=== PATIENT | male | born 1950 | race African-American/Black ===

== ENCOUNTER → 2020-03-06 13:56 | Outpatient (BNVA) | payer MEDICARE, SELFPAY | PROVIDERS: PCP Internal Medicine; Visit Provider Internal Medicine | DX: I82.890 Acute embolism and thrombosis of other specified veins (principal); Z51.81 Encounter for therapeutic drug level monitoring; Z79.01 Long term (current) use of anticoagulants | CPT/HCPCS: 85610 ==

== ENCOUNTER → 2020-04-03 13:58 | Outpatient (BNVA) | payer MEDICARE, SELFPAY | PROVIDERS: PCP Internal Medicine; Visit Provider Internal Medicine | DX: I82.890 Acute embolism and thrombosis of other specified veins (principal); Z51.81 Encounter for therapeutic drug level monitoring; Z79.01 Long term (current) use of anticoagulants | CPT/HCPCS: 85610; 99211 ==

== ENCOUNTER → 2020-05-01 14:05 | Outpatient (BNVA) | payer MEDICARE, SELFPAY | PROVIDERS: PCP Internal Medicine; Visit Provider Internal Medicine | DX: I82.890 Acute embolism and thrombosis of other specified veins (principal); Z51.81 Encounter for therapeutic drug level monitoring; Z79.01 Long term (current) use of anticoagulants | CPT/HCPCS: 85610; 99211 ==

== ENCOUNTER → 2020-05-29 14:28 | Outpatient (BNVA) | payer MEDICARE, SELFPAY | PROVIDERS: PCP Internal Medicine; Visit Provider Internal Medicine | DX: I82.890 Acute embolism and thrombosis of other specified veins (principal); Z51.81 Encounter for therapeutic drug level monitoring; Z79.01 Long term (current) use of anticoagulants | CPT/HCPCS: 85610; 99211 ==

== ENCOUNTER → 2020-06-26 13:43 | Outpatient (BNVA) | payer MEDICARE, SELFPAY | PROVIDERS: PCP Internal Medicine; Visit Provider Internal Medicine | DX: I82.890 Acute embolism and thrombosis of other specified veins (principal); Z51.81 Encounter for therapeutic drug level monitoring; Z79.01 Long term (current) use of anticoagulants | CPT/HCPCS: 85610; 99211 ==

== ENCOUNTER → 2020-07-24 14:21 | Outpatient (BNVA) | payer MEDICARE, SELFPAY | PROVIDERS: PCP Internal Medicine; Visit Provider Internal Medicine | DX: I82.890 Acute embolism and thrombosis of other specified veins (principal); Z51.81 Encounter for therapeutic drug level monitoring; Z79.01 Long term (current) use of anticoagulants | CPT/HCPCS: 85610; 99211 ==

== ENCOUNTER → 2020-08-21 14:26 | Outpatient (BNVA) | payer MEDICARE, SELFPAY | PROVIDERS: PCP Internal Medicine; Visit Provider Internal Medicine | DX: I82.890 Acute embolism and thrombosis of other specified veins (principal); Z51.81 Encounter for therapeutic drug level monitoring; Z79.01 Long term (current) use of anticoagulants | CPT/HCPCS: 85610; 99211 ==

== ENCOUNTER → 2020-09-18 14:24 | Outpatient (BNVA) | payer MEDICARE, SELFPAY | PROVIDERS: PCP Internal Medicine; Visit Provider Internal Medicine | DX: D73.5 Infarction of spleen (principal); Z51.81 Encounter for therapeutic drug level monitoring; Z79.01 Long term (current) use of anticoagulants | CPT/HCPCS: 85610; 99211 ==

== ENCOUNTER → 2020-10-19 15:15 | Outpatient (BNVA) | payer MEDICARE, SELFPAY | PROVIDERS: PCP Internal Medicine; Visit Provider Internal Medicine | DX: D73.5 Infarction of spleen (principal); Z51.81 Encounter for therapeutic drug level monitoring; Z79.01 Long term (current) use of anticoagulants | CPT/HCPCS: 85610; 99211 ==

== ENCOUNTER → 2020-11-14 15:20 | Outpatient (BNVA) | payer MEDICARE, SELFPAY | PROVIDERS: PCP Internal Medicine; Visit Provider Internal Medicine | DX: D73.5 Infarction of spleen (principal); Z51.81 Encounter for therapeutic drug level monitoring; Z79.01 Long term (current) use of anticoagulants | CPT/HCPCS: 85610; 99211 ==

== ENCOUNTER → 2020-12-12 14:34 | Outpatient (BNVA) | payer MEDICARE, SELFPAY | PROVIDERS: PCP Internal Medicine; Visit Provider Internal Medicine | DX: I82.409 Acute embolism and thrombosis of unspecified deep veins of unspecified lower extremity (principal); D73.5 Infarction of spleen; Z51.81 Encounter for therapeutic drug level monitoring; Z79.01 Long term (current) use of anticoagulants | CPT/HCPCS: 85610; 99211 ==

== ENCOUNTER → 2021-01-02 14:20 | Outpatient (BNVA) | payer MEDICARE, SELFPAY | PROVIDERS: PCP Internal Medicine; Visit Provider Internal Medicine | DX: I82.890 Acute embolism and thrombosis of other specified veins (principal); Z79.01 Long term (current) use of anticoagulants; Z51.81 Encounter for therapeutic drug level monitoring | CPT/HCPCS: 85610; 99211 ==

== ENCOUNTER → 2021-01-30 14:00 | Outpatient (BNVA) | payer MEDICARE, SELFPAY | PROVIDERS: PCP Internal Medicine; Visit Provider Internal Medicine | DX: D73.5 Infarction of spleen (principal); I82.409 Acute embolism and thrombosis of unspecified deep veins of unspecified lower extremity; Z51.81 Encounter for therapeutic drug level monitoring; Z79.01 Long term (current) use of anticoagulants | CPT/HCPCS: 85610; 99211 ==

== ENCOUNTER → 2021-02-27 14:38 | Outpatient (BNVA) | payer MEDICARE, SELFPAY | PROVIDERS: PCP Internal Medicine; Visit Provider Internal Medicine | DX: D73.5 Infarction of spleen (principal); Z51.81 Encounter for therapeutic drug level monitoring; Z79.01 Long term (current) use of anticoagulants | CPT/HCPCS: 85610; 99211 ==

== ENCOUNTER → 2021-03-27 14:10 | Outpatient (BNVA) | payer MEDICARE, SELFPAY | PROVIDERS: PCP Internal Medicine; Visit Provider Internal Medicine | DX: D73.5 Infarction of spleen (principal); Z51.81 Encounter for therapeutic drug level monitoring; Z79.01 Long term (current) use of anticoagulants | CPT/HCPCS: 85610; 99211 ==

== ENCOUNTER → 2021-04-24 13:56 | Outpatient (BNVA) | payer MEDICARE, SELFPAY | PROVIDERS: PCP Internal Medicine; Visit Provider Internal Medicine | DX: I82.409 Acute embolism and thrombosis of unspecified deep veins of unspecified lower extremity (principal); D73.5 Infarction of spleen; Z51.81 Encounter for therapeutic drug level monitoring; Z79.01 Long term (current) use of anticoagulants | CPT/HCPCS: 85610; 99211 ==

== ENCOUNTER → 2021-05-22 14:26 | Outpatient (BNVA) | payer MEDICARE, SELFPAY | PROVIDERS: PCP Internal Medicine; Visit Provider Internal Medicine | DX: D73.5 Infarction of spleen (principal); I82.409 Acute embolism and thrombosis of unspecified deep veins of unspecified lower extremity; Z51.81 Encounter for therapeutic drug level monitoring; Z79.01 Long term (current) use of anticoagulants | CPT/HCPCS: 85610; 99211 ==

== ENCOUNTER → 2021-06-19 14:17 | Outpatient (BNVA) | payer MEDICARE, SELFPAY | PROVIDERS: PCP Internal Medicine; Visit Provider Internal Medicine | DX: D73.5 Infarction of spleen (principal); I82.409 Acute embolism and thrombosis of unspecified deep veins of unspecified lower extremity; Z51.81 Encounter for therapeutic drug level monitoring; Z79.01 Long term (current) use of anticoagulants | CPT/HCPCS: 85610; 99211 ==

== ENCOUNTER → 2021-07-17 14:53 | Outpatient (BNVA) | payer MEDICARE, SELFPAY | PROVIDERS: PCP Internal Medicine; Visit Provider Internal Medicine | DX: D73.5 Infarction of spleen (principal); I82.409 Acute embolism and thrombosis of unspecified deep veins of unspecified lower extremity; Z51.81 Encounter for therapeutic drug level monitoring; Z79.01 Long term (current) use of anticoagulants | CPT/HCPCS: 85610; 99211 ==

== ENCOUNTER → 2021-08-14 14:31 | Outpatient (BNVA) | payer MEDICARE, SELFPAY | PROVIDERS: PCP Internal Medicine; Visit Provider Internal Medicine | DX: D73.5 Infarction of spleen (principal); I82.409 Acute embolism and thrombosis of unspecified deep veins of unspecified lower extremity; Z51.81 Encounter for therapeutic drug level monitoring; Z79.01 Long term (current) use of anticoagulants | CPT/HCPCS: 85610; 99211 ==

== ENCOUNTER → 2021-09-11 14:13 | Outpatient (BNVA) | payer MEDICARE, SELFPAY | PROVIDERS: PCP Internal Medicine; Visit Provider Internal Medicine | DX: I82.890 Acute embolism and thrombosis of other specified veins (principal); Z79.01 Long term (current) use of anticoagulants; Z51.81 Encounter for therapeutic drug level monitoring | CPT/HCPCS: 85610; 99211 ==

== ENCOUNTER → 2021-10-09 14:17 | Outpatient (BNVA) | payer MEDICARE, SELFPAY | PROVIDERS: PCP Internal Medicine; Visit Provider Internal Medicine | DX: I82.409 Acute embolism and thrombosis of unspecified deep veins of unspecified lower extremity (principal); D73.5 Infarction of spleen; Z79.01 Long term (current) use of anticoagulants; Z51.81 Encounter for therapeutic drug level monitoring | CPT/HCPCS: 85610; 99211 ==

== ENCOUNTER → 2021-11-06 14:09 | Outpatient (BNVA) | payer MEDICARE, SELFPAY | PROVIDERS: PCP Internal Medicine; Visit Provider Internal Medicine | DX: D73.5 Infarction of spleen (principal); I82.409 Acute embolism and thrombosis of unspecified deep veins of unspecified lower extremity; Z79.01 Long term (current) use of anticoagulants; Z51.81 Encounter for therapeutic drug level monitoring | CPT/HCPCS: 85610; 99211 ==

== ENCOUNTER → 2021-11-20 14:08 | Outpatient (BNVA) | payer MEDICARE, SELFPAY | PROVIDERS: PCP Internal Medicine; Visit Provider Internal Medicine | DX: D73.5 Infarction of spleen (principal); I82.409 Acute embolism and thrombosis of unspecified deep veins of unspecified lower extremity; Z51.81 Encounter for therapeutic drug level monitoring; Z79.01 Long term (current) use of anticoagulants | CPT/HCPCS: 85610; 99211 ==

== ENCOUNTER → 2021-12-04 14:12 | Outpatient (BNVA) | payer MEDICARE, SELFPAY | PROVIDERS: PCP Internal Medicine; Visit Provider Internal Medicine | DX: I82.890 Acute embolism and thrombosis of other specified veins (principal); Z51.81 Encounter for therapeutic drug level monitoring; Z79.01 Long term (current) use of anticoagulants | CPT/HCPCS: 85610; 99211 ==

== ENCOUNTER → 2022-01-08 14:16 | Outpatient (BNVA) | payer MEDICARE, SELFPAY | PROVIDERS: PCP Internal Medicine; Visit Provider Internal Medicine | DX: D73.5 Infarction of spleen (principal); Z79.01 Long term (current) use of anticoagulants; Z51.81 Encounter for therapeutic drug level monitoring | CPT/HCPCS: 85610; 99211 ==

== ENCOUNTER → 2022-02-05 14:26 | Outpatient (BNVA) | payer MEDICARE, SELFPAY | PROVIDERS: PCP Internal Medicine; Visit Provider Internal Medicine | DX: D73.5 Infarction of spleen (principal); Z79.01 Long term (current) use of anticoagulants; Z51.81 Encounter for therapeutic drug level monitoring | CPT/HCPCS: 85610; 99211 ==

== ENCOUNTER → 2022-03-19 14:12 | Outpatient (BNVA) | payer MEDICARE, SELFPAY | PROVIDERS: PCP Internal Medicine; Visit Provider Internal Medicine | DX: D73.5 Infarction of spleen (principal); I82.409 Acute embolism and thrombosis of unspecified deep veins of unspecified lower extremity; Z79.01 Long term (current) use of anticoagulants; Z51.81 Encounter for therapeutic drug level monitoring | CPT/HCPCS: 85610; 99211 ==

== ENCOUNTER → 2022-04-09 14:08 | Outpatient (BNVA) | payer MEDICARE, SELFPAY | PROVIDERS: PCP Internal Medicine; Visit Provider Internal Medicine | DX: D73.5 Infarction of spleen (principal); I82.409 Acute embolism and thrombosis of unspecified deep veins of unspecified lower extremity; Z79.01 Long term (current) use of anticoagulants; Z51.81 Encounter for therapeutic drug level monitoring | CPT/HCPCS: 85610; 99211 ==

== ENCOUNTER → 2022-05-07 14:09 | Outpatient (BNVA) | payer MEDICARE, SELFPAY | PROVIDERS: PCP Internal Medicine; Visit Provider Internal Medicine | DX: D73.5 Infarction of spleen (principal); Z86.718 Personal history of other venous thrombosis and embolism; Z79.01 Long term (current) use of anticoagulants; Z51.81 Encounter for therapeutic drug level monitoring | CPT/HCPCS: 85610; 99211 ==

== ENCOUNTER → 2022-06-04 14:01 | Outpatient (BNVA) | payer MEDICARE, SELFPAY | PROVIDERS: PCP Internal Medicine; Visit Provider Internal Medicine | DX: D73.5 Infarction of spleen (principal); I82.409 Acute embolism and thrombosis of unspecified deep veins of unspecified lower extremity; Z79.01 Long term (current) use of anticoagulants; Z51.81 Encounter for therapeutic drug level monitoring | CPT/HCPCS: 85610; 99211 ==

== ENCOUNTER → 2022-07-02 14:04 | Outpatient (BNVA) | payer MEDICARE, SELFPAY | PROVIDERS: PCP Internal Medicine; Visit Provider Internal Medicine | DX: D73.5 Infarction of spleen (principal); I82.409 Acute embolism and thrombosis of unspecified deep veins of unspecified lower extremity; Z79.01 Long term (current) use of anticoagulants; Z51.81 Encounter for therapeutic drug level monitoring | CPT/HCPCS: 85610; 99211 ==

== ENCOUNTER → 2022-07-30 13:56 | Outpatient (BNVA) | payer MEDICARE, SELFPAY | PROVIDERS: PCP Internal Medicine; Visit Provider Internal Medicine | DX: D73.5 Infarction of spleen (principal); I82.409 Acute embolism and thrombosis of unspecified deep veins of unspecified lower extremity; Z79.01 Long term (current) use of anticoagulants; Z51.81 Encounter for therapeutic drug level monitoring | CPT/HCPCS: 85610; 99211 ==

== ENCOUNTER → 2022-08-27 14:09 | Outpatient (BNVA) | payer MEDICARE, SELFPAY | PROVIDERS: PCP Internal Medicine; Visit Provider Internal Medicine | DX: D73.5 Infarction of spleen (principal); I82.409 Acute embolism and thrombosis of unspecified deep veins of unspecified lower extremity; Z79.01 Long term (current) use of anticoagulants; Z51.81 Encounter for therapeutic drug level monitoring | CPT/HCPCS: 85610; 99211 ==

== ENCOUNTER → 2022-09-17 14:38 | Outpatient (BNVA) | payer MEDICARE, SELFPAY | PROVIDERS: PCP Internal Medicine; Visit Provider Internal Medicine | DX: D73.5 Infarction of spleen (principal); I82.409 Acute embolism and thrombosis of unspecified deep veins of unspecified lower extremity; Z79.01 Long term (current) use of anticoagulants; Z51.81 Encounter for therapeutic drug level monitoring | CPT/HCPCS: 85610; 99211 ==

== ENCOUNTER → 2022-10-22 14:11 | Outpatient (BNVA) | payer MEDICARE, SELFPAY | PROVIDERS: PCP Internal Medicine; Visit Provider Internal Medicine | DX: D73.5 Infarction of spleen (principal); I82.409 Acute embolism and thrombosis of unspecified deep veins of unspecified lower extremity; Z79.01 Long term (current) use of anticoagulants; Z51.81 Encounter for therapeutic drug level monitoring | CPT/HCPCS: 85610; 99211 ==

== ENCOUNTER → 2022-11-19 14:08 | Outpatient (BNVA) | payer MEDICARE, SELFPAY | PROVIDERS: PCP Internal Medicine; Visit Provider Internal Medicine | DX: D73.5 Infarction of spleen (principal); Z79.01 Long term (current) use of anticoagulants; Z51.81 Encounter for therapeutic drug level monitoring | CPT/HCPCS: 85610; 99211 ==

== ENCOUNTER 2022-12-17 14:03 | Outpatient (AMB) | payer MEDICARE, SELFPAY ==
--- NOTE | 2022-12-17 14:07 | MHC.OFFVISCO ---
Intake Intake Visit Reasons: Anticoagulation Allergies No Known Allergies Allergy (Verified 12/17/22 14:03) Medication List - Last Reconciled 12/17/22 by Mary Santa RN allopurinol 300 mg PO DAILY fenofibrate 54 mg PO DAILY gabapentin 100 mg PO DAILY PRN hydrochlorothiazide 12.5 mg (1/2 x 25 mg) PO DAILY hydroxyurea 1,000 mg (2 x 500 mg) PO DAILY losartan 50 mg PO DAILY warfarin 1 mg See Protocol PO DAILY Nursing Note INR: 3.0- in therapeutic range Medications and supplements reviewed- no changes No changes in health, diet, medications, or supplements, Denies any signs and symptoms of bleeding or bruising or clotting. 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
[2022-12-18 06:40] LABS: Prothrombin Time Whole Bld POC 36.6 sec (11.1-13.5)
== END 2022-12-17 14:14 | disposition home or self-care (01) ==
LOC: HO.ACS 14:03
PROVIDERS: PCP Internal Medicine; Visit Provider Internal Medicine
DX: Z79.01 Long term (current) use of anticoagulants (principal)

== ENCOUNTER → 2022-12-17 14:03 | Outpatient (BNVA) | payer MEDICARE, SELFPAY | PROVIDERS: PCP Internal Medicine; Visit Provider Internal Medicine | DX: D73.5 Infarction of spleen (principal); Z79.01 Long term (current) use of anticoagulants; Z51.81 Encounter for therapeutic drug level monitoring | CPT/HCPCS: 85610; 99211 ==

== ENCOUNTER 2023-01-21 14:16 | Outpatient (AMB) | payer MEDICARE, SELFPAY ==
[2023-01-21 14:25] LABS: Prothrombin Time Whole Bld POC 36.8 sec (11.1-13.5); ~PT, ~INR - Anti Coag Clinic 3.1 (0.9-1.1)
--- NOTE | 2023-01-21 14:26 | MHC.OFFVISCO ---
Intake Intake Visit Reasons: Anticoagulation Allergies No Known Allergies Allergy (Verified 01/21/23 14:18) Medication List - Last Reconciled 01/21/23 by Mariel Wood RN allopurinol 300 mg PO DAILY fenofibrate 54 mg PO DAILY gabapentin 100 mg PO DAILY PRN hydrochlorothiazide 12.5 mg (1/2 x 25 mg) PO DAILY hydroxyurea 1,000 mg (2 x 500 mg) PO DAILY losartan 50 mg PO DAILY warfarin 1 mg See Protocol PO DAILY Nursing Note NO CP,SOB,DIET/MED CHANGES,FALLS OR SX OF BLEEDING. CONTINUE PRESENT DOSE AND FOLLOW-UP IN 4 WEEKS. GOOD UNDERSTANDING OF DOSING INSTR. Coding Level of Care Code Est Patient Level 1 Diagnoses Current use of anticoagulant therapy Z79.01 Assessment & Plan Assessment & Plan (1) Current use of anticoagulant therapy: Code(s): Z79.01 - [facility] (current) use of anticoagulants Category: Medical
== END 2023-01-21 14:29 | disposition home or self-care (01) ==
LOC: HO.ACS 14:16
PROVIDERS: PCP Internal Medicine; Visit Provider Internal Medicine
DX: Z79.01 Long term (current) use of anticoagulants (principal)

== ENCOUNTER → 2023-01-21 14:16 | Outpatient (BNVA) | payer MEDICARE, SELFPAY | PROVIDERS: PCP Internal Medicine; Visit Provider Internal Medicine | DX: D73.5 Infarction of spleen (principal); Z79.01 Long term (current) use of anticoagulants; Z51.81 Encounter for therapeutic drug level monitoring | CPT/HCPCS: 85610; 99211 ==

== ENCOUNTER 2023-02-25 14:20 | Outpatient (AMB) | payer MEDICARE, SELFPAY ==
[2023-02-25 14:31] LABS: Prothrombin Time Whole Bld POC 31.5 sec (11.1-13.5); ~PT, ~INR - Anti Coag Clinic 2.6 (0.9-1.1)
--- NOTE | 2023-02-25 14:31 | MHC.OFFVISCO ---
Intake Intake Visit Reasons: Anticoagulation Allergies No Known Allergies Allergy (Verified 02/25/23 14:26) Medication List - Last Reconciled 02/25/23 by Mary Santa RN allopurinol 300 mg PO DAILY fenofibrate 54 mg PO DAILY gabapentin 100 mg PO DAILY PRN hydrochlorothiazide 12.5 mg (1/2 x 25 mg) PO DAILY hydroxyurea 1,000 mg (2 x 500 mg) PO DAILY losartan 50 mg PO DAILY warfarin 1 mg See Protocol PO DAILY Nursing Note INR: 2.6- in therapeutic range Medications and supplements reviewed No changes in health, diet, medications, or supplements, Denies any signs and symptoms of bleeding or bruising or clotting. 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
== END 2023-02-25 14:36 | disposition home or self-care (01) ==
LOC: HO.ACS 14:20
PROVIDERS: PCP Internal Medicine; Visit Provider Internal Medicine
DX: Z79.01 Long term (current) use of anticoagulants (principal)

== ENCOUNTER → 2023-02-25 14:20 | Outpatient (BNVA) | payer MEDICARE, SELFPAY | PROVIDERS: PCP Internal Medicine; Visit Provider Internal Medicine | DX: I82.890 Acute embolism and thrombosis of other specified veins (principal); Z51.81 Encounter for therapeutic drug level monitoring; Z79.01 Long term (current) use of anticoagulants | CPT/HCPCS: 85610; 99211 ==

== ENCOUNTER 2023-03-26 15:20 | Outpatient (AMB) | payer MEDICARE, SELFPAY ==
[2023-03-26 15:29] LABS: Prothrombin Time Whole Bld POC 40.3 sec (11.1-13.5); ~PT, ~INR - Anti Coag Clinic 3.4 (0.9-1.1)
--- NOTE | 2023-03-26 15:52 | MHC.OFFVISCO ---
Intake Intake Visit Reasons: Anticoagulation Allergies No Known Allergies Allergy (Verified 03/26/23 15:20) Medication List - Last Reconciled 03/26/23 by Tawny Pruitt RN allopurinol 300 mg PO DAILY fenofibrate 54 mg PO DAILY gabapentin 100 mg PO DAILY PRN hydrochlorothiazide 12.5 mg (1/2 x 25 mg) PO DAILY hydroxyurea 1,000 mg (2 x 500 mg) PO DAILY losartan 50 mg PO DAILY warfarin 1 mg See Protocol PO DAILY Nursing Note INR 3.4?? out of therapeutic range Medications and supplements reviewed Patient status: HAS N OT HAD ENOUGH GREENS, B/P HAS BEEN GOOD HCTZ WILL BE D/CD 03/30/23 TO PRESERVE RENAL FUNCTION Medications or supplements: 03/30/23 D/C HCTC Diet: GOOD NO GREENS X 2-3 WWEKS Denies any signs and symptoms of bleeding or clotting or unusual bruising Bleeding, bruising, clotting discussed Nutritional guidance given: GREENS WEEKLY Dose: .5MG X 2 DAYS THIS WEEK THEN RESUME .5MG X 1 DAY/ 1MG X 6 DAYS F/U INR Date : 04/08/23 WED?? Patient verbalizing understanding of instructions given. Coding Level of Care Code Est Patient Level 1 Diagnoses Current use of anticoagulant therapy Z79.01 Assessment & Plan Assessment & Plan (1) Current use of anticoagulant therapy: Code(s): Z79.01 - [facility] (current) use of anticoagulants Category: Medical
== END 2023-03-26 15:54 | disposition home or self-care (01) ==
LOC: HO.ACS 15:20
PROVIDERS: PCP Internal Medicine; Visit Provider Internal Medicine
DX: Z79.01 Long term (current) use of anticoagulants (principal)

== ENCOUNTER → 2023-03-26 15:20 | Outpatient (BNVA) | payer MEDICARE, SELFPAY | PROVIDERS: PCP Internal Medicine; Visit Provider Internal Medicine | DX: D73.5 Infarction of spleen (principal); Z79.01 Long term (current) use of anticoagulants; Z51.81 Encounter for therapeutic drug level monitoring | CPT/HCPCS: 85610; 99211 ==

== ENCOUNTER 2023-04-09 15:07 | Outpatient (AMB) | payer MEDICARE, SELFPAY ==
[2023-04-09 15:13] LABS: ~PT, ~INR - Anti Coag Clinic 2.8 (0.9-1.1)
--- NOTE | 2023-04-09 15:15 | MHC.OFFVISCO ---
Intake Intake Visit Reasons: Anticoagulation Allergies No Known Allergies Allergy (Verified 04/09/23 15:08) Medication List - Last Reconciled 04/09/23 by Mary Santa RN allopurinol 300 mg PO DAILY fenofibrate 54 mg PO DAILY gabapentin 100 mg PO DAILY PRN hydrochlorothiazide 12.5 mg (1/2 x 25 mg) PO DAILY hydroxyurea 1,000 mg (2 x 500 mg) PO DAILY losartan 50 mg PO DAILY warfarin 1 mg See Protocol PO DAILY Nursing Note INR: 2.8- in therapeutic range of 2-3 Medications and supplements reviewed- pt states hctz d/c- no interaction per [employer] No changes in health, diet, medications, or supplements, Denies any signs and symptoms of bleeding or bruising or clotting. 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
== END 2023-04-09 15:24 | disposition home or self-care (01) ==
LOC: HO.ACS 15:07
PROVIDERS: PCP Internal Medicine; Visit Provider Internal Medicine
DX: Z79.01 Long term (current) use of anticoagulants (principal)

== ENCOUNTER → 2023-04-09 15:07 | Outpatient (BNVA) | payer MEDICARE, SELFPAY | PROVIDERS: PCP Internal Medicine; Visit Provider Internal Medicine | DX: D73.5 Infarction of spleen (principal); Z79.01 Long term (current) use of anticoagulants; Z51.81 Encounter for therapeutic drug level monitoring | CPT/HCPCS: 85610; 99211 ==

== ENCOUNTER 2023-05-06 14:22 | Outpatient (AMB) | payer MEDICARE, SELFPAY ==
--- NOTE | 2023-05-06 14:37 | MHC.OFFVISCO ---
Intake Intake Visit Reasons: Anticoagulation Allergies No Known Allergies Allergy (Verified 05/06/23 14:30) Medication List - Last Reconciled 05/06/23 by Mary Santa RN allopurinol 300 mg PO DAILY fenofibrate 54 mg PO DAILY gabapentin 100 mg PO DAILY PRN hydroxyurea 1,000 mg (2 x 500 mg) PO DAILY losartan 50 mg PO DAILY warfarin 1 mg See Protocol PO DAILY Nursing Note INR: 2.9- in therapeutic range of 2-3 Medications and supplements reviewed- no changes No changes in health, diet, medications, or supplements, Denies any signs and symptoms of bleeding or bruising or clotting. Bleeding, bruising, clotting discussed Nutritional guidance given Dose: 1mg x 6, 0.5mg x 1 F/U INR: 4 weeks Patient verbalizes understanding of instructions given Coding Level of Care Code Est Patient Level 1 Diagnoses Current use of anticoagulant therapy Z79.01 Results AMB INR Fingerstick AMB INR Fingerstick 2.9 Last Edit by Mary Santa RN on 05/06/23 14:40 Assessment & Plan Assessment & Plan (1) Current use of anticoagulant therapy: Code(s): Z79.01 - intermediate (current) use of anticoagulants Category: Medical
[2023-05-07 09:17] LABS: Prothrombin Time Whole Bld POC 34.5 sec (11.1-13.5); ~PT, ~INR - Anti Coag Clinic 2.9 (0.9-1.1)
== END 2023-05-06 14:43 | disposition home or self-care (01) ==
LOC: HO.ACS 14:22
PROVIDERS: PCP Internal Medicine; Visit Provider Internal Medicine
DX: Z79.01 Long term (current) use of anticoagulants (principal)

== ENCOUNTER → 2023-05-06 14:22 | Outpatient (BNVA) | payer MEDICARE, SELFPAY | PROVIDERS: PCP Internal Medicine; Visit Provider Internal Medicine | DX: D73.5 Infarction of spleen (principal); Z79.01 Long term (current) use of anticoagulants; Z51.81 Encounter for therapeutic drug level monitoring | CPT/HCPCS: 85610; 99211 ==

== ENCOUNTER 2023-06-03 14:29 | Outpatient (AMB) | payer MEDICARE, SELFPAY ==
[2023-06-03 14:37] LABS: Prothrombin Time Whole Bld POC 35.6 sec (11.1-13.5)
--- NOTE | 2023-06-03 14:44 | MHC.OFFVISCO ---
Intake Intake Visit Reasons: Anticoagulation Allergies No Known Allergies Allergy (Verified 06/03/23 14:31) Medication List - Last Reconciled 06/03/23 by Mariel Wood RN allopurinol 300 mg PO DAILY fenofibrate 54 mg PO DAILY gabapentin 100 mg PO DAILY PRN hydroxyurea 1,000 mg (2 x 500 mg) PO DAILY losartan 50 mg PO DAILY warfarin 1 mg See Protocol PO DAILY Nursing Note NO CP,SOB,DIEWT/MED CHANGES,FALLS OR SX OF BLEEDING. CONTINUE PRESENT DOSE AND FOLLOW-UP IN 4 WEEKS. GOOD UNDERSTANDING OF DOSING INSTR. Coding Level of Care Code Est Patient Level 1 Diagnoses Current use of anticoagulant therapy Z79.01 Assessment & Plan Assessment & Plan (1) Current use of anticoagulant therapy: Code(s): Z79.01 - group home (current) use of anticoagulants Category: Medical
== END 2023-06-03 14:46 | disposition home or self-care (01) ==
LOC: HO.ACS 14:29
PROVIDERS: PCP Internal Medicine; Visit Provider Internal Medicine
DX: Z79.01 Long term (current) use of anticoagulants (principal)

== ENCOUNTER → 2023-06-03 14:29 | Outpatient (BNVA) | payer MEDICARE, SELFPAY | PROVIDERS: PCP Internal Medicine; Visit Provider Internal Medicine | DX: D73.5 Infarction of spleen (principal); Z79.01 Long term (current) use of anticoagulants; Z51.81 Encounter for therapeutic drug level monitoring | CPT/HCPCS: 85610; 99211 ==

== ENCOUNTER 2023-07-01 14:15 | Outpatient (AMB) | payer MEDICARE, SELFPAY ==
--- NOTE | 2023-07-01 14:26 | MHC.OFFVISCO ---
Intake Intake Visit Reasons: Anticoagulation Allergies No Known Allergies Allergy (Verified 07/01/23 14:17) Medication List - Last Reconciled 07/01/23 by Mary Santa RN allopurinol 300 mg PO DAILY fenofibrate 54 mg PO DAILY gabapentin 100 mg PO DAILY PRN hydroxyurea 1,000 mg (2 x 500 mg) PO DAILY losartan 50 mg PO DAILY warfarin 1 mg See Protocol PO DAILY Nursing Note INR 3.2-? out of therapeutic range of 2-3 Medications and supplements reviewed Patient status: no c.o, denies etoh, tylenol or med changes Medications or supplements: no changes Diet: hasnt had many greens Denies any signs and symptoms of bleeding or clotting or unusual bruising Bleeding, bruising, clotting discussed Nutritional guidance given: increase greens in weekly diet Dose: pt req 0.5mg today then cont 1mg x 6, 0.5mg x 1 F/U INR Date : pt req 4 weeks?? Patient verbalizing understanding of instructions given. 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
[2023-07-01 14:28] LABS: Prothrombin Time Whole Bld POC 38.5 sec (11.1-13.5); ~PT, ~INR - Anti Coag Clinic 3.2 (0.9-1.1)
== END 2023-07-01 14:33 | disposition home or self-care (01) ==
LOC: HO.ACS 14:15
PROVIDERS: PCP Internal Medicine; Visit Provider Internal Medicine
DX: Z79.01 Long term (current) use of anticoagulants (principal)

== ENCOUNTER → 2023-07-01 14:15 | Outpatient (BNVA) | payer MEDICARE, SELFPAY | PROVIDERS: PCP Internal Medicine; Visit Provider Internal Medicine | DX: D73.5 Infarction of spleen (principal); Z79.01 Long term (current) use of anticoagulants; Z51.81 Encounter for therapeutic drug level monitoring | CPT/HCPCS: 85610; 99211 ==

== ENCOUNTER 2023-07-29 14:20 | Outpatient (AMB) | payer MEDICARE, SELFPAY ==
--- NOTE | 2023-07-29 14:33 | MHC.OFFVISCO ---
Intake Intake Visit Reasons: Anticoagulation Allergies No Known Allergies Allergy (Verified 07/29/23 14:26) Medication List - Last Reconciled 07/29/23 by Mary Santa RN allopurinol 300 mg PO DAILY fenofibrate 54 mg PO DAILY gabapentin 100 mg PO DAILY PRN hydroxyurea 1,000 mg (2 x 500 mg) PO DAILY losartan 50 mg PO DAILY warfarin 1 mg See Protocol PO DAILY Nursing Note INR: 3.0- in therapeutic range of 2-3 Medications and supplements reviewed- no changes No changes in health, diet, medications, or supplements, Denies any signs and symptoms of bleeding or bruising or clotting. 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
== END 2023-07-29 14:47 | disposition home or self-care (01) ==
LOC: HO.ACS 14:20
PROVIDERS: PCP Internal Medicine; Visit Provider Internal Medicine
DX: Z79.01 Long term (current) use of anticoagulants (principal)

== ENCOUNTER → 2023-07-29 14:20 | Outpatient (BNVA) | payer MEDICARE, SELFPAY | PROVIDERS: PCP Internal Medicine; Visit Provider Internal Medicine | DX: D73.5 Infarction of spleen (principal); Z79.01 Long term (current) use of anticoagulants; Z51.81 Encounter for therapeutic drug level monitoring | CPT/HCPCS: 85610; 99211 ==

== ENCOUNTER 2023-08-26 14:06 | Outpatient (AMB) | payer MEDICARE, SELFPAY ==
--- NOTE | 2023-08-26 14:20 | MHC.OFFVISCO ---
Intake Intake Visit Reasons: Anticoagulation Allergies No Known Allergies Allergy (Verified 08/26/23 14:13) Medication List - Last Reconciled 08/26/23 by Mary Santa RN allopurinol 300 mg PO DAILY fenofibrate 54 mg PO DAILY gabapentin 100 mg PO DAILY PRN hydroxyurea 1,000 mg (2 x 500 mg) PO DAILY losartan 50 mg PO DAILY warfarin 1 mg See Protocol PO DAILY Nursing Note INR: 2.8- in therapeutic range of 2-3 Medications and supplements reviewed No changes in health, diet, medications, or supplements, Denies any signs and symptoms of bleeding or bruising or clotting. 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
[2023-08-26 14:21] LABS: Prothrombin Time Whole Bld POC 33.4 sec (11.1-13.5); ~PT, ~INR - Anti Coag Clinic 2.8 (0.9-1.1)
== END 2023-08-26 14:33 | disposition home or self-care (01) ==
LOC: HO.ACS 14:06
PROVIDERS: PCP Internal Medicine; Visit Provider Internal Medicine
DX: Z79.01 Long term (current) use of anticoagulants (principal)

== ENCOUNTER → 2023-08-26 14:06 | Outpatient (BNVA) | payer MEDICARE, SELFPAY | PROVIDERS: PCP Internal Medicine; Visit Provider Internal Medicine | DX: D73.5 Infarction of spleen (principal); Z51.81 Encounter for therapeutic drug level monitoring; Z79.01 Long term (current) use of anticoagulants | CPT/HCPCS: 85610; 99211 ==

== ENCOUNTER 2023-09-23 14:28 | Outpatient (AMB) | payer MEDICARE, SELFPAY ==
[2023-09-23 14:33] LABS: Prothrombin Time Whole Bld POC 36.4 sec (11.1-13.5)
--- NOTE | 2023-09-23 14:39 | MHC.OFFVISCO ---
Intake Intake Visit Reasons: Anticoagulation Allergies No Known Allergies Allergy (Verified 09/23/23 14:28) Medication List - Last Reconciled 09/23/23 by Mariel Wood RN allopurinol 300 mg PO DAILY fenofibrate 54 mg PO DAILY gabapentin 100 mg PO DAILY PRN hydroxyurea 1,000 mg (2 x 500 mg) PO DAILY losartan 50 mg PO DAILY warfarin 1 mg See Protocol PO DAILY Nursing Note NO CP,SOB,DIET/MED CHANGES,FALLS OR SX OF BLEEDING. CONTINUE PRESENT DOSE AND FOLLOW-UP IN 4 WEEKS. GOOD UNBDERSTANDING OF DOSING INSTR. Coding Level of Care Code Est Patient Level 1 Diagnoses Current use of anticoagulant therapy Z79.01 Assessment & Plan Assessment & Plan (1) Current use of anticoagulant therapy: Code(s): Z79.01 - care home (current) use of anticoagulants Category: Medical
== END 2023-09-23 14:40 | disposition home or self-care (01) ==
LOC: HO.ACS 14:28
PROVIDERS: PCP Internal Medicine; Visit Provider Internal Medicine
DX: Z79.01 Long term (current) use of anticoagulants (principal)

== ENCOUNTER → 2023-09-23 14:28 | Outpatient (BNVA) | payer MEDICARE, SELFPAY | PROVIDERS: PCP Internal Medicine; Visit Provider Internal Medicine | DX: I82.890 Acute embolism and thrombosis of other specified veins (principal); Z51.81 Encounter for therapeutic drug level monitoring; Z79.01 Long term (current) use of anticoagulants | CPT/HCPCS: 85610; 99211 ==

== ENCOUNTER 2023-10-28 14:09 | Outpatient (AMB) | payer MEDICARE, SELFPAY ==
--- NOTE | 2023-10-28 14:26 | MHC.OFFVISCO ---
Intake Intake Visit Reasons: Anticoagulation Allergies No Known Allergies Allergy (Verified 10/28/23 14:16) Medication List - Last Reconciled 10/28/23 by Mary Santa RN allopurinol 300 mg PO DAILY fenofibrate 54 mg PO DAILY gabapentin 100 mg PO DAILY PRN hydroxyurea 1,000 mg (2 x 500 mg) PO DAILY losartan 50 mg PO DAILY warfarin 1 mg See Protocol PO DAILY Nursing Note INR 3.2-? out of therapeutic range of 2-3 Medications and supplements reviewed Patient status: no c.o Medications or supplements: no changes, taking aleve prn - aware of bleed risk, tylenol preferred Diet: same Denies any signs and symptoms of bleeding or clotting or unusual bruising Bleeding, bruising, clotting discussed Nutritional guidance given: eat greens if able Dose: pt req 0.5mg today and then will conr reg dosing 1mg x 6, 0.5mg x 1 F/U INR Date : req 4 weeks? Patient verbalizing understanding of instructions given. 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
[2023-10-28 14:32] LABS: Prothrombin Time Whole Bld POC 38.3 sec (11.1-13.5); ~PT, ~INR - Anti Coag Clinic 3.2 (0.9-1.1)
== END 2023-10-28 14:36 | disposition home or self-care (01) ==
LOC: HO.ACS 14:09
PROVIDERS: PCP Internal Medicine; Visit Provider Internal Medicine
DX: Z79.01 Long term (current) use of anticoagulants (principal)

== ENCOUNTER → 2023-10-28 14:09 | Outpatient (BNVA) | payer MEDICARE, SELFPAY | PROVIDERS: PCP Internal Medicine; Visit Provider Internal Medicine | DX: D73.5 Infarction of spleen (principal); Z79.01 Long term (current) use of anticoagulants; Z51.81 Encounter for therapeutic drug level monitoring | CPT/HCPCS: 85610; 99211 ==

== ENCOUNTER 2023-11-25 14:17 | Outpatient (AMB) | payer MEDICARE, SELFPAY ==
[2023-11-25 14:27] LABS: ~PT, ~INR - Anti Coag Clinic 2.2 (0.9-1.1)
--- NOTE | 2023-11-25 14:37 | MHC.OFFVISCO ---
Intake Intake Visit Reasons: Anticoagulation Allergies No Known Allergies Allergy (Verified 11/25/23 14:21) Medication List - Last Reconciled 11/25/23 by Tawny Pruitt RN allopurinol 300 mg PO DAILY fenofibrate 54 mg PO DAILY gabapentin 100 mg PO DAILY PRN hydroxyurea 1,000 mg (2 x 500 mg) PO DAILY losartan 50 mg PO DAILY warfarin 1 mg See Protocol PO DAILY Nursing Note INR: 2.2 in therapeutic range Medications and supplements reviewed No changes in health, diet, medications, or supplements, Denies any signs and symptoms of bleeding or bruising or clotting. Bleeding, bruising, clotting discussed Nutritional guidance given Dose: .5MG X 1 DAY/ 1MG X 6 DAYS F/U INR: 1 MONTH Patient verbalizes understanding of instructions given Coding Level of Care Code Est Patient Level 1 Diagnoses Current use of anticoagulant therapy Z79.01 Results AMB INR Fingerstick AMB INR Fingerstick 2.2 Last Edit by Tawny Pruitt RN on 11/25/23 14:28 MANUAL ENTRY Assessment & Plan Assessment & Plan (1) Current use of anticoagulant therapy: Code(s): Z79.01 - shelter (current) use of anticoagulants Category: Medical
== END 2023-11-25 14:39 | disposition home or self-care (01) ==
LOC: HO.ACS 14:17
PROVIDERS: PCP Internal Medicine; Visit Provider Internal Medicine
DX: Z79.01 Long term (current) use of anticoagulants (principal)

== ENCOUNTER → 2023-11-25 14:17 | Outpatient (BNVA) | payer MEDICARE, SELFPAY | PROVIDERS: PCP Internal Medicine; Visit Provider Internal Medicine | DX: I82.890 Acute embolism and thrombosis of other specified veins (principal); Z51.81 Encounter for therapeutic drug level monitoring; Z79.01 Long term (current) use of anticoagulants | CPT/HCPCS: 85610; 99211 ==

== ENCOUNTER 2023-12-30 14:18 | Outpatient (AMB) | payer MEDICARE, SELFPAY ==
--- NOTE | 2023-12-30 14:24 | MHC.OFFVISCO ---
Intake Intake Visit Reasons: Anticoagulation Allergies No Known Allergies Allergy (Verified 12/30/23 14:19) Medication List - Last Reconciled 12/30/23 by Mary Santa RN allopurinol 300 mg PO DAILY fenofibrate 54 mg PO DAILY gabapentin 100 mg PO DAILY PRN hydroxyurea 1,000 mg (2 x 500 mg) PO DAILY losartan 50 mg PO DAILY warfarin 1 mg See Protocol PO DAILY Nursing Note INR: 2.8- in therapeutic range of 2-3 Medications and supplements reviewed No changes in health, diet, medications, or supplements, Denies any signs and symptoms of bleeding or bruising or clotting. Bleeding, bruising, clotting discussed Nutritional guidance given Dose: 1mg x 6, 0.5mg x 1 F/U INR: 4 weeks Patient verbalizes understanding of instructions given Coding Level of Care Code Est Patient Level 1 Diagnoses Current use of anticoagulant therapy Z79.01 Assessment & Plan Assessment & Plan (1) Current use of anticoagulant therapy: Code(s): Z79.01 - shelter (current) use of anticoagulants Category: Medical
[2023-12-30 14:25] LABS: Prothrombin Time Whole Bld POC 33.8 sec (11.1-13.5); ~PT, ~INR - Anti Coag Clinic 2.8 (0.9-1.1)
== END 2023-12-30 14:30 | disposition home or self-care (01) ==
LOC: HO.ACS 14:18
PROVIDERS: PCP Internal Medicine; Visit Provider Internal Medicine
DX: Z79.01 Long term (current) use of anticoagulants (principal)

== ENCOUNTER → 2023-12-30 14:18 | Outpatient (BNVA) | payer MEDICARE, SELFPAY | PROVIDERS: PCP Internal Medicine; Visit Provider Internal Medicine | DX: D73.5 Infarction of spleen (principal); Z79.01 Long term (current) use of anticoagulants; Z51.81 Encounter for therapeutic drug level monitoring | CPT/HCPCS: 85610; 99211 ==

== ENCOUNTER 2024-01-27 14:19 | Outpatient (AMB) | payer MEDICARE, SELFPAY ==
--- NOTE | 2024-01-27 14:36 | MHC.OFFVISCO ---
Intake Intake Visit Reasons: Anticoagulation Allergies No Known Allergies Allergy (Verified 01/27/24 14:28) Medication List - Last Reconciled 01/27/24 by Mary Santa RN allopurinol 300 mg PO DAILY fenofibrate 54 mg PO DAILY gabapentin 100 mg PO DAILY PRN hydroxyurea 1,000 mg (2 x 500 mg) PO DAILY losartan 50 mg PO DAILY warfarin 1 mg See Protocol PO DAILY Nursing Note INR: 2.6- in therapeutic range of 2-3 Medications and supplements reviewed No changes in health, diet, medications, or supplements, Denies any signs and symptoms of bleeding or bruising or clotting. Bleeding, bruising, clotting discussed Nutritional guidance given Dose: 1 mg x 6, 0.5mg x 1 F/U INR: 4 weeks Patient verbalizes understanding of instructions given Coding Level of Care Code Est Patient Level 1 Diagnoses Current use of anticoagulant therapy Z79.01 Assessment & Plan Assessment & Plan (1) Current use of anticoagulant therapy: Code(s): Z79.01 - nursing home (current) use of anticoagulants Category: Medical
[2024-01-27 14:38] LABS: Prothrombin Time Whole Bld POC 31.1 sec (11.1-13.5); ~PT, ~INR - Anti Coag Clinic 2.6 (0.9-1.1)
== END 2024-01-27 14:42 | disposition home or self-care (01) ==
LOC: HO.ACS 14:19
PROVIDERS: PCP Internal Medicine; Visit Provider Internal Medicine
DX: Z79.01 Long term (current) use of anticoagulants (principal)

== ENCOUNTER → 2024-01-27 14:19 | Outpatient (BNVA) | payer MEDICARE, SELFPAY | PROVIDERS: PCP Internal Medicine; Visit Provider Internal Medicine | DX: D73.5 Infarction of spleen (principal); Z79.01 Long term (current) use of anticoagulants; Z51.81 Encounter for therapeutic drug level monitoring | CPT/HCPCS: 85610; 99211 ==

== ENCOUNTER 2024-03-02 14:23 | Outpatient (AMB) | payer MEDICARE, SELFPAY ==
[2024-03-02 14:41] LABS: Prothrombin Time Whole Bld POC 29.8 sec (11.1-13.5); ~PT, ~INR - Anti Coag Clinic 2.5 (0.9-1.1)
--- NOTE | 2024-03-02 14:51 | MHC.OFFVISCO ---
Intake Intake Visit Reasons: Anticoagulation Allergies No Known Allergies Allergy (Verified 03/02/24 14:30) Medication List - Last Reconciled 03/02/24 by Mariel Wood RN allopurinol 300 mg PO DAILY fenofibrate 54 mg PO DAILY gabapentin 100 mg PO DAILY PRN hydroxyurea 1,000 mg (2 x 500 mg) PO DAILY losartan 50 mg PO DAILY warfarin 1 mg See Protocol PO DAILY Nursing Note NO CP,SOB,DIET CHANGES,FALLS OR SX OF BLEEDING. PT.INFORMS THAT LOSARTAN INCREASED TO 100MGM DAILY CONTINUE PRESENT WARFARIN DOSE AND FOLLOW-UP IN 4 WEEKS. GOOD UNDERSTANDING OF DOSING INSTR. Coding Level of Care Code Est Patient Level 1 Diagnoses Current use of anticoagulant therapy Z79.01 Assessment & Plan Assessment & Plan (1) Current use of anticoagulant therapy: Code(s): Z79.01 - [facility] (current) use of anticoagulants Category: Medical Medications: New losartan 100 mg PO DAILY
== END 2024-03-02 14:54 | disposition home or self-care (01) ==
LOC: HO.ACS 14:23
PROVIDERS: PCP Internal Medicine; Visit Provider Internal Medicine
DX: Z79.01 Long term (current) use of anticoagulants (principal)

== ENCOUNTER → 2024-03-02 14:23 | Outpatient (BNVA) | payer MEDICARE, SELFPAY | PROVIDERS: PCP Internal Medicine; Visit Provider Internal Medicine | DX: D73.5 Infarction of spleen (principal); Z79.01 Long term (current) use of anticoagulants; Z51.81 Encounter for therapeutic drug level monitoring | CPT/HCPCS: 85610; 99211 ==

== ENCOUNTER 2024-03-30 14:02 | Outpatient (AMB) | payer MEDICARE, SELFPAY ==
--- NOTE | 2024-03-30 14:07 | MHC.OFFVISCO ---
Intake Intake Visit Reasons: Anticoagulation Allergies No Known Allergies Allergy (Verified 03/30/24 14:03) Medication List - Last Reconciled 03/30/24 by Mary Santa RN allopurinol 300 mg PO DAILY fenofibrate 54 mg PO DAILY gabapentin 100 mg PO DAILY PRN hydroxyurea 1,000 mg (2 x 500 mg) PO DAILY losartan 100 mg PO DAILY warfarin 1 mg See Protocol PO DAILY Nursing Note INR 3.2-?? out of therapeutic range of 2-3 Medications and supplements reviewed Patient status: pt c.o aches from [facility] - took aleve, aware increased risk of bleeding Medications or supplements: no changes Diet: appetite is good, has been drinking cranberry juice Denies any signs and symptoms of bleeding or clotting or unusual bruising Bleeding, bruising, clotting discussed Nutritional guidance given: eat greens to lower Dose: 1mg x 6, 0.5mg x 1 F/U INR Date : pt req 4 weeks Patient verbalizing understanding of instructions given. 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
[2024-03-30 14:08] LABS: Prothrombin Time Whole Bld POC 38.4 sec (11.1-13.5); ~PT, ~INR - Anti Coag Clinic 3.2 (0.9-1.1)
== END 2024-03-30 14:35 | disposition home or self-care (01) ==
LOC: HO.ACS 14:02
PROVIDERS: PCP Internal Medicine; Visit Provider Internal Medicine
DX: Z79.01 Long term (current) use of anticoagulants (principal)

== ENCOUNTER → 2024-03-30 14:02 | Outpatient (BNVA) | payer MEDICARE, SELFPAY | PROVIDERS: PCP Internal Medicine; Visit Provider Internal Medicine | DX: D73.5 Infarction of spleen (principal); Z79.01 Long term (current) use of anticoagulants; Z51.81 Encounter for therapeutic drug level monitoring | CPT/HCPCS: 85610; 99211 ==

== ENCOUNTER 2024-04-27 14:23 | Outpatient (AMB) | payer MEDICARE, SELFPAY ==
--- NOTE | 2024-04-27 14:33 | MHC.OFFVISCO ---
Intake Intake Visit Reasons: Anticoagulation Allergies No Known Allergies Allergy (Verified 04/27/24 14:25) Medication List - Last Reconciled 04/27/24 by Mary Santa RN allopurinol 150 mg PO DAILY fenofibrate 54 mg PO DAILY gabapentin 100 mg PO DAILY PRN hydroxyurea 1,000 mg (2 x 500 mg) PO DAILY losartan 100 mg PO DAILY warfarin 1 mg See Protocol PO DAILY Nursing Note INR: 2.7- in therapeutic range of 2-3 Medications and supplements reviewed No changes in health, diet, medications, or supplements, Denies any signs and symptoms of bleeding or bruising or clotting. Bleeding, bruising, clotting discussed Nutritional guidance given Dose: 1mg x 6, 0.5mg x 1 F/U INR- pt req 5 weeks Patient verbalizes understanding of instructions given Coding Level of Care Code Est Patient Level 1 Diagnoses Current use of anticoagulant therapy Z79.01 Assessment & Plan Assessment & Plan (1) Current use of anticoagulant therapy: Code(s): Z79.01 - jail (current) use of anticoagulants Category: Medical
[2024-04-27 14:34] LABS: Prothrombin Time Whole Bld POC 32.3 sec (11.1-13.5); ~PT, ~INR - Anti Coag Clinic 2.7 (0.9-1.1)
== END 2024-04-27 14:39 | disposition home or self-care (01) ==
LOC: HO.ACS 14:23
PROVIDERS: PCP Internal Medicine; Visit Provider Internal Medicine
DX: Z79.01 Long term (current) use of anticoagulants (principal)

== ENCOUNTER → 2024-04-27 14:23 | Outpatient (BNVA) | payer MEDICARE, SELFPAY | PROVIDERS: PCP Internal Medicine; Visit Provider Internal Medicine | DX: D73.5 Infarction of spleen (principal); Z79.01 Long term (current) use of anticoagulants; Z51.81 Encounter for therapeutic drug level monitoring | CPT/HCPCS: 85610; 99211 ==

== ENCOUNTER 2024-06-01 14:15 | Outpatient (AMB) | payer MEDICARE, SELFPAY ==
[2024-06-01 14:22] LABS: Prothrombin Time Whole Bld POC 36.3 sec (11.1-13.5)
--- NOTE | 2024-06-01 14:26 | MHC.OFFVISCO ---
Intake Intake Visit Reasons: Anticoagulation Allergies No Known Allergies Allergy (Verified 06/01/24 14:17) Medication List - Last Reconciled 06/01/24 by Mariel Wood RN allopurinol 150 mg PO DAILY fenofibrate 54 mg PO DAILY gabapentin 100 mg PO DAILY PRN hydroxyurea 1,000 mg (2 x 500 mg) PO DAILY losartan 100 mg PO DAILY warfarin 1 mg See Protocol PO DAILY Nursing Note NO CP,SOB,DIET/MED CHANGES,FALLS OR SX OF BLEEDING. CONTINUR PRESENT DOSE AND FOLLOW-UP IN 4 WEEKS. GOOD UNDERSTANDING OF DOSING INSTR. 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
== END 2024-06-01 14:27 | disposition home or self-care (01) ==
LOC: HO.ACS 14:15
PROVIDERS: PCP Internal Medicine; Visit Provider Internal Medicine
DX: Z79.01 Long term (current) use of anticoagulants (principal)

== ENCOUNTER → 2024-06-01 14:15 | Outpatient (BNVA) | payer MEDICARE, SELFPAY | PROVIDERS: PCP Internal Medicine; Visit Provider Internal Medicine | DX: D73.5 Infarction of spleen (principal); Z79.01 Long term (current) use of anticoagulants; Z51.81 Encounter for therapeutic drug level monitoring | CPT/HCPCS: 85610; 99211 ==

== ENCOUNTER → 2024-06-30 13:37 | Outpatient (BNVA) | payer MEDICARE, SELFPAY | PROVIDERS: PCP Internal Medicine; Visit Provider Internal Medicine | DX: D73.5 Infarction of spleen (principal); Z79.01 Long term (current) use of anticoagulants; Z51.81 Encounter for therapeutic drug level monitoring | CPT/HCPCS: 85610; 99211 ==

== ENCOUNTER 2024-07-27 14:00 | Outpatient (AMB) | payer MEDICARE, SELFPAY ==
--- NOTE | 2024-07-27 14:07 | MHC.OFFVISCO ---
Intake Intake Visit Reasons: Anticoagulation Allergies No Known Allergies Allergy (Verified 07/27/24 14:00) Medication List - Last Reconciled 07/27/24 by Mary Santa RN allopurinol 150 mg PO DAILY fenofibrate 54 mg PO DAILY gabapentin 100 mg PO DAILY PRN hydroxyurea 500 mg PO DAILY losartan 100 mg PO DAILY warfarin 1 mg See Protocol PO DAILY Nursing Note INR: 2.5- in therapeutic range of 2-3 Medications and supplements reviewed- new med for BP x one month but does not know name, will call acs No changes in health, diet, medications, or supplements, Denies any signs and symptoms of bleeding or bruising or clotting. 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
--- OUTSIDE RECORDS SUMMARY | 2024-07-27 16:49 | XMS_ITS | Encounter Summary ---
Author Organization [facility] Address [address] [place] [address] Care Team Providers Care Bundle Collector Name Role Phone Rober Vaughan MD Primary Care Provider [phone] Encounter Details Date Type Department Care Team (Latest Contact Info) Description 07/26/2024 Lab Requisition [facility] - Main Lab [address] [facility] [place] [address] Rober Vaughan MD [address] [place] [address] Postprocedural hypothyroidism; Essential (primary) hypertension; Encounter for general adult medical examination with abnormal findings; Unspecified osteoarthritis, unspecified site Social History Tobacco Use Types Packs/Day Years Used Date Smoking Tobacco: Never Smokeless Tobacco: Never Alcohol Use Standard Drinks/Week Comments No 0 (1 standard drink = 0.6 oz pur e alcohol) Sex and Gender Information Value Date Recorded Sex Assigned at Not on file Legal Sex Male 11:32 PM EST Gender Identity Not on file Sexual Orientation Not on file documented as of this encounter Plan of Treatment Upcoming Encounters Date Type Department Care Team (Late st Contact Info) Description 10/12/2024 2:45 PM EDT Office Visit [facility] Hematology Oncology [address] [place] [address] Nia Browning MD [address] [place] [address] Scheduled Orders Name Type Priority Associated Diagnoses Orde r Schedule Thyroid stimulating hormone Lab Routine Postprocedural hypothyroidism Ordered: 07/26/2024 Comprehensive metabolic panel Lab Routine Essential (primary) hypertension Ordered: 07/26/2024 Complete blood count Lab Routine Encounter for general adult medical examination with abnormal findings Ordered: 07/26/2024 Sedimentation rate Lab Routine Unspecified osteoarthritis, unspecified site Ordered: 07/26/2024 documented as of this encounter Visit Diagnoses Diagnosis Postprocedural hypothyroidism Postsurgical hypothyroidism Essential (primary) hypertension Unspecified essential hypertension Encounter for general adult medical examination with abnormal findings Unspecified osteoarthritis, unspecified site documented in this encounter Care Teams Bundle Collector Relationship Specialty Start Date End Date Rober Vaughan MD [address] [place] [address] PCP - General Internal Medicine 12/14/12 documented as of this encounter
--- OUTSIDE RECORDS SUMMARY | 2024-07-27 16:51 | XMS_ITS | Clinical Summary ---
Author Organization [facility] Address [address] [place] [address] Phone Care Team Providers Care Manager Workers Compensation Name Role Phone Rober Vaughan MD Primary Care Provider [phone] Allergies No known active allergies Medications allopurinoL (ZYLOPRIM) 300 mg tablet Take 1 tablet (300 mg total) by mouth. Taking 1/2 a tablet daily Active fenofibrate (LOFIBRA) 54 mg tablet Take 54 mg by mouth daily. 03/17/2021 Active hydroxyurea (HYDREA) 500 mg capsule TAKE 1 CAPSULE DAILY, TAKE 2 CAPSULES THURSDAY AND Thursday06/24/2022 Active warfarin (COUMADIN) 1 mg tablet Take 1 mg by mouth See Admin Instructions. May cause heavy bleeding. Take at same time every day. Do not change dietary habits. 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 Portal vein thrombosis 01/04/2020 Other fatigue 01/04/2020 Stage 3 chronic kidney disease 01/04/2020 Encounters Date Type Department Care Team Description 07/26/2024 Lab Requisition [facility] - Main Lab [address] [facility] [place] [address] Rober Vaughan MD Postprocedural hypothyroidism; Essential (primary) hypertension; Encounter for general adult medical examination with abnormal findings; Unspecified osteoarthritis, unspecified site from Last 3 Months Social History Tobacco Use Types Packs/Day Years Used Date Smoking Tobacco: Never Smokeless Tobacco: Never Alcohol Use Standard Drinks/Week Comments No 0 (1 standard drink = 0.6 oz pur e alcohol) Sex and Gender Information Value Date Recorded Sex Assigned at Not on file Legal Sex Male 11:32 PM EST Gender Identity Not on file Sexual Orientation Not on file Obstetrics History Last Filed Vital Signs Vital Sign Reading Time Taken Comments Blood Pressure 144/70 04/13/2024 2:27 PM EST Pulse 62 04/13/2024 2:27 PM EST Temperature 36.5 ??C (97.7 ??F) 04/13/2024 2:27 PM ES T Respiratory Rate - - Oxygen Saturation 98% 04/13/2024 2:27 PM EST Inhaled Oxygen Concentration - - Weight 112 kg (247 lb 12.8 oz) 04/13/2024 2:27 P M EST Height 185.4 cm (6' 1 ) 04/13/2024 2:27 PM EST Body Mass Index 32.69 04/13/2024 2:27 PM EST Plan of Treatment Upcoming Encounters Date Type Department Care Team (Late st Contact Info) Description 10/12/2024 2:45 PM EDT Office Visit [facility] Hematology Oncology [address] [place] [address] Nia Browning MD [address] [place] [address] Health Maintenance Due Date Last Done Comments DTaP,Tdap,and Td Vaccines (1 - Tdap) 12/20/1970 Pneumococcal Vaccine: 50+ Years (1 of 2 - PCV) 12/20/1970 Zoster Vaccines (1 of 2) 12/20/1970 RSV Immunization Patients 60+ Years Old (1 - Risk 60-74 years 1-dose series) 2011 Cholesterol Screening (Lipid Panel) 05/02/2022 Colorectal Cancer Screening: Colonoscopy 05/02/2022 Depression Screening 05/02/2022 Falls Risk Assessment 05/02/2022 Hepatitis C Screening 05/02/2022 Medicare Annual Wellness Visit 05/02/2022 Social Influencers of Health Screening 05/02/2022 Hypertension/CHF/CAD Annual BMP Blood Test 07/05/2025 07/05/2024, 05/23/2024, 03/10/2024, Additional history exists COVID-19 Vaccine Completed 02/13/2024, , 03/08/2022, Additional history exists Influenza Vaccine Completed 02/13/2024, , 04/05/2022, Additional history exists HIB Vaccines Aged Out No longer eligi ble based on patient's age to complete this topic HPV Vaccines Aged Out No longer eligi ble based on patient's age to complete this topic Hepatitis A Vaccines Aged Out No long er eligible based on patient's age to complete this topic Hepatitis B Vaccines Aged Out No long er eligible based on patient's age to complete this topic IPV Vaccines Aged Out No longer eligi ble based on patient's age to complete this topic MMR Vaccines Aged Out No longer eligi ble based on patient's age to complete this topic Meningococcal ACWY Vaccine Aged Out N o longer eligible based on patient's age to complete this topic Meningococcal B Vacine Aged Out No lo nger eligible based on patient's age to complete this topic RSV Immunization Patients Under 20 months Aged Out No longer eligible based on patient's age to complete this topic Varicella Vaccines Aged Out No longer eligible based on patient's age to complete this topic Procedures Procedure Name Priority Date/Time Associated Diagnosis Comments PROSTATE SPECIFIC ANTIGEN DIAGNOSTIC Routine 07/05/2024 1:59 PM EST Benign localized prostatic hyperplasia with lower urinary tract symptoms (LUTS) BASIC METABOLIC PANEL Routine 07/05/2024 1:59 PM EST Benign localized prostatic hyperplasia with lower urinary tract symptoms (LUTS) CBC WITH AUTO DIFFERENTIAL Routine 05/23/2024 11:31 AM EST Thrombocythemia, essential (CMS/HCC) CBC AND DIFFERENTIAL Routine 05/23/2024 11:31 AM EST Thrombocythemia, essential (CMS/HCC) COMPREHENSIVE METABOLIC PANEL Routine 05/23/2024 11:31 AM EST Essential thrombocythemia (CMS/HCC) LACTATE DEHYDROGENASE Routine 05/23/2024 11:31 AM EST Essential thrombocythemia (CMS/HCC) from Last 3 Months Results * (ABNORMAL) Prostate specific antigen diagnostic (07/05/2024 1:59 PM EST) PSA 5.25(H) 0.00 - 4.00 ng/mL LAB CHEMISTRY METHOD 07/05/2024 4:04 PM EST [facility] Blood Venous blood specimen / Unknown Venipuncture / Unknown 07/05/2024 1:59 PM EST 07/05/2024 3:24 PM EST [facility] LAB - 07/05/2024 4:04 PM EST The Siemens Advia Centaur Chemiluminescent Immunoassay is used. Results obtained with different assay methods or kits cannot be used interchangeably. Results cannot be interpreted as absolute evidence of the presence or absence of malignant disease. Wyatt TOURE LAB BLOOD ORDERABLES Final Result [facility] [address] [place] [address], * (ABNORMAL) Basic metabolic panel (07/05/2024 1:59 PM EST) Sodium 137 133 - 145 mmol/L LAB CHEMISTRY METHOD 07/05/2024 3:52 PM [facility] Potassium 4.6 3.5 - 5.5 mmol/L LAB CHEMISTRY METHOD 07/05/2024 3:52 PM [facility] Chloride 108 96 - 110 mmol/L LAB CHEMISTRY METHOD 07/05/2024 3:52 PM [facility] CO2 25 21 - 32 mmol/L LAB CHEMISTRY METHOD 07/05/2024 3:52 PM [facility] Anion Gap 4 3 - 11 LAB CHEMISTRY METHOD 07/05/2024 3:52 PM [facility] Glucose 77 70 - 100 mg/dL LAB CHEMISTRY METHOD 07/05/2024 3:52 PM [facility] BUN 25 5 - 25 mg/dL LAB CHEMISTRY METHOD 07/05/2024 3:52 PM [facility] Creatinine 1.99(H) 0.70 - 1.30 mg/dL LAB CHEMISTRY METHOD 07/05/2024 3:52 PM [facility] eGFR 35(L) >=60 mL/min/1. 73m2 LAB CHEMISTRY METHOD 07/05/2024 3:52 PM [facility] Comment:Calculation based on the??Chronic Kidney Disease Epidemiology Collaboration (CKD-EPI) equation refit??without adjustment for race. BUN/Creatinine Ratio 12.6 LAB CHEMISTRY METHOD 07/05/2024 3:52 PM [facility] Calcium 9.3 8.5 - 10.5 mg/dL LAB CHEMISTRY METHOD 07/05/2024 3:52 PM [facility] Blood Venous blood specimen / Unknown Venipuncture / Unknown 07/05/2024 1:59 PM EST 07/05/2024 3:24 PM EST Wyatt TOURE LAB BLOOD ORDERABLES Final Result [facility] [address] [place] [address], * (ABNORMAL) CBC auto differential (05/23/2024 11:31 AM EST) WBC 6.7 4.8 - 10.8 K/mcL LAB HEMETOLOGY METHOD 05/23/2024 1:14 PM [facility] RBC 5.20 4.50 - 5.50 M/mcL LAB HEMETOLOGY METHOD 05/23/2024 1:14 PM [facility] Hemoglobin 14.7 13.5 - 17.5 g/dL LAB HEMETOLOGY METHOD 05/23/2024 1:14 PM [facility] Hematocrit 48.1 42.0 - 54.0 % LAB HEMETOLOGY METHOD 05/23/2024 1:14 PM [facility] MCV 92.0 79.0 - 98.0 FL LAB HEMETOLOGY METHOD 05/23/2024 1:14 PM [facility] MCH 28.1 27.0 - 32.0 pcg LAB HEMETOLOGY METHOD 05/23/2024 1:14 PM [facility] MCHC 30.6(L) 32.0 - 37.0 g/dL LAB HEMETOLOGY METHOD 05/23/2024 1:14 PM [facility] RDW 14.6 11.0 - 15.0 % LAB HEMETOLOGY METHOD 05/23/2024 1:14 PM [facility] Platelets 460(H) 130 - 400 K/mcL LAB HEMETOLOGY METHOD 05/23/2024 1:14 PM [facility] MPV 9.3 7.0 - 11.0 FL LAB HEMETOLOGY METHOD 05/23/2024 1:14 PM [facility] NRBC 0.0 <1.0 % LAB HEMETOLOGY METHOD 05/23/2024 1:14 PM [facility] NRBC Absolute 0.00 <0.10 K/mcL LAB HEMETOLOGY METHOD 05/23/2024 1:14 PM [facility] Neutrophils Relative 77.0 % LAB HEMETOLOGY METHOD 05/23/2024 1:14 PM [facility] Lymphocytes Relative 14.6 % LAB HEMETOLOGY METHOD 05/23/2024 1:14 PM [facility] Monocytes Relative 4.3 % LAB HEMETOLOGY METHOD 05/23/2024 1:14 PM [facility] Eosinophils Relative 2.2 % LAB HEMETOLOGY METHOD 05/23/2024 1:14 PM EST [facility] Basophils Relative 1.5 % LAB HEMETOLOGY METHOD 05/23/2024 1:14 PM [facility] Immature Granulocytes Relative 0.4 % LAB HEMETOLOGY METHOD 05/23/2024 1:14 PM [facility] Neutrophils Absolute 5.17 1.50 - 7.00 K/mcL LAB HEMETOLOGY METHOD 05/23/2024 1:14 PM EST [facility] Lymphocytes Absolute 0.98(L) 1.00 - 5.00 K/mcL LAB HEMETOLOGY METHOD 05/23/2024 1:14 PM EST [facility] Monocytes Absolute 0.29 0.20 - 1.00 K/mcL LAB HEMETOLOGY METHOD 05/23/2024 1:14 PM [facility] Eosinophils Absolute 0.15 0.00 - 0.50 K/mcL LAB HEMETOLOGY METHOD 05/23/2024 1:14 PM EST [facility] Basophils Absolute 0.10 0.00 - 0.20 K/mcL LAB HEMETOLOGY METHOD 05/23/2024 1:14 PM [facility] Immature Granulocytes Absolute 0.03 0.00 - 0.03 K/mcL LAB HEMETOLOGY METHOD 05/23/2024 1:14 PM EST [facility] Blood Venous blood specimen / Unknown Venipuncture / Unknown 05/23/2024 11:31 AM EST 05/23/2024 12:53 PM EST us Nia Browning MD LAB BLOOD ORDERABLE S Final Result [facility] [address] [place] [address], * Lactate dehydrogenase (05/23/2024 11:31 AM EST) LDH 171 120 - 246 unit/L LAB CHEMISTRY METHOD 05/23/2024 3:01 PM [facility] Blood Venous blood specimen / Unknown Venipuncture / Unknown 05/23/2024 11:31 AM EST 05/23/2024 12:53 PM EST Nia Browning MD LAB BLOOD ORDERABLE S Final Result [facility] [address] [place] [address], [place] [phone] * (ABNORMAL) Comprehensive metabolic panel (05/23/2024 11:31 AM EST) [facility] Sodium 139 133 - 145 mmol/L LAB CHEMISTRY METHOD 05/23/2024 3:09 PM [facility] Potassium 4.4 3.5 - 5.5 mmol/L LAB CHEMISTRY METHOD 05/23/2024 3:09 PM [facility] Chloride 109 96 - 110 mmol/L LAB CHEMISTRY METHOD 05/23/2024 3:09 PM [facility] CO2 24 21 - 32 mmol/L LAB CHEMISTRY METHOD 05/23/2024 3:09 PM [facility] Anion Gap 6 3 - 11 LAB CHEMISTRY METHOD 05/23/2024 3:09 PM [facility] Glucose 113(H) 70 - 100 mg/dL LAB CHEMISTRY METHOD 05/23/2024 3:09 PM [facility] BUN 26(H) 5 - 25 mg/dL LAB CHEMISTRY METHOD 05/23/2024 3:09 PM [facility] Creatinine 1.96(H) 0.70 - 1.30 mg/dL LAB CHEMISTRY METHOD 05/23/2024 3:09 PM [facility] eGFR 36(L) >=60 mL/min/1. 73m2 LAB CHEMISTRY METHOD 05/23/2024 3:09 PM [facility] Comment:Calculation based on the??Chronic Kidney Disease Epidemiology Collaboration (CKD-EPI) equation refit??without adjustment for race. BUN/Creatinine Ratio 13.3 LAB CHEMISTRY METHOD 05/23/2024 3:09 PM [facility] Calcium 9.4 8.5 - 10.5 mg/dL LAB CHEMISTRY METHOD 05/23/2024 3:09 PM [facility] AST (SGOT) 18 10 - 42 unit/L LAB CHEMISTRY METHOD 05/23/2024 3:09 PM [facility] ALT (SGPT) 21 10 - 60 unit/L LAB CHEMISTRY METHOD 05/23/2024 3:09 PM [facility] Alkaline Phosphatase 53 42 - 121 unit/L LAB CHEMISTRY METHOD 05/23/2024 3:09 PM [facility] Total Protein 6.5 6.0 - 8.0 g/dL LAB CHEMISTRY METHOD 05/23/2024 3:09 PM [facility] Albumin 4.0 3.2 - 5.0 g/dL LAB CHEMISTRY METHOD 05/23/2024 3:09 PM [facility] Total Bilirubin 1.2 0.0 - 1.4 mg/dL LAB CHEMISTRY METHOD 05/23/2024 3:09 PM [facility] Blood Venous blood specimen / Unknown Venipuncture / Unknown 05/23/2024 11:31 AM EST 05/23/2024 12:53 PM EST us Fordramyessenia Browning MD LAB BLOOD ORDERABLE S Final Result [facility] [address] [place] [address], from Last 3 Months Insurance [employer] - [place] MEDICARE ADVANTAGE Care Teams Manager Workers Compensation Relationship Specialty Start Date End Date Rober Vaughan MD [address] [place] [address] PCP - General Internal Medicine 12/14/12
--- OUTSIDE RECORDS SUMMARY | 2024-07-27 16:51 | XMS_ITS | Clinical Summary ---
Author Organization [facility] Address [address] [place] [phone] Phone Care Team Providers Care Teletype Telegrapher Name Role Phone Rober Vaughan MD Primary Care Provider Unavail able Allergies No known active allergies Medications fenofibrate (TRICOR) 54 MG tablet Take 54 mg by mouth 1 (one) time each day 03/17/2021 Active losartan (COZAAR) 50 MG tablet Take 50 mg by mouth 1 (one) time each day Active hydroxyurea (HYDREA) 500 MG capsule Take 500 mg by mouth 1 (one) time each day 01/02/2020 Active warfarin (COUMADIN) 1 MG tablet Take 1 mg by mouth 1 (one) time each day Active sildenafil (VIAGRA) 100 MG tablet Take 100 mg by mouth 30 (thirty) minutes prior to sexual activity 02/14/2020 Active allopurinol (ZYLOPRIM) 300 MG tablet Take 300 mg by mouth 1 (one) time each day Active Cholecalciferol (Vitamin D) 25 MCG (1000 UT) tablet Take by mouth Active Active Problems Problem Noted Date Diagnosed Date Cyst of kidney 10/19/2023 Hypercalcemia 10/19/2023 Stage 3a chronic kidney disease 01/20/2022 Thrombosis of mesenteric vein 01/04/2020 Essential thrombocytosis 11/15/2019 Other obesity 08/22/2015 Benign prostatic hyperplasia 05/03/2015 Hypertension 05/03/2015 Resolved Problems Problem Noted Date Diagnosed Date Resolved Date Genetic mutation 01/24/2020 01/20/2022 Hypertensive chronic kidney disease with stage 1 through stage 4 chronic kidney disease, or unspecified chronic kidney disease 08/16/2019 10/21/2022 Frequency of micturition 05/03/2015 Family History Medical History Relation Comments Coronary artery disease Brother Hypertension Brother Cancer Mother Coronary artery disease Mother Hypertension Mother Relation Status Comments Brother Mother breast cancer Social History Tobacco Use Types Packs/Day Years Used Date Smoking Tobacco: Never Smokeless Tobacco: Never Tobacco Cessation:Counseling Given: Not Answered Alcohol Use Standard Drinks/Week Comments Yes 0 (1 standard drink = 0.6 oz pur e alcohol) Rarely Sex and Gender Information Value Date Recorded Sex Assigned at Not on file Legal Sex Male 8:27 AM EDT Gender Identity Not on file Sexual Orientation Not on file Last Filed Vital Signs Vital Sign Reading Time Taken Comments Blood Pressure 172/86 04/07/2024 7:46 AM EST Pulse 60 04/07/2024 7:46 AM EST Temperature - - Respiratory Rate - - Oxygen Saturation 97% 04/07/2024 7:46 AM EST Inhaled Oxygen Concentration - - Weight 112 kg (247 lb) 04/07/2024 7:46 AM EST Height 185.4 cm (6' 1 ) 10/21/2023 7:40 AM EDT Body Mass Index 32.59 10/21/2023 7:40 AM EDT Plan of Treatment Upcoming Encounters Date Type Department Care Team (Late st Contact Info) Description 10/06/2024 8:00 AM EDT Office Visit [facility] [address] [phone] Napoleon Mooney MD [address] [place] [phone] Health Maintenance Due Date Last Done Comments Pneumococcal Vaccine: 65+ Ye ars (1 of 2 - PCV) 12/20/1957 Colorectal Cancer Screening: Annual FOBT 12/20/2000 Colorectal Cancer Screening: Colonoscopy 12/20/2000 Colorectal Cancer Screening: Sigmoidoscopy 12/20/2000 Influenza Vaccine (#1) 2024 Hepatitis B Vaccine Aged Out No longe r eligible based on patient's age to complete this topic Insurance [facility] Care Teams Teletype Telegrapher Relationship Specialty Start Date End Date Rober Vaughan MD [address] [place] [phone] PCP - General Internal Medicine 10/21/23
--- OUTSIDE RECORDS SUMMARY | 2024-07-27 16:52 | XMS_ITS | Clinical Summary ---
Author Organization [facility] Address [address] [place] [address] Care Team Providers Care Med Admin Name Role Phone Rober Vaughan MD Primary Care Provider [phone] Allergies No known active allergies Medications Medication Sig Dispensed Refills Start Date End Date Status losartan (COZAAR) tablet 50 mg Take 50 mg by mouth daily. 0 Active warfarin (COUMADIN) 1 MG tablet Take 1 mg by mouth daily. 0 Active allopurinol (ZYLOPRIM) 300 MG tablet Take 300 mg by mouth daily. 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 Other fatigue 01/04/2020 Portal vein thrombosis 01/04/2020 Social History Tobacco Use Types Packs/Day Years Used Date Smoking Tobacco: Never Smokeless Tobacco: Never Alcohol Use Standard Drinks/Week Comments No 0 (1 standard drink = 0.6 oz pur e alcohol) Sex and Gender Information Value Date Recorded Sex Assigned at Not on file Gender Identity Not on file Sexual Orientation Not on file Job Start Date Occupation Industry Not on file Not on file Not on file Last Filed Vital Signs Vital Sign Reading Time Taken Comments Blood Pressure 144/71 10/14/2023 2:28 PM EDT Pulse 63 10/14/2023 2:28 PM EDT Temperature 36.5 ??C (97.7 ??F) 06/17/2023 2:42 PM ES T Respiratory Rate - - Oxygen Saturation 98% 10/14/2023 2:28 PM EDT Inhaled Oxygen Concentration - - Weight 111.8 kg (246 lb 6.4 oz) 10/14/2023 2:28 PM EDT Height 185.4 cm (6' 1 ) 06/17/2023 2:42 PM EST Body Mass Index 32.51 06/17/2023 2:42 PM EST Plan of Treatment Health Maintenance Due Date Last Done Comments Hepatitis C Screening 1950 COVID-19 Vaccine (#1) 12/20/1956 Pneumococcal Vaccine (1 of 2 - PCV) 12/20/1957 Depression Screening 1963 BMI Counseling 12/20/1969 Preventative Health Evaluation 12/20/1969 DTap / Tdap / Td (1 - Tdap) 12/20/1970 Shingrix-Zoster Vaccine (1 of 2) 12/20/1970 Colon Cancer Screening (Colonoscopy) 12/20/1996 Fall Risk Assessment 12/20/2016 Influenza Vaccine (#1) 2024 RSV Adult > 60+ Yrs or Pregn ant (1 - 1-dose 75+ series) 12/20/2026 Hepatitis B Vaccines Aged Out No long er eligible based on patient's age to complete this topic RSV Ped < 20 months Aged Out No longe r eligible based on patient's age to complete this topic Care Teams Med Admin Relationship Specialty Start Date End Date Rober Vaughan MD PCP - General Internal Medicine 06/11/16
[2024-07-28 08:26] LABS: Prothrombin Time Whole Bld POC 29.8 sec (11.1-13.5); ~PT, ~INR - Anti Coag Clinic 2.5 (0.9-1.1)
== END 2024-07-27 14:24 | disposition home or self-care (01) ==
LOC: HO.ACS 14:00
PROVIDERS: PCP Internal Medicine; Visit Provider Internal Medicine
DX: Z79.01 Long term (current) use of anticoagulants (principal)

== ENCOUNTER → 2024-07-27 14:00 | Outpatient (BNVA) | payer MEDICARE, SELFPAY | PROVIDERS: PCP Internal Medicine; Visit Provider Internal Medicine | DX: D73.5 Infarction of spleen (principal); Z79.01 Long term (current) use of anticoagulants; Z51.81 Encounter for therapeutic drug level monitoring | CPT/HCPCS: 85610; 99211 ==

== ENCOUNTER 2024-08-24 14:12 | Outpatient (AMB) | payer MEDICARE, SELFPAY ==
[2024-08-24 14:20] LABS: Prothrombin Time Whole Bld POC 28.2 sec (11.1-13.5); ~PT, ~INR - Anti Coag Clinic 2.4 (0.9-1.1)
--- NOTE | 2024-08-24 14:33 | MHC.OFFVISCO ---
Intake Intake Visit Reasons: Anticoagulation Allergies No Known Allergies Allergy (Verified 08/24/24 14:19) Medication List - Last Reconciled 08/24/24 by Mariel Wood RN allopurinol 150 mg PO DAILY fenofibrate 54 mg PO DAILY gabapentin 100 mg PO DAILY PRN hydroxyurea 500 mg PO DAILY losartan 100 mg PO DAILY warfarin 1 mg See Protocol PO DAILY Nursing Note NO CP,SOB,DIET/MED CHANGES,FALLS OR SX OF BLEEDING. CONTINUE PRESENT DOSE AND FOLLOW-UP IN 4 WEEKS. GOOD UNDERSTANDING OF DOSING INSTR. Coding Level of Care Code Est Patient Level 1 Diagnoses Current use of anticoagulant therapy Z79.01 Assessment & Plan Assessment & Plan (1) Current use of anticoagulant therapy: Code(s): Z79.01 - half-way (current) use of anticoagulants Category: Medical
--- OUTSIDE RECORDS SUMMARY | 2024-08-24 16:57 | XMS_ITS | Encounter Summary ---
Author Organization [facility] Address [address] [place] [phone] Care Team Providers Care Child Welfare Consultant Name Role Phone Rober Vaughan MD Primary Care Provider [phone] Encounter Details Date Type Department Care Team (Latest Contact Info) Description 07/26/2024 Lab Requisition [facility] - Main Lab 299 [facility] [place] [address] Rober Vaughan MD [address] [place] [address] Postprocedural hypothyroidism; Essential (primary) hypertension; Encounter for [...] Description 10/12/2024 2:45 PM EDT Office Visit [facility] Hematology Oncology [address] [place] [address] Nia Browning MD [address] [place] [address] documented as of this encounter Procedures Procedure Name Priority Date/Time Associated Diagnosis Comments SEDIMENTATION RATE Routine 07/28/2024 3: 11 PM EST Unspecified osteoarthritis, unspecified site COMPLETE BLOOD COUNT Routine 07/28/2024 3:11 PM EST Encounter for general adult medical examination with abnormal findings THYROID STIMULATING HORMONE Routine 07/28/2024 3:11 PM EST Postprocedural hypothyroidism COMPREHENSIVE METABOLIC PANEL Routine 07/28/2024 3:11 PM EST Essential (primary) hypertension documented in this encounter Results * Sedimentation rate (07/28/2024 3:11 PM EST) Sed Rate 9 0 - 20 mm/hr LAB HEMETOLOGY METHOD 07/28/2024 4:08 PM EST [facility] Blood Venous blood specimen / Unknown Venipuncture / Unknown 07/28/2024 3:11 PM EST 07/28/2024 3:27 PM EST us Rober Vaughan MD LAB BLOOD ORDERABLES Final Res ult [facility] [address] [place] [address], [place] [phone] * (ABNORMAL) Complete blood count (07/28/2024 3:11 PM EST) WBC 7.3 4.8 - 10.8 K/mcL LAB HEMETOLOGY METHOD 07/28/2024 3:57 PM EST [facility] RBC 5.00 4.50 - 5.50 M/mcL LAB HEMETOLOGY METHOD 07/28/2024 3:57 PM EST [facility] Hemoglobin 15.0 13.5 - 17.5 g/dL LAB HEMETOLOGY METHOD 07/28/2024 3:57 PM EST [facility] Hematocrit 47.3 42.0 - 54.0 % LAB HEMETOLOGY METHOD 07/28/2024 3:57 PM EST [facility] MCV 94.2 79.0 - 98.0 FL LAB HEMETOLOGY METHOD 07/28/2024 3:57 PM EST [facility] MCH 29.9 27.0 - 32.0 pcg LAB HEMETOLOGY METHOD 07/28/2024 3:57 PM EST [facility] MCHC 31.7(L) 32.0 - 37.0 g/dL LAB HEMETOLOGY METHOD 07/28/2024 3:57 PM EST [facility] RDW 15.3(H) 11.0 - 15.0 % LAB HEMETOLOGY METHOD 07/28/2024 3:57 PM [facility] Platelets 410(H) 130 - 400 K/mcL LAB HEMETOLOGY METHOD 07/28/2024 3:57 PM EST [facility] MPV 9.4 7.0 - 11.0 FL LAB HEMETOLOGY METHOD 07/28/2024 3:57 PM EST [facility] NRBC 0.0 <1.0 % LAB HEMETOLOGY METHOD 07/28/2024 3:57 PM EST [facility] NRBC Absolute 0.00 <0.10 K/mcL LAB HEMETOLOGY METHOD 07/28/2024 3:57 PM EST [facility] Blood Venous blood specimen / Unknown Venipuncture / Unknown 07/28/2024 3:11 PM EST 07/28/2024 3:27 PM EST us Rober Vaughan MD LAB BLOOD ORDERABLES Final Res ult [facility] [address] [place] [address], [place] [phone] * (ABNORMAL) Comprehensive metabolic panel (07/28/2024 3:11 PM EST) [facility] Sodium 137 133 - 145 mmol/L LAB CHEMISTRY METHOD 07/28/2024 4:24 PM [facility] Potassium 4.5 3.5 - 5.5 mmol/L LAB CHEMISTRY METHOD 07/28/2024 4:24 PM [facility] Chloride 107 96 - 110 mmol/L LAB CHEMISTRY METHOD 07/28/2024 4:24 PM [facility] CO2 25 21 - 32 mmol/L LAB CHEMISTRY METHOD 07/28/2024 4:24 PM [facility] Anion Gap 5 3 - 11 LAB CHEMISTRY METHOD 07/28/2024 4:24 PM [facility] Glucose 90 70 - 100 mg/dL LAB CHEMISTRY METHOD 07/28/2024 4:24 PM [facility] BUN 31(H) 5 - 25 mg/dL LAB CHEMISTRY METHOD 07/28/2024 4:24 PM [facility] Creatinine 2.20(H) 0.70 - 1.30 mg/dL LAB CHEMISTRY METHOD 07/28/2024 4:24 PM [facility] eGFR 31(L) >=60 mL/min/1. 73m2 LAB CHEMISTRY METHOD 07/28/2024 4:24 PM [facility] Comment:Calculation based on the??Chronic Kidney Disease Epidemiology Collaboration (CKD-EPI) equation refit??without adjustment for race. BUN/Creatinine Ratio 14.1 LAB CHEMISTRY METHOD 07/28/2024 4:24 PM [facility] Calcium 9.4 8.5 - 10.5 mg/dL LAB CHEMISTRY METHOD 07/28/2024 4:24 PM [facility] AST (SGOT) 18 10 - 42 unit/L LAB CHEMISTRY METHOD 07/28/2024 4:24 PM [facility] ALT (SGPT) 19 10 - 60 unit/L LAB CHEMISTRY METHOD 07/28/2024 4:24 PM [facility] Alkaline Phosphatase 52 42 - 121 unit/L LAB CHEMISTRY METHOD 07/28/2024 4:24 PM EST [facility] Total Protein 6.7 6.0 - 8.0 g/dL LAB CHEMISTRY METHOD 07/28/2024 4:24 PM [facility] Albumin 4.1 3.2 - 5.0 g/dL LAB CHEMISTRY METHOD 07/28/2024 4:24 PM [facility] Total Bilirubin 1.0 0.0 - 1.4 mg/dL LAB CHEMISTRY METHOD 07/28/2024 4:24 PM [facility] Blood Venous blood specimen / Unknown Venipuncture / Unknown 07/28/2024 3:11 PM EST 07/28/2024 3:27 PM EST Rober Vaughan MD LAB BLOOD ORDERABLES Final Res ult Performing Organization Address City/[facility]/ZIP Co de Phone Number [facility] [address] [place] [address], [place] [phone] * Thyroid stimulating hormone (07/28/2024 3:11 PM EST) TSH 2.25 0.40 - 4.00 mcIU/mL LAB CHEMISTRY METHOD 07/28/2024 4:28 PM [facility] Blood Venous blood specimen / Unknown Venipuncture / Unknown 07/28/2024 3:11 PM EST 07/28/2024 3:27 PM EST Rober Vaughan MD LAB BLOOD ORDERABLES Final Res ult [facility] [address] [place] [address], [place] [phone] documented in this encounter Visit Diagnoses Diagnosis Postprocedural hypothyroidism Postsurgical hypothyroidism Essential (primary) hypertension Unspecified essential hypertension Encounter for general adult medical examination with abnormal findings Unspecified osteoarthritis, unspecified site documented in this encounter Care Teams Child Welfare Consultant Relationship Specialty Start Date End Date Rober Vaughan MD [address] [place] [address] PCP - General Internal Medicine 12/14/12 documented as of this encounter
--- OUTSIDE RECORDS SUMMARY | 2024-08-24 16:59 | XMS_ITS | Clinical Summary ---
Author Organization [facility] Address [address] [place] [address] Phone Care Team Providers Care Rn Plastic Surgery Name Role Phone Rober Vaughan MD Primary Care Provider [phone] Allergies No known active allergies Medications allopurinoL [...] Department Care Team Description 07/26/2024 Lab Requisition [facility] - Main Lab 299 [facility] [place] [address] Rober Vaughan MD Postprocedural hypothyroidism; [...] Description 10/12/2024 2:45 PM EDT Office Visit [facility] Hematology Oncology [address] [place] [address] Nia Browning MD [address] [place] [phone] Health Maintenance Due Date Last Done Comments DTaP,Tdap,and Td Vaccines (1 - Tdap) 12/20/1970 Pneumococcal Vaccine: 50+ Years (1 of 2 - PCV) 12/20/1970 Zoster Vaccines (1 of 2) 12/20/1970 RSV Immunization Adult Patients (1 - Risk 60-74 years 1-dose series) 2011 Cholesterol Screening (Lipid Panel) 05/02/2022 Colorectal Cancer Screening: Colonoscopy 05/02/2022 Depression Screening 05/02/2022 Falls Risk Assessment 05/02/2022 Hepatitis C Screening 05/02/2022 Medicare Annual Wellness Visit 05/02/2022 Social Influencers of Health Screening 05/02/2022 Hypertension/CHF/CAD Annual BMP Blood Test 07/28/2025 07/28/2024, 07/05/2024, 05/23/2024, Additional history exists COVID-19 Vaccine Completed 02/13/2024, [...] general adult medical examination with abnormal findings COMPREHENSIVE METABOLIC PANEL Routine 07/28/2024 3:11 PM EST Essential (primary) hypertension THYROID STIMULATING HORMONE Routine 07/28/2024 3:11 PM EST Postprocedural hypothyroidism PROSTATE SPECIFIC ANTIGEN DIAGNOSTIC Routine 07/05/2024 1:59 PM EST Benign localized prostatic hyperplasia with lower urinary tract symptoms (LUTS) BASIC METABOLIC PANEL Routine 07/05/2024 1:59 PM EST Benign localized prostatic hyperplasia with lower urinary tract symptoms (LUTS) from Last 3 Months Results * Sedimentation rate (07/28/2024 3:11 PM EST) Pathologist [facility] Sed Rate 9 0 - 20 mm/hr LAB HEMETOLOGY METHOD 07/28/2024 4:08 PM EST [facility] Blood Venous blood specimen / Unknown Venipuncture / Unknown 07/28/2024 3:11 PM EST 07/28/2024 3:27 PM EST us Rober Vaughan MD LAB BLOOD ORDERABLES Final Res ult [facility] [address] [place] [address], [place] [phone] * (ABNORMAL) Complete blood count (07/28/2024 3:11 PM EST) [facility] WBC 7.3 4.8 - 10.8 K/mcL LAB HEMETOLOGY METHOD 07/28/2024 3:57 PM [facility] RBC 5.00 4.50 - 5.50 M/mcL LAB HEMETOLOGY METHOD 07/28/2024 3:57 PM [facility] Hemoglobin 15.0 13.5 - 17.5 g/dL LAB HEMETOLOGY METHOD 07/28/2024 3:57 PM [facility] Hematocrit 47.3 42.0 - 54.0 % LAB HEMETOLOGY METHOD 07/28/2024 3:57 PM [facility] MCV 94.2 79.0 - 98.0 FL LAB HEMETOLOGY METHOD 07/28/2024 3:57 PM [facility] MCH 29.9 27.0 - 32.0 pcg LAB HEMETOLOGY METHOD 07/28/2024 3:57 PM [facility] MCHC 31.7(L) 32.0 - 37.0 g/dL LAB HEMETOLOGY METHOD 07/28/2024 3:57 PM EST [facility] RDW 15.3(H) 11.0 - 15.0 % LAB HEMETOLOGY METHOD 07/28/2024 3:57 PM [facility] Platelets 410(H) 130 - 400 K/mcL LAB HEMETOLOGY METHOD 07/28/2024 3:57 PM EST [facility] MPV 9.4 7.0 - 11.0 FL LAB HEMETOLOGY METHOD 07/28/2024 3:57 PM EST [facility] NRBC 0.0 <1.0 % LAB HEMETOLOGY METHOD 07/28/2024 3:57 PM EST [facility] NRBC Absolute 0.00 <0.10 K/mcL LAB HEMETOLOGY METHOD 07/28/2024 3:57 PM EST [facility] Blood Venous blood specimen / Unknown Venipuncture / Unknown 07/28/2024 3:11 PM EST 07/28/2024 3:27 PM EST Rober Vaughan MD LAB BLOOD ORDERABLES Final Res ult [facility] [address] [place] [address], * Thyroid stimulating hormone (07/28/2024 3:11 PM EST) TSH 2.25 0.40 - 4.00 mcIU/mL LAB CHEMISTRY METHOD 07/28/2024 4:28 PM EST [facility] Blood Venous blood specimen / Unknown Venipuncture / Unknown 07/28/2024 3:11 PM EST 07/28/2024 3:27 PM EST Rober Vaughan MD LAB BLOOD ORDERABLES Final Res ult [facility] [address] [place] [address], * (ABNORMAL) Comprehensive metabolic panel (07/28/2024 3:11 PM EST) Sodium 137 133 - 145 mmol/L LAB CHEMISTRY METHOD 07/28/2024 4:24 PM EST [facility] Potassium 4.5 3.5 - 5.5 mmol/L LAB CHEMISTRY METHOD 07/28/2024 4:24 PM [facility] Chloride 107 96 - 110 mmol/L LAB CHEMISTRY METHOD 07/28/2024 4:24 PM [facility] CO2 25 21 - 32 mmol/L LAB CHEMISTRY METHOD 07/28/2024 4:24 PM [facility] Anion Gap 5 3 - 11 LAB CHEMISTRY METHOD 07/28/2024 4:24 PM [facility] Glucose 90 70 - 100 mg/dL LAB CHEMISTRY METHOD 07/28/2024 4:24 PM [facility] BUN 31(H) 5 - 25 mg/dL LAB CHEMISTRY METHOD 07/28/2024 4:24 PM [facility] Creatinine 2.20(H) 0.70 - 1.30 mg/dL LAB CHEMISTRY METHOD 07/28/2024 4:24 PM [facility] eGFR 31(L) >=60 mL/min/1. 73m2 LAB CHEMISTRY METHOD 07/28/2024 4:24 PM [facility] Comment:Calculation based on the??Chronic Kidney Disease Epidemiology Collaboration (CKD-EPI) equation refit??without adjustment for race. BUN/Creatinine Ratio 14.1 LAB CHEMISTRY METHOD 07/28/2024 4:24 PM [facility] Calcium 9.4 8.5 - 10.5 mg/dL LAB CHEMISTRY METHOD 07/28/2024 4:24 PM [facility] AST (SGOT) 18 10 - 42 unit/L LAB CHEMISTRY METHOD 07/28/2024 4:24 PM EST [facility] ALT (SGPT) 19 10 - 60 unit/L LAB CHEMISTRY METHOD 07/28/2024 4:24 PM EST [facility] Alkaline Phosphatase 52 42 - 121 unit/L LAB CHEMISTRY METHOD 07/28/2024 4:24 PM EST [facility] Total Protein 6.7 6.0 - 8.0 g/dL LAB CHEMISTRY METHOD 07/28/2024 4:24 PM EST [facility] Albumin 4.1 3.2 - 5.0 g/dL LAB CHEMISTRY METHOD 07/28/2024 4:24 PM EST [facility] Total Bilirubin 1.0 0.0 - 1.4 mg/dL LAB CHEMISTRY METHOD 07/28/2024 4:24 PM EST [facility] Blood Venous blood specimen / Unknown Venipuncture / Unknown 07/28/2024 3:11 PM EST 07/28/2024 3:27 PM EST us Rober Vaughan MD LAB BLOOD ORDERABLES Final Res ult [facility] [address] [place] [address], * (ABNORMAL) Prostate specific antigen diagnostic (07/05/2024 1:59 PM EST) PSA 5.25(H) 0.00 - 4.00 ng/mL LAB CHEMISTRY METHOD 07/05/2024 4:04 PM EST [facility] Blood Venous blood specimen / Unknown Venipuncture / Unknown 07/05/2024 1:59 PM EST 07/05/2024 3:24 PM EST [facility] - 07/05/2024 4:04 PM EST The Siemens Advia Centaur Chemiluminescent Immunoassay is used. Results obtained with different assay methods or kits cannot be used interchangeably. Results cannot be interpreted as absolute evidence of the presence or absence of malignant disease. us Wyatt TOURE LAB BLOOD ORDERABLES Final Result [facility] [address] [place] [address], [place] [phone] * (ABNORMAL) Basic metabolic panel (07/05/2024 1:59 PM EST) Pathologist [facility] Sodium 137 133 - 145 mmol/L LAB CHEMISTRY METHOD 07/05/2024 3:52 PM EST [facility] Potassium 4.6 3.5 - 5.5 mmol/L LAB CHEMISTRY METHOD 07/05/2024 3:52 PM [facility] Chloride 108 96 - 110 mmol/L LAB CHEMISTRY METHOD 07/05/2024 3:52 PM [facility] CO2 25 21 - 32 mmol/L LAB CHEMISTRY METHOD 07/05/2024 3:52 PM [facility] Anion Gap 4 3 - 11 LAB CHEMISTRY METHOD 07/05/2024 3:52 PM [facility] Glucose 77 70 - 100 mg/dL LAB CHEMISTRY METHOD 07/05/2024 3:52 PM [facility] BUN 25 5 - 25 mg/dL LAB CHEMISTRY METHOD 07/05/2024 3:52 PM [facility] Creatinine 1.99(H) 0.70 - 1.30 mg/dL LAB CHEMISTRY METHOD 07/05/2024 3:52 PM [facility] eGFR 35(L) >=60 mL/min/1. 73m2 LAB CHEMISTRY METHOD 07/05/2024 3:52 PM [facility] Comment:Calculation based on the??Chronic Kidney Disease Epidemiology Collaboration (CKD-EPI) equation refit??without adjustment for race. BUN/Creatinine Ratio 12.6 LAB CHEMISTRY METHOD 07/05/2024 3:52 PM [facility] Calcium 9.3 8.5 - 10.5 mg/dL LAB CHEMISTRY METHOD 07/05/2024 3:52 PM EST [facility] Blood Venous blood specimen / Unknown Venipuncture / Unknown 07/05/2024 1:59 PM EST 07/05/2024 3:24 PM EST Wyatt TOURE LAB BLOOD ORDERABLES Final Result [facility] [address] [place] [address], from Last 3 Months Insurance [employer] - [place] MEDICARE ADVANTAGE Care Teams Rn Plastic Surgery Relationship Specialty Start Date End Date Rober Vaughan MD [address] [place] [address] PCP - General Internal Medicine 12/14/12
--- OUTSIDE RECORDS SUMMARY | 2024-08-24 16:59 | XMS_ITS | Clinical Summary ---
Author Organization [facility] Address [address] [place] [phone] Phone Care Team Providers Care Museum Exhibit Designer Name Role Phone Rober Vaughan MD Primary [...] Office Visit [facility] [address] [phone] Napoleon Mooney MD [address] [place] [phone] Health Maintenance Due Date Last Done Comments Pneumococcal Vaccine: 65+ Ye ars (1 of 2 - PCV) 12/20/1956 Colorectal Cancer Screening: Annual FOBT 12/20/2000 Colorectal Cancer Screening: Colonoscopy 12/20/2000 Colorectal Cancer Screening: Sigmoidoscopy 12/20/2000 Influenza Vaccine (Season Ended) 2025 Hepatitis B Vaccine Aged Out No longe r eligible based on patient's age to complete this topic Insurance [facility] Care Teams Museum Exhibit Designer Relationship Specialty Start Date End Date Rober Vaughan MD [address] [place] [phone] PCP - General Internal Medicine 10/21/23
--- OUTSIDE RECORDS SUMMARY | 2024-08-24 17:00 | XMS_ITS | Clinical Summary ---
Author Organization [facility] Address [address] [place] [address] Care Team Providers Care Principal Web Developer Name Role Phone Rober Vaughan MD Primary Care Provider [phone] Allergies No known active allergies Medications Medication [...] age to complete this topic Care Teams Principal Web Developer Relationship Specialty Start Date End Date Rober Vaughan MD PCP - General Internal Medicine 06/11/16
== END 2024-08-24 14:36 | disposition home or self-care (01) ==
LOC: HO.ACS 14:12
PROVIDERS: PCP Internal Medicine; Visit Provider Internal Medicine Medical Oncology
DX: Z79.01 Long term (current) use of anticoagulants (principal)

== ENCOUNTER → 2024-08-24 14:12 | Outpatient (BNVA) | payer MEDICARE, SELFPAY | PROVIDERS: PCP Internal Medicine; Visit Provider Internal Medicine Medical Oncology | DX: D73.5 Infarction of spleen (principal); Z79.01 Long term (current) use of anticoagulants; Z51.81 Encounter for therapeutic drug level monitoring | CPT/HCPCS: 85610; 99211 ==

== ENCOUNTER 2024-09-21 14:14 | Outpatient (AMB) | payer MEDICARE, SELFPAY ==
[2024-09-21 14:22] LABS: Prothrombin Time Whole Bld POC 27.3 sec (11.1-13.5); ~PT, ~INR - Anti Coag Clinic 2.3 (0.9-1.1)
--- NOTE | 2024-09-21 14:27 | MHC.OFFVISCO ---
Intake Intake Visit Reasons: Anticoagulation Allergies No Known Allergies Allergy (Verified 09/21/24 14:16) Medication List - Last Reconciled 09/21/24 by Mariel Wood RN allopurinol 150 mg PO DAILY fenofibrate 54 mg PO DAILY gabapentin 100 mg PO DAILY PRN hydroxyurea 500 mg PO DAILY losartan 100 mg PO DAILY warfarin 1 mg See Protocol PO DAILY Nursing Note NO CP,SOB,DIET/MED CHANGES,FALLS OR SX OF BLEEDING. CONTINUE PRESENT DOSE AND FOLLOW-UP IN 4 WEEKS. GOOD UNDERSTANDING OF DOSING INSTR. Coding Level of Care Code Est Patient Level 1 Diagnoses Current use of anticoagulant therapy Z79.01 Assessment & Plan Assessment & Plan (1) Current use of anticoagulant therapy: Code(s): Z79.01 - [facility] (current) use of anticoagulants Category: Medical
--- OUTSIDE RECORDS SUMMARY | 2024-09-21 15:27 | XMS_ITS | Encounter Summary ---
Author Organization [facility] Address [address] [place] [address] Care Team Providers Care Neon Glass Bender Name Role Phone Rober Vaughan MD Primary Care Provider [phone] Encounter Details Date Type Department Care Team (Latest Contact Info) Description 07/26/2024 Lab Requisition [facility] - Main Lab 299 [facility] [place] [address] Rboer Vaughan MD [address] [place] [address] Postprocedural hypothyroidism; Essential (primary) hypertension; Encounter for [...] Description 10/12/2024 2:45 PM EDT Office Visit [facility] Hematology Oncology [address] [place] [address] Nia Browning MD [address] [place] [address] documented as of this encounter [...] LAB HEMETOLOGY METHOD 07/28/2024 4:08 PM EST [facility] Blood Venous blood specimen / Unknown Venipuncture / Unknown 07/28/2024 3:11 PM EST 07/28/2024 3:27 PM EST us Rober Vaughan MD LAB BLOOD ORDERABLES Final Res ult [facility] [address] [place] [address], [place] [phone] * (ABNORMAL) Complete blood count (07/28/2024 3:11 PM EST) WBC 7.3 4.8 - 10.8 K/mcL LAB HEMETOLOGY METHOD 07/28/2024 3:57 PM EST [facility] RBC 5.00 4.50 - 5.50 M/mcL LAB HEMETOLOGY METHOD 07/28/2024 3:57 PM EST [facility] Hemoglobin 15.0 13.5 - 17.5 g/dL LAB HEMETOLOGY METHOD 07/28/2024 3:57 PM EST [facility] Hematocrit 47.3 42.0 - 54.0 % LAB HEMETOLOGY METHOD 07/28/2024 3:57 PM EST [facility] MCV 94.2 79.0 - 98.0 FL LAB HEMETOLOGY METHOD 07/28/2024 3:57 PM EST [facility] MCH 29.9 27.0 - 32.0 pcg LAB HEMETOLOGY METHOD 07/28/2024 3:57 PM EST [facility] MCHC 31.7(L) 32.0 - 37.0 g/dL LAB HEMETOLOGY METHOD 07/28/2024 3:57 PM EST [facility] RDW 15.3(H) 11.0 - 15.0 % LAB HEMETOLOGY METHOD 07/28/2024 3:57 PM [facility] Platelets 410(H) 130 - 400 K/mcL LAB HEMETOLOGY METHOD 07/28/2024 3:57 PM EST [facility] MPV 9.4 7.0 - 11.0 FL LAB HEMETOLOGY METHOD 07/28/2024 3:57 PM EST [facility] NRBC 0.0 <1.0 % LAB HEMETOLOGY METHOD 07/28/2024 3:57 PM EST [facility] NRBC Absolute 0.00 <0.10 K/mcL LAB HEMETOLOGY METHOD 07/28/2024 3:57 PM EST [facility] Blood Venous blood specimen / Unknown Venipuncture / Unknown 07/28/2024 3:11 PM EST 07/28/2024 3:27 PM EST us Rober Vaughan MD LAB BLOOD ORDERABLES Final Res ult [facility] [address] [place] [address], [place] [phone] * (ABNORMAL) Comprehensive metabolic panel (07/28/2024 3:11 PM EST) [facility] Sodium 137 133 - 145 mmol/L LAB CHEMISTRY METHOD 07/28/2024 4:24 PM [facility] Potassium 4.5 3.5 - 5.5 mmol/L LAB CHEMISTRY METHOD 07/28/2024 4:24 PM [facility] Chloride 107 96 - 110 mmol/L LAB CHEMISTRY METHOD 07/28/2024 4:24 PM [facility] CO2 25 21 - 32 mmol/L LAB CHEMISTRY METHOD 07/28/2024 4:24 PM [facility] Anion Gap 5 3 - 11 LAB CHEMISTRY METHOD 07/28/2024 4:24 PM [facility] Glucose 90 70 - 100 mg/dL LAB CHEMISTRY METHOD 07/28/2024 4:24 PM [facility] BUN 31(H) 5 - 25 mg/dL LAB CHEMISTRY METHOD 07/28/2024 4:24 PM [facility] Creatinine 2.20(H) 0.70 - 1.30 mg/dL LAB CHEMISTRY METHOD 07/28/2024 4:24 PM [facility] eGFR 31(L) >=60 mL/min/1. 73m2 LAB CHEMISTRY METHOD 07/28/2024 4:24 PM [facility] Comment:Calculation based on the??Chronic Kidney Disease Epidemiology Collaboration (CKD-EPI) equation refit??without adjustment for race. BUN/Creatinine Ratio 14.1 LAB CHEMISTRY METHOD 07/28/2024 4:24 PM [facility] Calcium 9.4 8.5 - 10.5 mg/dL LAB CHEMISTRY METHOD 07/28/2024 4:24 PM [facility] AST (SGOT) 18 10 - 42 unit/L LAB CHEMISTRY METHOD 07/28/2024 4:24 PM [facility] ALT (SGPT) 19 10 - 60 unit/L LAB CHEMISTRY METHOD 07/28/2024 4:24 PM [facility] Alkaline Phosphatase 52 42 - 121 unit/L LAB CHEMISTRY METHOD 07/28/2024 4:24 PM EST [facility] Total Protein 6.7 6.0 - 8.0 g/dL LAB CHEMISTRY METHOD 07/28/2024 4:24 PM [facility] Albumin 4.1 3.2 - 5.0 g/dL LAB CHEMISTRY METHOD 07/28/2024 4:24 PM [facility] Total Bilirubin 1.0 0.0 - 1.4 mg/dL LAB CHEMISTRY METHOD 07/28/2024 4:24 PM [facility] Blood Venous blood specimen / Unknown Venipuncture / Unknown 07/28/2024 3:11 PM EST 07/28/2024 3:27 PM EST Rober Vaughan MD LAB BLOOD ORDERABLES Final Res ult Performing Organization Address City/[facility]/ZIP Co de Phone Number [facility] [address] [place] [address], [place] [phone] * Thyroid stimulating hormone (07/28/2024 3:11 PM EST) TSH 2.25 0.40 - 4.00 mcIU/mL LAB CHEMISTRY METHOD 07/28/2024 4:28 PM [facility] Blood Venous blood specimen / Unknown Venipuncture / Unknown 07/28/2024 3:11 PM EST 07/28/2024 3:27 PM EST Rober Vaughan MD LAB BLOOD ORDERABLES Final Res ult [facility] [address] [place] [address], [place] [phone] documented in this encounter Visit Diagnoses Diagnosis Postprocedural hypothyroidism Postsurgical hypothyroidism Essential (primary) hypertension Unspecified essential hypertension Encounter for general adult medical examination with abnormal findings Unspecified osteoarthritis, unspecified site documented in this encounter Care Teams Neon Glass Bender Relationship Specialty Start Date End Date Rober Vaughan MD PCP - General Internal Medicine 12/14/12 documented as of this encounter
--- OUTSIDE RECORDS SUMMARY | 2024-09-21 15:30 | XMS_ITS | Clinical Summary ---
Author Organization [facility] Address [address] [place] [phone] Phone Care Team Providers Care Machine Grainer Name Role Phone Rober Vaughan MD Primary [...] Upcoming Encounters Date Type Department Care Team (Latest Contact Info) Description 10/05/2024 Orders Only [facility] [address] [phone] Napoleon Mooney MD [address] [place] [phone] Stage 3a chronic kidney disease (HCC); Hypertension; Hypercalcemia; Essential thrombocytosis (HCC); Benign prostatic hyperplasia 10/06/2024 8:00 AM EDT Office Visit [facility] [address] [phone] Napoleon Mooney MD [address] [place] [phone] Health Maintenance Due Date Last Done Comments Pneumococcal Vaccine: 50+ Ye ars (1 of 2 - PCV) 12/20/1970 Colorectal Cancer Screening: Annual FOBT 12/20/2000 Colorectal Cancer Screening: Colonoscopy 12/20/2000 Colorectal Cancer Screening: Sigmoidoscopy 12/20/2000 Influenza Vaccine (Season Ended) 2025 Hepatitis B Vaccine Aged Out No longe r eligible based on patient's age to complete this topic Insurance Care Teams Machine Grainer Relationship Specialty Start Date End Date Rober Vaughan MD [address] [place] [phone] PCP - General Internal Medicine 10/21/23
--- OUTSIDE RECORDS SUMMARY | 2024-09-21 15:30 | XMS_ITS | Clinical Summary ---
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 Portal vein thrombosis 01/04/2020 Other fatigue 01/04/2020 Stage 3 chronic kidney disease (CMS/HCC V24, CMS /HCC V28) 01/04/2020 Encounters Date Type Department Care Team Description 07/26/2024 Lab Requisition [facility] - Main Lab [address] [facility] [place] [address] Rober Vaughan MD Postprocedural hypothyroidism; [...] Description 10/12/2024 2:45 PM EDT Office Visit [facility] Hematology Oncology [address] [place] [address] Nia Browning MD [address] [place] [phone] Health Maintenance Due Date Last Done Comments [...] 05/02/2022 Social Influencers of Health Screening 05/02/2022 COVID-19 Vaccine (7 - Pfizer risk season) 2024 02/13/2024, 04/13/2023, 03/08/2022, Additional history exists Hypertension/CHF/CAD Annual BMP Blood Test 09/06/2025 09/06/2024, 07/28/2024, 07/05/2024, Additional history exists Influenza Vaccine Completed 02/13/2024, [...] age to complete this topic Meningococcal B Vaccine Aged Out No l onger eligible based on patient's age to complete this topic RSV Immunization Patients Under 20 months Aged Out No longer eligible based on patient's age to complete this topic Varicella Vaccines Aged Out No longer eligible based on patient's age to complete this topic Procedures Procedure Name Priority Date/Time Associated Diagnosis Comments CBC WITH AUTO DIFFERENTIAL Routine 09/06/2024 1:42 PM EDT Essential thrombocythemia (CMS/HCC V24, CMS/HCC V28) CBC AND DIFFERENTIAL Routine 09/06/2024 1:42 PM EDT Essential thrombocythemia (CMS/HCC V24, CMS/HCC V28) COMPREHENSIVE METABOLIC PANEL Routine 09/06/2024 1:42 PM EDT Essential thrombocythemia (CMS/HCC V24, CMS/HCC V28) LACTATE DEHYDROGENASE Routine 09/06/2024 1:42 PM EDT Essential thrombocythemia (CMS/HCC V24, CMS/HCC V28) SEDIMENTATION RATE Routine 07/28/2024 3: 11 PM [...] (LUTS) from Last 3 Months Results * (ABNORMAL) CBC auto differential (09/06/2024 1:42 PM EDT) WBC 8.0 4.8 - 10.8 K/mcL LAB HEMETOLOGY METHOD 09/06/2024 4:46 PM EDT [facility] RBC 5.00 4.50 - 5.50 M/mcL LAB HEMETOLOGY METHOD 09/06/2024 4:46 PM EDT [facility] Hemoglobin 15.4 13.5 - 17.5 g/dL LAB HEMETOLOGY METHOD 09/06/2024 4:46 PM EDT [facility] Hematocrit 49.6 42.0 - 54.0 % LAB HEMETOLOGY METHOD 09/06/2024 4:46 PM EDT [facility] MCV 98.8(H) 79.0 - 98.0 FL LAB HEMETOLOGY METHOD 09/06/2024 4:46 PM EDT [facility] MCH 30.7 27.0 - 32.0 pcg LAB HEMETOLOGY METHOD 09/06/2024 4:46 PM EDT [facility] LAB MCHC 31.0(L) 32.0 - 37.0 g/dL LAB HEMETOLOGY METHOD 09/06/2024 4:46 PM [facility] RDW 14.8 11.0 - 15.0 % LAB HEMETOLOGY METHOD 09/06/2024 4:46 PM EDT [facility] Platelets 438(H) 130 - 400 K/mcL LAB HEMETOLOGY METHOD 09/06/2024 4:46 PM [facility] MPV 9.2 7.0 - 11.0 FL LAB HEMETOLOGY METHOD 09/06/2024 4:46 PM [facility] NRBC 0.0 <1.0 % LAB HEMETOLOGY METHOD 09/06/2024 4:46 PM [facility] NRBC Absolute 0.00 <0.10 K/mcL LAB HEMETOLOGY METHOD 09/06/2024 4:46 PM [facility] Neutrophils Relative 77.2 % LAB HEMETOLOGY METHOD 09/06/2024 4:46 PM [facility] Lymphocytes Relative 11.7 % LAB HEMETOLOGY METHOD 09/06/2024 4:46 PM [facility] Monocytes Relative 7.5 % LAB HEMETOLOGY METHOD 09/06/2024 4:46 PM [facility] Eosinophils Relative 1.9 % LAB HEMETOLOGY METHOD 09/06/2024 4:46 PM [facility] Basophils Relative 1.3 % LAB HEMETOLOGY METHOD 09/06/2024 4:46 PM [facility] Immature Granulocytes Relative 0.4 % LAB HEMETOLOGY METHOD 09/06/2024 4:46 PM EDT [facility] Neutrophils Absolute 6.17 1.50 - 7.00 K/mcL LAB HEMETOLOGY METHOD 09/06/2024 4:46 PM EDT [facility] Lymphocytes Absolute 0.93(L) 1.00 - 5.00 K/mcL LAB HEMETOLOGY METHOD 09/06/2024 4:46 PM EDT [facility] Monocytes Absolute 0.60 0.20 - 1.00 K/mcL LAB HEMETOLOGY METHOD 09/06/2024 4:46 PM EDT [facility] Eosinophils Absolute 0.15 0.00 - 0.50 K/[facility] LAB HEMETOLOGY METHOD 09/06/2024 4:46 PM EDT [facility] Basophils Absolute 0.10 0.00 - 0.20 K/mcL LAB HEMETOLOGY METHOD 09/06/2024 4:46 PM EDT [facility] Immature Granulocytes Absolute 0.03 0.00 - 0.03 K/mcL LAB HEMETOLOGY METHOD 09/06/2024 4:46 PM EDT [facility] Blood Venous blood specimen / Unknown Venipuncture / Unknown 09/06/2024 1:42 PM EDT 09/06/2024 4:30 PM EDT Nia Browning MD LAB BLOOD ORDERABLE S Final Result [facility] [address] [place] [address], * Lactate dehydrogenase (09/06/2024 1:42 PM EDT) LDH 186 120 - 246 unit/L LAB CHEMISTRY METHOD 09/06/2024 5:08 PM EDT [facility] Blood Venous blood specimen / Unknown Venipuncture / Unknown 09/06/2024 1:42 PM EDT 09/06/2024 4:30 PM EDT us Nia Browning MD LAB BLOOD ORDERABLE S Final Result [facility] [address] [place] [address], [place] [phone] * (ABNORMAL) Comprehensive metabolic panel (09/06/2024 1:42 PM EDT) Only the most recent of2 resultswithin the time period is included. Pathologist [facility] Sodium 138 133 - 145 mmol/L LAB CHEMISTRY METHOD 09/06[facility]2024 5[facility] Potassium 4.4 3.5 - 5.5 mmol/L LAB CHEMISTRY METHOD 09/06/2024 5:08 PM [facility] Chloride 109 96 - 110 mmol/L LAB CHEMISTRY METHOD 09/06/2024 5:08 PM [facility] CO2 24 21 - 32 mmol/L LAB CHEMISTRY METHOD 09/06/2024 5:08 PM [facility] Anion Gap 5 3 - 11 LAB CHEMISTRY METHOD 09/06/2024 5:08 PM [facility] Glucose 85 70 - 100 mg/dL LAB CHEMISTRY METHOD 09/06/2024 5:08 PM [facility] BUN 25 5 - 25 mg/dL LAB CHEMISTRY METHOD 09/06/2024 5:08 PM [facility] Creatinine 2.12(H) 0.70 - 1.30 mg/dL LAB CHEMISTRY METHOD 09/06/2024 5:08 PM [facility] eGFR 32(L) >=60 mL/min/1. 73m2 LAB CHEMISTRY METHOD 09/06/2024 5:08 PM [facility] Comment:Calculation based on the??Chronic Kidney Disease Epidemiology Collaboration (CKD-EPI) equation refit??without adjustment for race. BUN/Creatinine Ratio 11.8 LAB CHEMISTRY METHOD 09/06/2024 5:08 PM EDT [facility] Calcium 9.2 8.5 - 10.5 mg/dL LAB CHEMISTRY METHOD 09/06/2024 5:08 PM [facility] AST (SGOT) 23 10 - 42 unit/L LAB CHEMISTRY METHOD 09/06/2024 5:08 PM [facility] ALT (SGPT) 22 10 - 60 unit/L LAB CHEMISTRY METHOD 09/06/2024 5:08 PM EDT [facility] Alkaline Phosphatase 52 42 - 121 unit/L LAB CHEMISTRY METHOD 09/06/2024 5:08 PM T [facility] Total Protein 6.8 6.0 - 8.0 g/dL LAB CHEMISTRY METHOD 09/06/2024 5:08 PM [facility] Albumin 4.1 3.2 - 5.0 g/dL LAB CHEMISTRY METHOD 09/06/2024 5:08 PM [facility] Total Bilirubin 1.2 0.0 - 1.4 mg/dL LAB CHEMISTRY METHOD 09/06/2024 5:08 PM T [facility] Blood Venous blood specimen / Unknown Venipuncture / Unknown 09/06/2024 1:42 PM EDT 09/06/2024 4:30 PM EDT us Subramony Nam SOTO LAB BLOOD ORDERABLE S Final Result [facility] [address] [place] [address], * Sedimentation rate (07/28/2024 3:11 PM EST) Sed Rate 9 0 - 20 mm/hr LAB HEMETOLOGY METHOD 07/28/2024 4:08 PM EST [facility] Blood Venous blood specimen / Unknown Venipuncture / Unknown 07/28/2024 3:11 PM EST 07/28/2024 3:27 PM EST us Rober Vaughan MD LAB BLOOD ORDERABLES Final Res ult [facility] [address] [place] [address], [place] [phone] * (ABNORMAL) Complete blood count (07/28/2024 3:11 PM EST) [facility] WBC 7.3 4.8 - 10.8 K/mcL LAB HEMETOLOGY METHOD 07/28/2024 3:57 PM EST [facility] RBC 5.00 4.50 - [...] 07/28/2024 3:57 PM [facility] RDW 15.3(H) 11.0 - 15.0 % LAB HEMETOLOGY METHOD 07/28/2024 3:57 PM [facility] Platelets 410(H) 130 - 400 K/mcL LAB HEMETOLOGY METHOD 07/28/2024 3:57 PM [facility] MPV 9.4 7.0 - 11.0 FL LAB HEMETOLOGY METHOD 07/28/2024 3:57 PM EST [facility] NRBC 0.0 <1.0 % LAB HEMETOLOGY METHOD 07/28/2024 3:57 PM EST [facility] NRBC Absolute 0.00 <0.10 K/mcL LAB HEMETOLOGY METHOD 07/28/2024 3:57 PM EST [facility] Blood Venous blood specimen / Unknown Venipuncture / Unknown 07/28/2024 3:11 PM EST 07/28/2024 3:27 PM EST Rober Vaughan MD LAB BLOOD ORDERABLES Final Res ult Performing Organization Address [facility]/ZIP Co de Phone Number [facility] [address] [place] [address], [place] [phone] * Thyroid stimulating hormone (07/28/2024 3:11 PM EST) TSH 2.25 0.40 - 4.00 mcIU/mL LAB CHEMISTRY METHOD 07/28/2024 4:28 PM EST [facility] Blood Venous blood specimen / Unknown Venipuncture / Unknown 07/28/2024 3:11 PM EST 07/28/2024 3:27 PM EST Rober Vaughan MD LAB BLOOD ORDERABLES Final Res ult [facility] [address] [place] [address], [place] [phone] * (ABNORMAL) Prostate specific antigen diagnostic (07/05/2024 1:59 PM EST) PSA 5.25(H) 0.00 - 4.00 ng/mL LAB CHEMISTRY METHOD 07/05/2024 4:04 PM EST [facility] Blood Venous blood specimen / Unknown Venipuncture / Unknown 07/05/2024 1:59 PM EST 07/05/2024 3:24 PM EST [facility] - 07/05/2024 4:04 PM EST The Siemens Advia Centaur Chemiluminescent Immunoassay is used. Results obtained with different assay methods or kits cannot be used interchangeably. Results cannot be interpreted as absolute evidence of the presence or absence of malignant disease. Wyatt TOURE LAB BLOOD ORDERABLES Final Result [facility] [address] [place] [address], * (ABNORMAL) Basic metabolic panel (07/05/2024 1:59 PM EST) Sodium 137 133 - 145 mmol/L LAB CHEMISTRY METHOD 07/05/2024 3:52 PM [facility] Potassium 4.6 3.5 - [...] 73m2 LAB CHEMISTRY METHOD 07/05/2024 3:52 PM EST [facility] Comment:Calculation based on the??Chronic Kidney Disease Epidemiology Collaboration (CKD-EPI) equation refit??without adjustment for race. BUN/Creatinine Ratio 12.6 LAB CHEMISTRY METHOD 07/05/2024 3:52 PM EST [facility] Calcium 9.3 8.5 - 10.5 mg/dL LAB CHEMISTRY METHOD 07/05/2024 3:52 PM EST [facility] Blood Venous blood specimen / Unknown Venipuncture / Unknown 07/05/2024 1:59 PM EST 07/05/2024 3:24 PM EST Wyatt TOURE LAB BLOOD ORDERABLES Final Result [facility] [address] [place] [address], from Last 3 Months Insurance [employer] - [place] MEDICARE ADVANTAGE Care Teams Front Clerk Relationship Specialty Start Date End Date Rober Vaughan MD PCP - General Internal Medicine 12/14/12
--- OUTSIDE RECORDS SUMMARY | 2024-09-21 15:33 | XMS_ITS | Clinical Summary ---
Author Organization [facility] Address [address] [place] [address] Care Team Providers Care Provider Network Analyst Name Role Phone Rober Vaughan MD Primary Care Provider [phone] Allergies No known active allergies Medications Medication [...] age to complete this topic Care Teams Provider Network Analyst Relationship Specialty Start Date End Date Rober Vaughan MD PCP - General Internal Medicine 06/11/16
== END 2024-09-21 14:29 | disposition home or self-care (01) ==
LOC: HO.ACS 14:14
PROVIDERS: PCP Internal Medicine; Visit Provider Internal Medicine Medical Oncology
DX: Z79.01 Long term (current) use of anticoagulants (principal)

== ENCOUNTER → 2024-09-21 14:14 | Outpatient (BNVA) | payer MEDICARE, SELFPAY | PROVIDERS: PCP Internal Medicine; Visit Provider Internal Medicine Medical Oncology | DX: D73.5 Infarction of spleen (principal); Z79.01 Long term (current) use of anticoagulants; Z51.81 Encounter for therapeutic drug level monitoring | CPT/HCPCS: 85610; 99211 ==

== ENCOUNTER 2024-10-19 14:16 | Outpatient (AMB) | payer MEDICARE, SELFPAY ==
[2024-10-19 14:29] LABS: Prothrombin Time Whole Bld POC 31.4 sec (11.1-13.5); ~PT, ~INR - Anti Coag Clinic 2.6 (0.9-1.1)
--- NOTE | 2024-10-19 14:32 | MHC.OFFVISCO ---
Intake Intake Visit Reasons: Anticoagulation Allergies No Known Allergies Allergy (Verified 10/19/24 14:25) Medication List - Last Reconciled 10/19/24 by Mariel Wood RN allopurinol 150 mg PO DAILY fenofibrate 54 mg PO DAILY gabapentin 100 mg PO DAILY PRN hydroxyurea 500 mg PO DAILY losartan 100 mg PO DAILY warfarin 1 mg See Protocol PO DAILY Nursing Note NO CP,SOB,DIET/MED CHANGES,FALLS OR SX OF BLEEDING. CONTINUE PRESENT DOSE AND FOLLOW-UP IN 4 WEEKS GOOD UNDERSTANDING OF DOSING INSTR. Coding Level of Care Code Est Patient Level 1 Diagnoses Current use of anticoagulant therapy Z79.01 Assessment & Plan Assessment & Plan (1) Current use of anticoagulant therapy: Code(s): Z79.01 - penitentiary (current) use of anticoagulants Category: Medical
--- OUTSIDE RECORDS SUMMARY | 2024-10-19 15:11 | XMS_ITS | Encounter Summary ---
Author Organization [facility] Address [address] [place] [address] Care Team Providers Care Polo Coach Name Role Phone Rober Vaughan MD Primary Care Provider [phone] Encounter Details Date Type Department Care Team (Latest Contact Info) Description 07/26/2024 Lab Requisition [facility] - Main Lab [address] [facility] [place] [address] Rober Vaughan MD [address] [place] [address] Postprocedural hypothyroidism; Essential (primary) hypertension; Encounter for [...] Care Team (Late st Contact Info) Description 05/03/2025 2:30 PM EST Office Visit [facility] Hematology Oncology [address] [place] [address] Nia Browning MD [address] [place] [address] documented as of this encounter [...] LAB HEMETOLOGY METHOD 07/28/2024 4:08 PM EST [facility] Blood Venous blood specimen / Unknown Venipuncture / Unknown 07/28/2024 3:11 PM EST 07/28/2024 3:27 PM EST us Rober Vaughan MD LAB BLOOD ORDERABLES Final Res ult [facility] [address] [place] [address], [place] [phone] * (ABNORMAL) Complete blood count (07/28/2024 3:11 PM EST) WBC 7.3 4.8 - 10.8 K/mcL LAB HEMETOLOGY METHOD 07/28/2024 3:57 PM EST [facility] RBC 5.00 4.50 - 5.50 M/mcL LAB HEMETOLOGY METHOD 07/28/2024 3:57 PM EST [facility] Hemoglobin 15.0 13.5 - 17.5 g/dL LAB HEMETOLOGY METHOD 07/28/2024 3:57 PM EST [facility] Hematocrit 47.3 42.0 - 54.0 % LAB HEMETOLOGY METHOD 07/28/2024 3:57 PM EST [facility] MCV 94.2 79.0 - 98.0 FL LAB HEMETOLOGY METHOD 07/28/2024 3:57 PM EST [facility] MCH 29.9 27.0 - 32.0 pcg LAB HEMETOLOGY METHOD 07/28/2024 3:57 PM EST [facility] MCHC 31.7(L) 32.0 - 37.0 g/dL LAB HEMETOLOGY METHOD 07/28/2024 3:57 PM EST [facility] RDW 15.3(H) 11.0 - 15.0 % LAB HEMETOLOGY METHOD 07/28/2024 3:57 PM [facility] Platelets 410(H) 130 - 400 K/mcL LAB HEMETOLOGY METHOD 07/28/2024 3:57 PM EST [facility] MPV 9.4 7.0 - 11.0 FL LAB HEMETOLOGY METHOD 07/28/2024 3:57 PM EST [facility] NRBC 0.0 <1.0 % LAB HEMETOLOGY METHOD 07/28/2024 3:57 PM EST [facility] NRBC Absolute 0.00 <0.10 K/mcL LAB HEMETOLOGY METHOD 07/28/2024 3:57 PM EST [facility] Blood Venous blood specimen / Unknown Venipuncture / Unknown 07/28/2024 3:11 PM EST 07/28/2024 3:27 PM EST us Rober Vaughan MD LAB BLOOD ORDERABLES Final Res ult [facility] [address] [place] [address], [place] [phone] * (ABNORMAL) Comprehensive metabolic panel (07/28/2024 3:11 [...] LAB CHEMISTRY METHOD 07/28/2024 4:24 PM EST [facility] Total Protein 6.7 6.0 - [...] ORDERABLES Final Res ult Performing Organization Address City/[facility]/ZIP Co de Phone Number [facility] [address] [place] [address], [place] [phone] * Thyroid stimulating hormone (07/28/2024 3:11 PM EST) TSH 2.25 0.40 - 4.00 mcIU/mL LAB CHEMISTRY METHOD 07/28/2024 4:28 PM [facility] Blood Venous blood specimen / Unknown Venipuncture / Unknown 07/28/2024 3:11 PM EST 07/28/2024 3:27 PM EST Rober Vaughan MD LAB BLOOD ORDERABLES Final Res ult [facility] [address] [place] [address], [place] [phone] documented in this encounter Visit Diagnoses Diagnosis Postprocedural hypothyroidism Postsurgical hypothyroidism Essential (primary) hypertension Unspecified essential hypertension Encounter for general adult medical examination with abnormal findings Unspecified osteoarthritis, unspecified site documented in this encounter Care Teams Polo Coach Relationship Specialty Start Date End Date Rober Vaughan MD [address] [place] [address] PCP - General Internal Medicine 09/26/24 documented as of this encounter
== END 2024-10-19 14:45 | disposition home or self-care (01) ==
LOC: HO.ACS 14:16
PROVIDERS: PCP Internal Medicine; Visit Provider Internal Medicine Medical Oncology
DX: Z79.01 Long term (current) use of anticoagulants (principal)

== ENCOUNTER → 2024-10-19 14:16 | Outpatient (BNVA) | payer MEDICARE, SELFPAY | PROVIDERS: PCP Internal Medicine; Visit Provider Internal Medicine Medical Oncology | DX: D73.5 Infarction of spleen (principal); Z79.01 Long term (current) use of anticoagulants; Z51.81 Encounter for therapeutic drug level monitoring | CPT/HCPCS: 85610; 99211 ==

== ENCOUNTER 2024-11-16 14:22 | Outpatient (AMB) | payer MEDICARE, SELFPAY ==
[2024-11-16 14:30] LABS: Prothrombin Time Whole Bld POC 32.2 sec (11.1-13.5); ~PT, ~INR - Anti Coag Clinic 2.7 (0.9-1.1)
--- NOTE | 2024-11-16 14:36 | MHC.OFFVISCO ---
Intake Intake Visit Reasons: Anticoagulation Allergies No Known Allergies Allergy (Verified 11/16/24 14:23) Medication List - Last Reconciled 11/16/24 by Mariel Wood RN allopurinol 150 mg PO DAILY fenofibrate 54 mg PO DAILY gabapentin 100 mg PO DAILY PRN hydroxyurea 500 mg PO DAILY losartan 100 mg PO DAILY warfarin 1 mg See Protocol PO DAILY Nursing Note NO CP,SOB,DIET/MED CHANGES,FALLS OR SX OF BLEEDING. CONTINUE PRESENT DOSING AND FOLLOW-UP IN 4 WEEKS. GOOD UNDERSTANDING OF DOSING INSTR. 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
--- OUTSIDE RECORDS SUMMARY | 2024-11-16 17:06 | XMS_ITS | Encounter Summary ---
Author Organization [facility] Address [address] [place] [address] Care Team Providers Care Collection Administrator Name Role Phone Rober Vaughan MD Primary Care Provider [phone] Encounter Details Date Type Department Care Team (Latest Contact Info) Description 07/26/2024 Lab Requisition [facility] - Main Lab [address] [facility] [address] Rober Vaughan MD [address] [place] [address] Postprocedural hypothyroidism; Essential (primary) hypertension; Encounter for [...] Description 05/03/2025 2:30 PM EST Office Visit [facility] Hematology Oncology [address] [place] [address] Nai Browning MD [address] [place] [address] documented as of this encounter [...] Final Res ult [facility] [address] [place] [address], [place] [phone] * (ABNORMAL) Complete blood count (07/28/2024 3:11 [...] % LAB HEMETOLOGY METHOD 07/28/2024 3:57 PM [facility] Platelets 410(H) 130 - 400 K/mcL [...] Final Res ult [facility] [address] [place] [address], [place] [phone] * (ABNORMAL) Comprehensive metabolic panel (07/28/2024 3:11 PM EST) Sodium 137 133 - 145 mmol/L LAB CHEMISTRY METHOD 07/28/2024 4:24 PM [facility] Potassium 4.5 3.5 - 5.5 mmol/L LAB CHEMISTRY METHOD 07/28/2024 4:24 PM [facility] Chloride 107 96 - 110 mmol/L LAB CHEMISTRY METHOD 07/28/2024 4:24 PM [facility] CO2 25 21 - 32 mmol/L LAB CHEMISTRY METHOD 07/28/2024 4:24 PM [facility] Anion Gap 5 3 - 11 LAB CHEMISTRY METHOD 07/28/2024 4:24 PM [facility] Glucose 90 70 - 100 mg/dL LAB CHEMISTRY METHOD 07/28/2024 4:24 PM [facility] BUN 31(H) 5 - 25 mg/dL LAB CHEMISTRY METHOD 07/28/2024 4:24 PM [facility] Creatinine 2.20(H) 0.70 - 1.30 mg/dL LAB CHEMISTRY METHOD 07/28/2024 4:24 PM [facility] eGFR 31(L) >=60 mL/min/1. 73m2 LAB CHEMISTRY METHOD 07/28/2024 4:24 PM [facility] Comment:Calculation based on the Chronic Kidney Disease Epidemiology Collaboration (CKD-EPI) equation refit without adjustment for race. BUN/Creatinine Ratio 14.1 LAB CHEMISTRY METHOD 07/28/2024 4:24 PM [facility] Calcium 9.4 8.5 - 10.5 mg/dL LAB CHEMISTRY METHOD 07/28/2024 4:24 PM [facility] AST (SGOT) 18 10 - 42 unit/L LAB CHEMISTRY METHOD 07/28/2024 4:24 PM [facility] ALT (SGPT) 19 10 - 60 unit/L LAB CHEMISTRY METHOD 07/28/2024 4:24 PM [facility] Alkaline Phosphatase 52 42 - 121 unit/L LAB CHEMISTRY METHOD 07/28/2024 4:24 PM EST [facility] Total Protein 6.7 6.0 - 8.0 g/dL LAB CHEMISTRY METHOD 07/28/2024 4:24 PM [facility] Albumin 4.1 3.2 - 5.0 g/dL LAB CHEMISTRY METHOD 07/28/2024 4:24 PM [facility] Total Bilirubin 1.0 0.0 - 1.4 mg/dL LAB CHEMISTRY METHOD 07/28/2024 4:24 PM [facility] Blood Venous blood specimen / Unknown Venipuncture / Unknown 07/28/2024 3:11 PM EST 07/28/2024 3:27 PM EST us Rober Vaughan MD LAB BLOOD ORDERABLES Final Res ult [facility] [address] [place] [address], [place] [phone] * Thyroid stimulating hormone (07/28/2024 3:11 PM EST) TSH 2.25 0.40 - 4.00 mcIU/mL LAB CHEMISTRY METHOD 07/28/2024 4:28 PM [facility] Blood Venous blood specimen / Unknown Venipuncture / Unknown 07/28/2024 3:11 PM EST 07/28/2024 3:27 PM EST us Rboer Vaughan MD LAB BLOOD ORDERABLES Final Res ult [facility] [address] [place] [address], [place] [phone] documented in this encounter Visit Diagnoses Diagnosis Postprocedural hypothyroidism Postsurgical hypothyroidism Essential (primary) hypertension Unspecified essential hypertension Encounter for general adult medical examination with abnormal findings Unspecified osteoarthritis, unspecified site documented in this encounter Care Teams Collection Administrator Relationship Specialty Start Date End Date Rober Vaughan MD [address] [place] [address] PCP - General Internal Medicine 09/26/24 documented as of this encounter
== END 2024-11-16 14:38 | disposition home or self-care (01) ==
LOC: HO.ACS 14:22
PROVIDERS: PCP Internal Medicine; Visit Provider Internal Medicine Medical Oncology
DX: Z79.01 Long term (current) use of anticoagulants (principal)

== ENCOUNTER → 2024-11-16 14:22 | Outpatient (BNVA) | payer MEDICARE, SELFPAY | PROVIDERS: PCP Internal Medicine; Visit Provider Internal Medicine Medical Oncology | DX: Z79.01 Long term (current) use of anticoagulants (principal) | CPT/HCPCS: 85610; 99211 ==

== ENCOUNTER 2024-12-21 14:17 | Outpatient (AMB) | payer MEDICARE, SELFPAY ==
--- NOTE | 2024-12-21 14:47 | MHC.OFFVISCO ---
Intake Intake Visit Reasons: Anticoagulation Allergies No Known Allergies Allergy (Verified 12/21/24 14:40) Medication List - Last Reconciled 12/21/24 by Mary Santa RN allopurinol 150 mg PO DAILY fenofibrate 54 mg PO DAILY gabapentin 100 mg PO DAILY PRN hydroxyurea 500 mg PO DAILY losartan 100 mg PO DAILY warfarin 1 mg See Protocol PO DAILY Nursing Note INR 3.2-?? out of therapeutic range 2-3 Medications and supplements reviewed Patient status: pt states taking aleve d/t racketball- aware of risk of bleed, pcp aware Medications or supplements: no changes Diet: same Denies any signs and symptoms of bleeding or clotting or unusual bruising Bleeding, bruising, clotting discussed Nutritional guidance given: eat greens to lower Dose: 1mg x 6, 0.5mg x1 F/U INR Date : 4 weeks? Patient verbalizing understanding of instructions given. 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
--- OUTSIDE RECORDS SUMMARY | 2024-12-21 14:56 | XMS_ITS | Encounter Summary ---
Author Organization [facility] Address [address] [place] [address] Care Team Providers Care Soap Drier Operator Name Role Phone Rober Vaughan MD Primary Care Provider [phone] Encounter Details Date Type Department Care Team (Latest Contact Info) Description 07/26/2024 Lab Requisition [facility] - Main Lab [address] [facility] [place] [address] Rober Vaughan MD [address] [place] [address] Postprocedural hypothyroidism; Essential (primary) hypertension; Encounter for [...] Description 05/03/2025 2:30 PM EST Office Visit [facility] Hematology Oncology [address] [place] [address] Nia Browning MD [address] [place] [address] documented as of this encounter [...] LAB HEMETOLOGY METHOD 07/28/2024 4:08 PM EST [facility] Blood Venous blood specimen / Unknown Venipuncture / Unknown 07/28/2024 3:11 PM EST 07/28/2024 3:27 PM EST us Rober Vaughan MD LAB BLOOD ORDERABLES Final Res ult [facility] [address] [place] [address], [place] [phone] * (ABNORMAL) Complete blood count (07/28/2024 3:11 PM EST) WBC 7.3 4.8 - 10.8 K/mcL LAB HEMETOLOGY METHOD 07/28/2024 3:57 PM EST [facility] RBC 5.00 4.50 - 5.50 M/mcL LAB HEMETOLOGY METHOD 07/28/2024 3:57 PM EST [facility] Hemoglobin 15.0 13.5 - 17.5 g/dL LAB HEMETOLOGY METHOD 07/28/2024 3:57 PM EST [facility] Hematocrit 47.3 42.0 - 54.0 % LAB HEMETOLOGY METHOD 07/28/2024 3:57 PM EST [facility] MCV 94.2 79.0 - 98.0 FL LAB HEMETOLOGY METHOD 07/28/2024 3:57 PM EST [facility] MCH 29.9 27.0 - 32.0 pcg LAB HEMETOLOGY METHOD 07/28/2024 3:57 PM EST [facility] MCHC 31.7(L) 32.0 - 37.0 g/dL LAB HEMETOLOGY METHOD 07/28/2024 3:57 PM EST [facility] RDW 15.3(H) 11.0 - 15.0 % LAB HEMETOLOGY METHOD 07/28/2024 3:57 PM [facility] Platelets 410(H) 130 - 400 K/mcL LAB HEMETOLOGY METHOD 07/28/2024 3:57 PM EST [facility] MPV 9.4 7.0 - 11.0 FL LAB HEMETOLOGY METHOD 07/28/2024 3:57 PM EST [facility] NRBC 0.0 <1.0 % LAB HEMETOLOGY METHOD 07/28/2024 3:57 PM EST [facility] NRBC Absolute 0.00 <0.10 K/mcL LAB HEMETOLOGY METHOD 07/28/2024 3:57 PM EST [facility] Blood Venous blood specimen / Unknown Venipuncture / Unknown 07/28/2024 3:11 PM EST 07/28/2024 3:27 PM EST us Rober Vaughan MD LAB BLOOD ORDERABLES Final Res ult [facility] [address] [place] [address], [place] [phone] * (ABNORMAL) Comprehensive metabolic panel (07/28/2024 3:11 PM EST) Sodium 137 133 - 145 mmol/L LAB CHEMISTRY METHOD 07/28/2024 4:24 PM [facility] Potassium 4.5 3.5 - 5.5 mmol/L LAB CHEMISTRY METHOD 07/28/2024 4:24 PM [facility] Chloride 107 96 - 110 mmol/L LAB CHEMISTRY METHOD 07/28/2024 4:24 PM [facility] CO2 25 21 - 32 mmol/L LAB CHEMISTRY METHOD 07/28/2024 4:24 PM [facility] Anion Gap 5 3 - 11 LAB CHEMISTRY METHOD 07/28/2024 4:24 PM [facility] Glucose 90 70 - 100 mg/dL LAB CHEMISTRY METHOD 07/28/2024 4:24 PM [facility] BUN 31(H) 5 - 25 mg/dL LAB CHEMISTRY METHOD 07/28/2024 4:24 PM [facility] Creatinine 2.20(H) 0.70 - 1.30 mg/dL LAB CHEMISTRY METHOD 07/28/2024 4:24 PM [facility] eGFR 31(L) >=60 mL/min/1. 73m2 LAB CHEMISTRY METHOD 07/28/2024 4:24 PM [facility] Comment:Calculation based on the Chronic Kidney Disease Epidemiology Collaboration (CKD-EPI) equation refit without adjustment for race. BUN/Creatinine Ratio 14.1 LAB CHEMISTRY METHOD 07/28/2024 4:24 PM [facility] Calcium 9.4 8.5 - 10.5 mg/dL LAB CHEMISTRY METHOD 07/28/2024 4:24 PM [facility] AST (SGOT) 18 10 - 42 unit/L LAB CHEMISTRY METHOD 07/28/2024 4:24 PM [facility] ALT (SGPT) 19 10 - 60 unit/L LAB CHEMISTRY METHOD 07/28/2024 4:24 PM [facility] Alkaline Phosphatase 52 42 - 121 unit/L LAB CHEMISTRY METHOD 07/28/2024 4:24 PM EST [facility] Total Protein 6.7 6.0 - 8.0 g/dL LAB CHEMISTRY METHOD 07/28/2024 4:24 PM [facility] Albumin 4.1 3.2 - 5.0 g/dL LAB CHEMISTRY METHOD 07/28/2024 4:24 PM [facility] Total Bilirubin 1.0 0.0 - 1.4 mg/dL LAB CHEMISTRY METHOD 07/28/2024 4:24 PM [facility] Blood Venous blood specimen / Unknown Venipuncture / Unknown 07/28/2024 3:11 PM EST 07/28/2024 3:27 PM EST us Rober Vaughan MD LAB BLOOD ORDERABLES Final Res ult [facility] [address] [place] [address], [place] [phone] * Thyroid stimulating hormone (07/28/2024 3:11 PM EST) TSH 2.25 0.40 - 4.00 mcIU/mL LAB CHEMISTRY METHOD 07/28/2024 4:28 PM [facility] Blood Venous blood specimen / Unknown Venipuncture / Unknown 07/28/2024 3:11 PM EST 07/28/2024 3:27 PM EST us Rober Vaughan MD LAB BLOOD ORDERABLES Final Res ult [facility] [address] [place] [address], [place] [phone] documented in this encounter Visit Diagnoses Diagnosis Postprocedural hypothyroidism Postsurgical hypothyroidism Essential (primary) hypertension Unspecified essential hypertension Encounter for general adult medical examination with abnormal findings Unspecified osteoarthritis, unspecified site documented in this encounter Care Teams Soap Drier Operator Relationship Specialty Start Date End Date Rober Vaughan MD [address] [place] [address] PCP - General Internal Medicine 09/26/24 documented as of this encounter
--- OUTSIDE RECORDS SUMMARY | 2024-12-21 14:56 | XMS_ITS | Clinical Summary ---
Author Organization [facility] Address [address] [place] [address] Care Team Providers Care Voip Engineer Name Role Phone Rober Vaughan MD Primary Care Provider [phone] Allergies No known active allergies Medications Medication [...] 63 10/14/2023 2:28 PM EDT Temperature 36.5 C (97.7 F) 06/17/2023 2:42 PM EST Respiratory Rate - - Oxygen Saturation 98% [...] Fall Risk Assessment 12/20/2016 Influenza Vaccine (#1) 2025 RSV Adult > 60+ Yrs or Pregn ant (1 - 1-dose 75+ series) 12/20/2026 Hepatitis B Vaccines Aged Out No long er eligible based on patient's age to complete this topic RSV Ped < 20 months Aged Out No longe r eligible based on patient's age to complete this topic Care Teams Voip Engineer Relationship Specialty Start Date End Date Rober Vaughan MD PCP - General Internal Medicine 06/11/16
--- OUTSIDE RECORDS SUMMARY | 2024-12-21 14:56 | XMS_ITS | Clinical Summary ---
Author Organization [facility] Address [address] [place] [phone] Phone Care Team Providers Care Executive Housekeeper Name Role Phone Rober Vaughan MD Primary Care Provider [phone] Allergies No known active allergies Medications fenofibrate [...] (1000 UT) tablet Take by mouth Active hydrALAZINE 25 MG tablet Take 25 mg by mouth in the morning and 25 mg in the evening and 25 mg before bedtime. 09/03/2024 Active Active Problems Problem Noted Date Diagnosed [...] disease 08/16/2019 10/21/2022 Frequency of micturition 05/03/2015 Encounters Date Type Department Care Team Description 10/06/2024 8:00 AM EDT Office Visit [facility] [address] [facility] [address] [place] [phone] Napoleon Mooney MD Stage 3a chronic kidney disease (HCC) (Primary Dx); Hypertension; Essential thrombocytosis (HCC); Other obesity; Benign prostatic hyperplasia; Thrombosis of mesenteric vein (HCC); Cyst of kidney; Hypercalcemia 10/05/2024 Orders Only [facility] [address] [place] [phone] Napoleon Mooney MD Stage 3a chronic kidney disease (HCC); Hypertension; Hypercalcemia; Essential thrombocytosis (HCC); Benign prostatic hyperplasia from Last 3 Months Family History Medical History Relation Comments Coronary [...] Sign Reading Time Taken Comments Blood Pressure 130/72 10/06/2024 7:47 AM EDT Pulse 72 10/06/2024 7:47 AM EDT Temperature - - Respiratory Rate - - Oxygen Saturation 98% 10/06/2024 7:47 AM EDT Inhaled Oxygen Concentration - - Weight 111 kg (244 lb) 10/06/2024 7:47 AM EDT Height 185.4 cm (6' 1 ) 10/21/2023 7:40 AM EDT Body Mass Index 32.19 10/21/2023 7:40 AM EDT Plan of Treatment Upcoming Encounters Date Type Department Care Team (Late st Contact Info) Description 04/06/2025 8:20 AM EST Office Visit [facility] [address] [phone] Napoleon Mooney MD [address] [address] Health Maintenance Due Date Last Done Comments Pneumococcal Vaccine: 50+ Ye ars (1 of 2 - PCV) 12/20/1970 Colorectal Cancer Screening: Annual FOBT 12/20/2000 Colorectal Cancer Screening: Colonoscopy 12/20/2000 Colorectal Cancer Screening: Sigmoidoscopy 12/20/2000 Influenza Vaccine (#1) 2025 Hepatitis B Vaccine Aged Out No longe r eligible based on patient's age to complete this topic Procedures Procedure Name Priority Date/Time Associated Diagnosis Comments PROTEIN / CREATININE RATIO, URINE Routine 09/26/2024 1:59 PM EDT Stage 3a chronic kidney disease (HCC) Hypertension Hypercalcemia Essential thrombocytosis (HCC) Benign prostatic hyperplasia CBC WITH AUTO DIFFERENTIAL Routine 09/26/2024 1:53 PM EDT VITAMIN D 25 HYDROXY Routine 09/26/2024 1:53 PM EDT Stage 3a chronic kidney disease (HCC) Hypertension Hypercalcemia Essential thrombocytosis (HCC) Benign prostatic hyperplasia PTH, INTACT Routine 09/26/2024 1:53 PM EDT Stage 3a chronic kidney disease (HCC) Hypertension Hypercalcemia Essential thrombocytosis (HCC) Benign prostatic hyperplasia PHOSPHATE ( PHOSPHORUS) Routine 09/26/2024 1:53 PM EDT Stage 3a chronic kidney disease (HCC) Hypertension Hypercalcemia Essential thrombocytosis (HCC) Benign prostatic hyperplasia MAGNESIUM Routine 09/26/2024 1:53 PM EDT Stage 3a chronic kidney disease (HCC) Hypertension Hypercalcemia Essential thrombocytosis (HCC) Benign prostatic hyperplasia URIC ACID Routine 09/26/2024 1:53 PM EDT Stage 3a chronic kidney disease (HCC) Hypertension Hypercalcemia Essential thrombocytosis (HCC) Benign prostatic hyperplasia COMPREHENSIVE METABOLIC PANEL Routine 09/26/2024 1:53 PM EDT Stage 3a chronic kidney disease (HCC) Hypertension Hypercalcemia Essential thrombocytosis (HCC) Benign prostatic hyperplasia from Last 3 Months Results * Protein, Total, Random Urine w/Creatinine (Protein/Creat Ratio) (09/26/2024 1:59 PM EDT) [facility] Protein, Ur 23 mg/dL [facility] Urine Protein/Creati nine Ratio 0.10 <=0.20 mg/mg creat [facility] Creatinine, Urine 234.0 mg/dL [facility] Urine specimen (specimen) Urine specimen obtained by clean catch procedure / Unknown 09/26/2024 1:59 PM EDT 09/26/2024 4:07 PM EDT us Napoleon Mooney MD LAB URINE ORDERABLES Final Re sult [facility] [address] [place] [address] * (ABNORMAL) CBC auto differential (09/26/2024 1:53 PM EDT) [facility] WBC 8.2 4.8 - 10.8 K/mcL [facility] RBC 5.00 4.50 - 5.50 M/[facility] Hgb 15.6 13.5 - 17.5 g/dL [facility] Hematocrit 49.7 42.0 - 54.0 % [facility] MCV 98.6(H) 79.0 - 98.0 FL [facility] MCH 31.0 27.0 - 32.0 pcg [facility] MCHC 31.4(L) 32.0 - 37.0 g/dL [facility] RDW 14.1 11.0 - 15.0 % [facility] Platelets 431(H) 130 - 400 K/[facility] MPV 8.9 7.0 - 11.0 FL [facility] nRBC Count 0.0 <1.0 % [facility] NRBC Absolute 0.00 <0.10 K/[facility] Bands Relative 74.8 % [facility] Lymphocyte Realative Percent 14.4 % [facility] Monocyte Relative Percent 7.6 % [facility] Eosinophil Relative Percent 1.6 % [facility] Basophils Relative Diff 1.1 % [facility] Immature Granulocytes 0.5 % [facility] Neutrophils Absolute 6.14 1.50 - 7.00 K/[facility] Lymphocytes Absolute 1.18 1.00 - 5.00 K/[facility] Monocytes Absolute 0.62 0.20 - 1.00 K/[facility] Eosinophil Absolute 0.13 0.00 - 0.50 [facility] Basophil ABS 0.09 0.00 - 0.20 K/[facility] Immature Grans (Absolute) 0.04(H) 0.00 - 0.03 K/[facility] 09/26/2024 1:53 PM EDT 09/26/2024 4:09 PM EDT us Napoleon Mooney MD LAB BLOOD ORDERABLES Final Re sult [facility] [address] [place] [address] * (ABNORMAL) Vitamin D 25 Hydroxy (09/26/2024 1:53 PM EDT) Vitamin D, 25-OH, Total 13.8(L) 30.0 - 80.0 ng/mL [facility] Blood specimen (specimen) Venous blood / Unknown 09/26/2024 1:53 PM EDT 09/26/2024 4:09 PM EDT us Napoleon Mooney MD LAB BLOOD ORDERABLES Final Re sult Performing Organization Address [facility]/ZIP Co de Phone Number [facility] [address] [place] [address] * Uric Acid (09/26/2024 1:53 PM EDT) Uric Acid 4.2 3.7 - 9.2 mg/dL [facility] Blood specimen (specimen) Venous blood / Unknown 09/26/2024 1:53 PM EDT 09/26/2024 4:09 PM EDT us Napoleon Mooney MD LAB BLOOD ORDERABLES Final Re sult Performing Organization Address [facility] Co de Phone Number [facility] [address] [place] [address] * Phosphorus (09/26/2024 1:53 PM EDT) Phosphorus 3.2 2.5 - 4.5 mg/dL [facility] Blood specimen (specimen) Venous blood / Unknown 09/26/2024 1:53 PM EDT 09/26/2024 4:09 PM EDT us Napoleon Mooney MD LAB BLOOD ORDERABLES Final Re sult Performing Organization Address [facility] Co de Phone Number [facility] [address] [place] [address] * PTH, Intact (09/26/2024 1:53 PM EDT) PTH 71.8 18.5 - 88.0 pcg/mL [facility] Blood specimen (specimen) Venous blood / Unknown 09/26/2024 1:53 PM EDT 09/26/2024 4:09 PM EDT Napoleon Mooney MD LAB BLOOD ORDERABLES Final Re sult Performing Organization Address [facility]/ZIP Co de Phone Number [facility] [address] [place] [address] * Magnesium (09/26/2024 1:53 PM EDT) [facility] Magnesium 2.3 1.9 - 2.6 mg/dL [facility] Blood specimen (specimen) Venous blood / Unknown 09/26/2024 1:53 PM EDT 09/26/2024 4:09 PM EDT Napoleon Mooney MD LAB BLOOD ORDERABLES Final Re sult Performing Organization Address [facility]/ZIP Co de Phone Number [facility] [address] [place] [address] * (ABNORMAL) Comprehensive Metabolic Panel (09/26/2024 1:53 PM EDT) [facility] Sodium 141 133 - 145 mmol/L [facility] Potassium 4.5 3.5 - 5.5 mmol/L [facility] Chloride 109 96 - 110 mmol/L [facility] Bicarbonate (CO2) 24 21 - 32 mmol/L [facility] Anion Gap 8 3 - 11 [facility] Glucose 69(L) 70 - 100 mg/dL [facility] BUN 25 5 - 25 mg/dL [facility] Creatinine Serum 2.12(H) 0.70 - 1.30 mg/dL [facility] eGFR 32(L) >=60 mL/min/1. 73m2 [facility] Comment:Calculation based on the Chronic Kidney Disease Epidemiology Collaboration (CKD-EPI) equation refit without adjustment for race. BUN/Creatinine Ratio 11.8 [facility] Calcium 9.2 8.5 - 10.5 mg/dL [facility] AST (SGOT) 23 10 - 42 unit/L [facility] ALT (SGPT) 19 10 - 60 unit/L [facility] Alkaline Phosphatase 50 42 - 121 unit/L [facility] Total Protein 6.8 6.0 - 8.0 g/dL [facility] Albumin 4.1 3.2 - 5.0 g/dL [facility] Total Bilirubin 1.3 0.0 - 1.4 mg/dL [facility] Blood specimen (specimen) Venous blood / Unknown 09/26/2024 1:53 PM EDT 09/26/2024 4:09 PM EDT us Napoleon Mooney MD LAB BLOOD ORDERABLES Final Re sult [facility] [address] [place] [address] from Last 3 Months Insurance [facility] Care Teams Executive Housekeeper Relationship Specialty Start Date End Date Rober Vaughan MD [address] [place] [phone] PCP - General Internal Medicine 10/21/23
[2024-12-21 16:06] LABS: Prothrombin Time Whole Bld POC 38.1 sec (11.1-13.5); ~PT, ~INR - Anti Coag Clinic 3.2 (0.9-1.1)
== END 2024-12-21 15:02 | disposition home or self-care (01) ==
LOC: HO.ACS 14:17
PROVIDERS: PCP Internal Medicine; Visit Provider Internal Medicine Medical Oncology
DX: Z79.01 Long term (current) use of anticoagulants (principal)

== ENCOUNTER → 2024-12-21 14:17 | Outpatient (BNVA) | payer MEDICARE, SELFPAY | PROVIDERS: PCP Internal Medicine; Visit Provider Internal Medicine Medical Oncology | DX: D73.5 Infarction of spleen (principal); Z79.01 Long term (current) use of anticoagulants; Z51.81 Encounter for therapeutic drug level monitoring | CPT/HCPCS: 85610; 99211 ==

== ENCOUNTER 2025-01-18 14:40 | Outpatient (AMB) | payer MEDICARE, SELFPAY ==
--- NOTE | 2025-01-18 14:48 | MHC.OFFVISCO ---
Intake Intake Visit Reasons: Anticoagulation Allergies No Known Allergies Allergy (Verified 01/18/25 14:41) Medication List - Last Reconciled 01/18/25 by Mary Santa RN allopurinol 150 mg PO DAILY fenofibrate 54 mg PO DAILY gabapentin 100 mg PO DAILY PRN hydroxyurea 500 mg PO DAILY losartan 100 mg PO DAILY warfarin 1 mg See Protocol PO DAILY Nursing Note INR: 2.6- in therapeutic range 2-3 Medications and supplements reviewed- no changes No changes in health, diet, medications, or supplements, Denies any signs and symptoms of bleeding or bruising or clotting. 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
--- OUTSIDE RECORDS SUMMARY | 2025-01-18 15:35 | XMS_ITS | Encounter Summary ---
Author Organization [facility] Address [address] [place] [address] Care Team Providers Care Primary Teacher Name Role Phone Rober Vaughan MD Primary Care Provider [phone] Encounter Details Date Type Department Care Team (Latest Contact Info) Description 07/26/2024 Lab Requisition [facility] - Main Lab [address] [facility] [employer] [place] [address] Rober Vaughan MD [address] [place] [address] Postprocedural hypothyroidism; Essential (primary) hypertension; Encounter for [...] 05/03/2025 2:30 PM EST Office Visit [facility] Hematology Oncology [address] [place] [address] Nia Browning MD [address] [place] [address] documented as of this encounter [...] LAB HEMETOLOGY METHOD 07/28/2024 4:[address] [facility] Blood Venous blood specimen / Unknown Venipuncture / Unknown 07/28/2024 3:11 PM EST 07/28/2024 3:27 PM EST us Rober Vaughan MD LAB BLOOD ORDERABLES Final Res ult [facility] [address] [place] [address], [place] [phone] * (ABNORMAL) Complete blood count (07/28/2024 3:11 PM EST) WBC 7.3 4.8 - 10.8 K/mcL LAB HEMETOLOGY METHOD 07/28/2024 3:[address] [facility] RBC 5.00 4.50 - 5.50 M/mcL LAB HEMETOLOGY METHOD 07/28/2024 3:[address] [facility] Hemoglobin 15.0 13.5 - 17.5 g/dL LAB HEMETOLOGY METHOD 07/28/2024 3:[address] [facility] Hematocrit 47.3 42.0 - 54.0 % LAB HEMETOLOGY METHOD 07/28/2024 3:[address] [facility] MCV 94.2 79.0 - 98.0 FL LAB HEMETOLOGY METHOD 07/28/2024 3:[address] [facility] MCH 29.9 27.0 - 32.0 pcg LAB HEMETOLOGY METHOD 07/28/2024 3:[address] [facility] MCHC 31.7(L) 32.0 - 37.0 g/dL LAB HEMETOLOGY METHOD 07/28/2024 3:[address] [facility] RDW 15.3(H) 11.0 - 15.0 % LAB HEMETOLOGY METHOD 07/28/2024 3:57 PM [facility] Platelets 410(H) 130 - 400 K/mcL LAB HEMETOLOGY METHOD 07/28/2024 3:[address] [facility] MPV 9.4 7.0 - 11.0 FL LAB HEMETOLOGY METHOD 07/28/2024 3:[address] [facility] NRBC 0.0 <1.0 % LAB HEMETOLOGY METHOD 07/28/2024 3:[address] [facility] NRBC Absolute 0.00 <0.10 K/mcL LAB HEMETOLOGY METHOD 07/28/2024 3:[address] [facility] Blood Venous blood specimen / Unknown Venipuncture / Unknown 07/28/2024 3:11 PM EST 07/28/2024 3:27 PM EST us Rober Vaughan MD LAB BLOOD ORDERABLES Final Res ult [facility] [address] [place] [address], [place] [phone] * (ABNORMAL) Comprehensive metabolic panel (07/28/2024 3:11 [...] [facility] Comment:Calculation based on the Chronic Kidney [...] LAB CHEMISTRY METHOD 07/28/2024 4:[address] [facility] Total Protein 6.7 6.0 - [...] MD LAB BLOOD ORDERABLES Final Res ult [facility] [address] [place] [address], [place] [phone] * Thyroid stimulating hormone (07/28/2024 3:11 PM EST) TSH 2.25 0.40 - 4.00 mcIU/mL LAB CHEMISTRY METHOD 07/28/2024 4:28 PM [facility] Blood Venous blood specimen / Unknown Venipuncture / Unknown 07/28/2024 3:11 PM EST 07/28/2024 3:27 PM EST us Rober Vaughan MD LAB BLOOD ORDERABLES Final Res ult [facility] [address] [place] [address], [place] [phone] documented in this encounter Visit Diagnoses Diagnosis Postprocedural hypothyroidism Postsurgical hypothyroidism Essential (primary) hypertension Unspecified essential hypertension Encounter for general adult medical examination with abnormal findings Unspecified osteoarthritis, unspecified site documented in this encounter Care Teams Primary Teacher Relationship Specialty Start Date End Date Rober Vaughan MD [address] [place] [address] PCP - General Internal Medicine 09/26/24 documented as of this encounter
--- OUTSIDE RECORDS SUMMARY | 2025-01-18 15:42 | XMS_ITS | Clinical Summary ---
Author Organization [facility] Address [address] [place] [phone] Phone Care Team Providers Care Asphalt Heater Tender Name Role Phone Rober Vaughan MD Primary Care Provider [phone] Allergies No known active allergies Medications fenofibrate [...] Office Visit [facility] [address] [phone] Napoleon Mooney MD [address] [phone] Health Maintenance Due Date Last Done Comments Pneumococcal Vaccine: 50+ Ye ars (1 of 2 - PCV) 12/20/1970 Colorectal Cancer Screening: Annual FOBT 12/20/2000 Colorectal Cancer Screening: Colonoscopy 12/20/2000 Colorectal Cancer Screening: Sigmoidoscopy 12/20/2000 Influenza Vaccine (#1) 2025 Hepatitis B Vaccine Aged Out No longe r eligible based on patient's age to complete this topic Insurance [place] [address] [facility] Care Teams Asphalt Heater Tender Relationship Specialty Start Date End Date Rober Vaughan MD [address] [place] [phone] PCP - General Internal Medicine 10/21/23
--- OUTSIDE RECORDS SUMMARY | 2025-01-18 15:44 | XMS_ITS | Clinical Summary ---
Author Organization [facility] Address [address] [place] [address] Care Team Providers Care Tierce Filler Name Role Phone Rober Vaughan MD Primary Care Provider [phone] Allergies No known active allergies Medications Medication [...] age to complete this topic Care Teams Tierce Filler Relationship Specialty Start Date End Date Rober Vaughan MD PCP - General Internal Medicine 06/11/16
--- OUTSIDE RECORDS SUMMARY | 2025-01-18 15:47 | XMS_ITS | Patient Health Record ---
Author Organization [facility] Address [address] [facility] [place] [address] Care Team Providers Care Rabbit Fancier Name Role Phone Clement SOTO, Rober Primary Care Provider Unavail able Guy Raines Unavailable [phone] Reason For Referral No Information Medications Medication SIG (Take, Route, Fr equency, Duration) Notes Start Date End Date Status aleve as directed Active traMADol HCl 50 MG 1 tablet as needed O rally every 6 hrs Active Coumadin 1 MG 1 tablet Orally Once a day; Duration: 30 day(s) Active Problems Problem Type SNOMED Code ICD Code Onset Dates Problem Status W/U Status Risk Notes Problem Bursitis (60403200) Bursitis (727.3) Active confirmed Problem Hammer toe (735.4) Active confirmed Plan Of Treatment Pending Test Test Name Order Date X ray : Foot, right 3V 02/03/2013 Insurance Providers Payer Name Payer Address Payer Phone Subscriber Number Group Number Insured Name Patient Relationship to Insured Coverage Start Date Coverage End Date [facility] [address] [place] [address] [id number] Jerry Self - patient is the insured Medical (General) History Medical History History ICD Code measles mumps chicken pox Surgical History Surgery Date(Month/Year) thyroidectomy
--- OUTSIDE RECORDS SUMMARY | 2025-01-18 15:48 | XMS_ITS | Encounter Summary ---
Author Organization [facility] Address [address] [place] [address] Care Team Providers Care Warehouse Shipping Associate Name Role Phone Rober Vaughan MD Primary Care Provider [phone] Encounter Details Date Type Department Care Team (Latest Contact Info) Description 12/11/2024 Lab Requisition [facility] - Main Lab [address] [place] [address] Rober Vaughan MD [address] [place] [address] Postprocedural hypothyroidism; Encounter for general adult medical examination without abnormal findings; Essential (primary) hypertension; Mild intermittent asthma, uncomplicated; Unspecified osteoarthritis, unspecified site; Vitamin D deficiency, unspecified; Type 2 diabetes mellitus with hyperglycemia ([facility] V24, [facility] V28) Social History Tobacco Use Types Packs/Day Years [...] Description 05/03/2025 2:30 PM EST Office Visit [facility] Hematology Oncology [address] [place] [address] Nia Browning MD [address] [place] [phone] documented as of this encounter Procedures Procedure Name Priority Date/Time Associated Diagnosis Comments LIPID PANEL WITH REFLEX TO DIRECT LDL Routine 12/12/2024 2:03 PM EDT Encounter for general adult medical examination without abnormal findings CBC WITH AUTO DIFFERENTIAL Routine 12/12/2024 2:03 PM EDT Mild intermittent asthma, uncomplicated MICROALBUMIN CREATININE URINE RATIO Routine 12/12/2024 2:03 PM EDT Essential (primary) hypertension VITAMIN D 25 HYDROXY Routine 12/12/2024 2:03 PM EDT Vitamin D deficiency, unspecified SEDIMENTATION RATE Routine 12/12/2024 2: 03 PM EDT Unspecified osteoarthritis, unspecified site CBC AND DIFFERENTIAL Routine 12/12/2024 2:03 PM EDT Mild intermittent asthma, uncomplicated URIC ACID Routine 12/12/2024 2:03 PM EDT Encounter for general adult medical examination without abnormal findings THYROID STIMULATING HORMONE Routine 12/12/2024 2:03 PM EDT Postprocedural hypothyroidism HEMOGLOBIN A1C Routine 12/12/2024 2:03 PM EDT Type 2 diabetes mellitus with hyperglycemia ([facility] V24, [facility] V28) COMPREHENSIVE METABOLIC PANEL Routine 12/12/2024 2:03 PM EDT Essential (primary) hypertension documented in this encounter Results * (ABNORMAL) CBC auto differential (12/12/2024 2:03 PM EDT) WBC 8.9 4.8 - 10.8 K/mcL LAB HEMETOLOGY METHOD 12/12/2024 3:54 PM EDT [facility] RBC 5.10 4.50 - 5.50 M/mcL LAB HEMETOLOGY METHOD 12/12/2024 3:54 PM EDT [facility] Hemoglobin 16.1 13.5 - 17.5 g/dL LAB HEMETOLOGY METHOD 12/12/2024 3:54 PM EDT [facility] Hematocrit 50.2 42.0 - 54.0 % LAB [facility] MCV 99.2(H) 79.0 - 98.0 FL LAB HEMETOLOGY METHOD 12/12/2024 3:54 PM EDT [facility] MCH 31.8 27.0 - 32.0 pcg LAB HEMETOLOGY METHOD [facility]/12[facility]24 [facility] MCHC 32.1 32.0 - 37.0 g/dL LAB HEMETOLOGY METHOD 12/12/2024 3:[facility] RDW 13.4 11.0 - 15.0 % LAB HEMETOLOGY METHOD 12/12/2024 3:54 PM EDT [facility] Platelets 509(H) 130 - 400 K/mcL LAB HEMETOLOGY METHOD 12/12[facility]2024 [facility] MPV 9.0 7.0 - 11.0 FL LAB HEMETOLOGY METHOD 12/12/2024 3[facility] NRBC 0.0 <1.0 % LAB HEMETOLOGY METHOD 12/12/2024 3:54 PM EDT [facility] NRBC Absolute 0.00 <0.10 K/mcL LAB HEMETOLOGY METHOD 12/12/2024 3[facility] Neutrophils Relative 76.5 % LAB HEMETOLOGY METHOD 12/12/2024 3[facility] Lymphocytes Relative 12.1 % LAB HEMETOLOGY METHOD 12/12/2024 3:54 PM EDT [facility] Monocytes Relative 7.8 % LAB HEMETOLOGY METHOD 12/12/2024 3:54 PM EDT [facility] Eosinophils Relative 2.0 % LAB HEMETOLOGY METHOD 12/12/2024 3:54 PM EDT [facility] Basophils Relative 1.2 % LAB HEMETOLOGY METHOD 12/12/2024 3:54 PM EDT [facility] Immature Granulocytes Relative 0.4 % LAB HEMETOLOGY METHOD 12/12/2024 3:54 PM EDT [facility] Neutrophils Absolute 6.79 1.50 - 7.00 K/mcL LAB HEMETOLOGY METHOD 12/12/2024 3:54 PM EDT [facility] Lymphocytes Absolute 1.08 1.00 - 5.00 K/mcL LAB HEMETOLOGY METHOD 12/12/2024 3:54 PM EDT [facility] Monocytes Absolute 0.69 0.20 - 1.00 K/mcL LAB HEMETOLOGY METHOD 12/12/2024 3:54 PM EDT [facility] Eosinophils Absolute 0.18 0.00 - 0.50 K/mcL LAB HEMETOLOGY METHOD 12/12/2024 3:54 PM EDT [facility] Basophils Absolute 0.11 0.00 - 0.20 K/mcL LAB HEMETOLOGY METHOD 12/12/2024 3:54 PM EDT [facility] Immature Granulocytes Absolute 0.04(H) 0.00 - 0.03 K/mcL LAB HEMETOLOGY METHOD 12/12/2024 3:54 PM EDT [facility] Blood Venous blood specimen / Unknown Venipuncture / Unknown 12/12/2024 2:03 PM EDT 12/12/2024 3:09 PM EDT us Rober Vaughan MD LAB BLOOD ORDERABLES Final Res ult [facility] [address] [place] [address], [place] [phone] * Hemoglobin A1c (12/12/2024 2:03 PM EDT) Hemoglobin A1C 5.3 <6.5 % LAB CHEMISTRY METHOD 12/13/2024 11:06 AM EDT [facility] Mean Bld Glu Estim. 105 mg/dL LAB CHEMISTRY METHOD 12/13/2024 11:06 AM EDT [facility] Blood Venous blood specimen / Unknown Venipuncture / Unknown 12/12/2024 2:03 PM EDT 12/12/2024 3:09 PM EDT us Rober Vaughan MD LAB BLOOD ORDERABLES Final Res ult [facility] [address] [place] [address], [place] [phone] * (ABNORMAL) Microalbumin creatinine urine ratio (12/12/2024 2:03 PM EDT) Pathologist [facility] Creatinine, Urine 291.0 mg/dL LAB CHEMISTRY METHOD 12/12/2024 6:57 PM EDT [facility] Comment:Results verified by repeat testing Microalb, Ur 87.0(H) 0.0 - 29.0 mg/L LAB CHEMISTRY METHOD 12/12/2024 6:57 PM EDT [facility] Microalb/Crea t Ratio 30(H) <30 mg/g creat LAB CHEMISTRY METHOD 12/12/2024 6:57 PM EDT [facility] Urine Urine specimen obtained by clean catch procedure / Unknown Non-blood Collection / Unknown 12/12/2024 2:03 PM EDT 12/12/2024 3:10 PM EDT Rober Vaughan MD LAB URINE ORDERABLES Final Res ult Performing Organization Address [facility]/ZIP Co de Phone Number [facility] [address] [place] [address], [place] [phone] * (ABNORMAL) Vitamin D 25 hydroxy (12/12/2024 2:03 PM EDT) [facility] Vit D, 25-Hydroxy 17.1(L) 30.0 - 80.0 ng/mL LAB CHEMISTRY METHOD 12/12/2024 6:33 PM EDT [facility] Blood Venous blood specimen / Unknown Venipuncture / Unknown 12/12/2024 2:03 PM EDT 12/12/2024 3:10 PM EDT Rober Vaughan MD LAB BLOOD ORDERABLES Final Res ult Performing Organization Address [facility]/ZIP Co de Phone Number [facility] [address] [place] [address], [place] [phone] * (ABNORMAL) Lipid panel with reflex to direct LDL (12/12/2024 2:03 PM EDT) [facility] Cholesterol 160 0 - 200 mg/dL LAB CHEMISTRY METHOD 12/12/2024 6:02 PM EDT [facility] Triglycerides 178(H) 0 - 150 mg/dL LAB CHEMISTRY METHOD 12/12/2024 6:02 PM EDT [facility] HDL 41 >=40 mg/dL LAB CHEMISTRY METHOD 12/12/2024 6:02 PM EDT [facility] LDL Calculated 83 0 - 100 mg/dL LAB CHEMISTRY METHOD 12/12/2024 6:02 PM EDT [facility] VLDL Cholesterol Juan A 35.6 mg/dL LAB CHEMISTRY METHOD 12/12/2024 6:02 PM EDT [facility] Non HDL Chol. (LDL+VLDL) 119 <145 mg/dL LAB CHEMISTRY METHOD 12/12/2024 6:02 PM EDT [facility] Chol/HDL Ratio 3.9 0.0 - 4.4 LAB CHEMISTRY METHOD 12/12/2024 6:02 PM EDT [facility] Blood Venous blood specimen / Unknown Venipuncture / Unknown 12/12/2024 2:03 PM EDT 12/12/2024 3:10 PM EDT Rober Vaughan MD LAB BLOOD ORDERABLES Final Res ult [facility] [address] [place] [address], [place] [phone] * Sedimentation rate (12/12/2024 2:03 PM EDT) Sed Rate 7 0 - 20 mm/hr LAB HEMETOLOGY METHOD 12/12/2024 3:28 PM EDT [facility] Blood Venous blood specimen / Unknown Venipuncture / Unknown 12/12/2024 2:03 PM EDT 12/12/2024 3:09 PM EDT Rober Vaughan MD LAB BLOOD ORDERABLES Final Res ult Performing Organization Address [facility]/ZIP Co de Phone Number [facility] [address] [place] [address], [place] [phone] * (ABNORMAL) Comprehensive metabolic panel (12/12/2024 2:03 PM EDT) Sodium 140 133 - 145 mmol/L LAB CHEMISTRY METHOD 12/12/2024 6:02 PM EDT [facility] Potassium 4.7 3.5 - 5.5 mmol/L LAB CHEMISTRY METHOD 12/12/2024 6:02 PM EDT [facility] Chloride 109 96 - 110 mmol/L LAB CHEMISTRY METHOD 12/12/2024 6:02 PM EDT [facility] CO2 25 21 - 32 mmol/L LAB CHEMISTRY METHOD 12/12/2024 6:02 PM [facility] Anion Gap 6 3 - 11 LAB CHEMISTRY METHOD 12/12/2024 6:02 PM [facility] Glucose 71 70 - 100 mg/dL LAB CHEMISTRY METHOD 12/12/2024 6:02 PM [facility] BUN 25 5 - 25 mg/dL LAB CHEMISTRY METHOD 12/12/2024 6:02 PM [facility] Creatinine 2.22(H) 0.70 - 1.30 mg/dL LAB CHEMISTRY METHOD 12/12/2024 6:02 PM [facility] eGFR 31(L) >=60 mL/min/1. 73m2 LAB CHEMISTRY METHOD 12/12/2024 6:02 PM [facility] Comment:Calculation based on the Chronic Kidney Disease Epidemiology Collaboration (CKD-EPI) equation refit without adjustment for race. BUN/Creatinine Ratio 11.3 LAB CHEMISTRY METHOD 12/12/2024 6:02 PM [facility] Calcium 9.2 8.5 - 10.5 mg/dL LAB CHEMISTRY METHOD 12/12/2024 6:02 PM [facility] AST (SGOT) 17 10 - 42 unit/L LAB CHEMISTRY METHOD 12/12/2024 6:02 PM [facility] ALT (SGPT) 21 10 - 60 unit/L LAB CHEMISTRY METHOD 12/12/2024 6:02 PM [facility] Alkaline Phosphatase 57 42 - 121 unit/L LAB CHEMISTRY METHOD 12/12/2024 6:02 PM [facility] Total Protein 6.7 6.0 - 8.0 g/dL LAB CHEMISTRY METHOD 12/12/2024 6:02 PM [facility] Albumin 4.1 3.2 - 5.0 g/dL LAB CHEMISTRY METHOD 12/12/2024 6:02 PM [facility] Total Bilirubin 1.0 0.0 - 1.4 mg/dL LAB CHEMISTRY METHOD 12/12/2024 6:02 PM EDT [facility] Blood Venous blood specimen / Unknown Venipuncture / Unknown 12/12/2024 2:03 PM EDT 12/12/2024 3:10 PM EDT Rober Vaughan MD LAB BLOOD ORDERABLES Final Res ult Performing Organization Address City/[facility]/ZIP Co de Phone Number [facility] [address] [place] [address], [place] [phone] * Uric acid (12/12/2024 2:03 PM EDT) [facility] Uric Acid 5.0 3.7 - 9.2 mg/dL LAB CHEMISTRY METHOD 12/12/2024 6:01 PM EDT [facility] Blood Venous blood specimen / Unknown Venipuncture / Unknown 12/12/2024 2:03 PM EDT 12/12/2024 3:10 PM EDT Rober Vaughan MD LAB BLOOD ORDERABLES Final Res ult Performing Organization Address [facility] Co de Phone Number [facility] [address] [place] [address], [place] [phone] * Thyroid stimulating hormone (12/12/2024 2:03 PM EDT) [facility] TSH 2.06 0.40 - 4.00 mcIU/mL LAB CHEMISTRY METHOD 12/12/2024 6:34 PM EDT [facility] Blood Venous blood specimen / Unknown Venipuncture / Unknown 12/12/2024 2:03 PM EDT 12/12/2024 3:10 PM EDT Rober Vaughan MD LAB BLOOD ORDERABLES Final Res ult Performing Organization Address City/[facility]/ZIP Co de Phone Number [facility]) HOSPITAL LAB [address] [place] [address], documented in this encounter Visit Diagnoses Diagnosis Postprocedural hypothyroidism Postsurgical hypothyroidism Encounter for general adult medical examination without abnormal findings Essential (primary) hypertension Unspecified essential hypertension Mild intermittent asthma, uncomplicated Unspecified osteoarthritis, unspecified site Vitamin D deficiency, unspecified Type 2 diabetes mellitus with hyperglycemia ([facility] V24, [facility] V28) documented in this encounter Care Teams Warehouse Shipping Associate Relationship Specialty Start Date End Date Rober Vaughan MD [address] [place] [address] PCP - General Internal Medicine 09/26/24 documented as of this encounter
--- OUTSIDE RECORDS SUMMARY | 2025-01-18 15:51 | XMS_ITS | Clinical Summary ---
Author Organization [facility] Address [address] [place] [address] Phone Care Team Providers Care Assembly Line Robot Operator Name Role Phone Rober Vaughan MD Primary Care Provider [phone] Allergies No known active allergies Medications allopurinoL [...] losartan (COZAAR) 100 mg tablet 02/12/2024 Active hydrALAZINE (APRESOLINE) 25 mg tablet Take 1 tablet (25 mg total) by mouth. 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 Portal vein thrombosis 01/04/2020 Other fatigue 01/04/2020 Stage 3 chronic kidney disease (CMS/HCC V24, CMS /HCC V28) 01/04/2020 Encounters Date Type Department Care Team Description 12/11/2024 Lab Requisition [facility] - Main Lab [address] [facility] [place] [address] Rober Vaughan MD Postprocedural hypothyroidism; Encounter for general adult medical examination without abnormal findings; Essential (primary) hypertension; Mild intermittent asthma, uncomplicated; Unspecified osteoarthritis, unspecified site; Vitamin D deficiency, unspecified; Type 2 diabetes mellitus with hyperglycemia ([facility] V24, [facility] V28) from Last 3 Months Social History Tobacco Use Types Packs/Day Years Used Date Smoking Tobacco: Never Smokeless Tobacco: Never Tobacco Cessation:Counseling Given: Not Answered Alcohol Use Standard Drinks/Week Comments No 0 (1 standard drink = 0.6 oz pur e alcohol) Sex and Gender Information Value Date Recorded Sex Assigned at Not on file Legal Sex Male 11:32 PM EST Gender Identity Not on file Sexual Orientation Not on file Obstetrics History Last Filed Vital Signs Vital Sign Reading Time Taken Comments Blood Pressure 142/70 10/12/2024 2:43 PM EDT Pulse 61 10/12/2024 2:43 PM EDT Temperature 36.1 C (97 F) 10/12/2024 2:43 PM EDT Respiratory Rate - - Oxygen Saturation 99% 10/12/2024 2:43 PM EDT Inhaled Oxygen Concentration - - Weight 111 kg (244 lb 12.8 oz) 10/12/2024 2:43 P M EDT Height 185.4 cm (6' 1 ) 10/12/2024 2:43 PM EDT Body Mass Index 32.3 10/12/2024 2:43 PM EDT Plan of Treatment Upcoming Encounters Date Type Department Care Team (Late st Contact Info) Description 05/03/2025 2:30 PM EST Office Visit [facility] Hematology Oncology [address] [place] [address] Nia Browning MD [address] [place] [address] Health Maintenance Due Date Last Done Comments Diabetes: Annual Foot Exam 12/20/1961 Diabetes: Annual Retina Eye Exam 12/20/1961 DTaP,Tdap,and Td Vaccines (1 - Tdap) 12/20/1970 Pneumococcal Vaccine: 50+ Years (1 of 2 - PCV) 12/20/1970 Zoster Vaccines (1 of 2) 12/20/1970 RSV Immunization Adult Patients (1 - Risk 60-74 years 1-dose series) 2011 Colorectal Cancer Screening: Colonoscopy 05/02/2022 Falls Risk Assessment 05/02/2022 Hepatitis C Screening 05/02/2022 Medicare Annual Wellness Visit 05/02/2022 Social Influencers of Health Screening 05/02/2022 Depression Screening 05/25/2024 COVID-19 Vaccine (7 - Pfizer risk 2023- season) 2024 02/13/2024, 04/13/2023, 03/08/2022, Additional history exists Influenza Vaccine (#1) 2025 , 04/13/2023, 04/05/2022, Additional history exists Diabetes: Blood Sugar Control Test (HGBA1C) 06/14/2025 12/12/2024 Diabetes: Annual Urine Albumin-Creatinine Ratio (uACR) 12/12/2025 12/12/2024 Diabetes: Annual GFR (Glomerular Filtration Rate) 12/12/2025 12/12/2024, 09/26/2024, 09/26/2024, Additional history exists Hypertension/CHF/CAD Annual BMP Blood Test 12/12/2025 12/12/2024, 09/26/2024, 09/26/2024, Additional history exists Cholesterol Screening (Lipid Panel) 12/12/2029 12/12/2024 HIB Vaccines Aged Out No longer eligi [...] Diagnosis Comments CBC WITH AUTO DIFFERENTIAL Routine 12/12/2024 2:03 PM EDT Mild intermittent asthma, uncomplicated HEMOGLOBIN A1C Routine 12/12/2024 2:03 PM EDT Type 2 diabetes mellitus with hyperglycemia ([facility] V24, [facility] V28) MICROALBUMIN CREATININE URINE RATIO Routine 12/12/2024 2:03 PM EDT Essential (primary) hypertension VITAMIN D 25 HYDROXY Routine 12/12/2024 2:03 PM EDT Vitamin D deficiency, unspecified LIPID PANEL WITH REFLEX TO DIRECT LDL Routine 12/12/2024 2:03 PM EDT Encounter for general adult medical examination without abnormal findings SEDIMENTATION RATE Routine 12/12/2024 2: 03 PM EDT Unspecified osteoarthritis, unspecified site CBC AND DIFFERENTIAL Routine 12/12/2024 2:03 PM EDT Mild intermittent asthma, uncomplicated COMPREHENSIVE METABOLIC PANEL Routine 12/12/2024 2:03 PM EDT Essential (primary) hypertension URIC ACID Routine 12/12/2024 2:03 PM EDT Encounter for general adult medical examination without abnormal findings THYROID STIMULATING HORMONE Routine 12/12/2024 2:03 PM EDT Postprocedural hypothyroidism from Last 3 Months Results * (ABNORMAL) Lipid panel with reflex to direct LDL (12/12/2024 2:03 PM EDT) Cholesterol 160 0 - 200 mg/dL LAB CHEMISTRY METHOD 12/12/2024 6:02 PM EDT [facility] Triglycerides 178(H) 0 - 150 mg/dL LAB CHEMISTRY METHOD 12/12/2024 6:02 PM EDT [facility] HDL 41 >=40 mg/dL LAB CHEMISTRY METHOD 12/12/2024 6:02 PM EDT [facility] LDL Calculated 83 0 - 100 mg/dL LAB CHEMISTRY METHOD 12/12/2024 6:02 PM EDT [facility] VLDL Cholesterol Juan A 35.6 mg/dL LAB CHEMISTRY METHOD 12/12/2024 6:02 PM EDT [facility] Non HDL Chol. (LDL+VLDL) 119 <145 mg/dL LAB CHEMISTRY METHOD 12/12/2024 6:02 PM EDT [facility] Chol/HDL Ratio 3.9 0.0 - 4.4 LAB CHEMISTRY METHOD 12/12/2024 6:02 PM EDT [facility] Blood Venous blood specimen / Unknown Venipuncture / Unknown 12/12/2024 2:03 PM EDT 12/12/2024 3:10 PM EDT us Rober Vaughan MD LAB BLOOD ORDERABLES Final Res ult [facility] [address] [place] [address], [place] [phone] * (ABNORMAL) CBC auto differential (12/12/2024 2:03 PM EDT) WBC 8.9 4.8 - 10.8 K/mcL LAB HEMETOLOGY METHOD 12/12/2024 3:54 PM EDT [facility] RBC 5.10 4.50 - 5.50 M/mcL LAB HEMETOLOGY METHOD 12/12/2024 3:54 PM EDT [facility] Hemoglobin 16.1 13.5 - 17.5 g/dL LAB HEMETOLOGY METHOD 12/12/2024 3:54 PM EDT [facility] Hematocrit 50.2 42.0 - 54.0 % LAB HEMETOLOGY METHOD 12/12/2024 3:54 PM EDT [facility] MCV 99.2(H) 79.0 - 98.0 FL LAB HEMETOLOGY METHOD 12/12/2024 3:54 PM EDT [facility] MCH 31.8 27.0 - 32.0 pcg LAB HEMETOLOGY METHOD 12/12/2024 3:54 PM EDT [facility] MCHC 32.1 32.0 - 37.0 g/dL LAB HEMETOLOGY METHOD 12/12/2024 3:54 PM EDT [facility] RDW 13.4 11.0 - 15.0 % LAB HEMETOLOGY METHOD 12/12/2024 3:54 PM EDT [facility] Platelets 509(H) 130 - 400 K/mcL LAB HEMETOLOGY METHOD 12/12/2024 3:54 PM EDT [facility] MPV 9.0 7.0 - 11.0 FL LAB HEMETOLOGY METHOD 12/12/2024 3:54 PM EDT [facility] NRBC 0.0 <1.0 % LAB HEMETOLOGY METHOD 12/12/2024 3:54 PM EDT [facility] NRBC Absolute 0.00 <0.10 K/mcL LAB HEMETOLOGY METHOD 12/12/2024 3:54 PM EDT [facility] Neutrophils Relative 76.5 % LAB HEMETOLOGY METHOD 12/12/2024 3:54 PM EDT [facility] Lymphocytes Relative 12.1 % LAB HEMETOLOGY METHOD 12/12/2024 3:54 PM EDT [facility] Monocytes Relative 7.8 % LAB HEMETOLOGY METHOD 12/12/2024 3:54 PM EDT [facility] Eosinophils Relative 2.0 % LAB HEMETOLOGY METHOD 12/12/2024 3:54 PM EDT [facility] Basophils Relative 1.2 % LAB HEMETOLOGY METHOD 12/12/2024 3:54 PM EDT [facility] Immature Granulocytes Relative 0.4 % LAB HEMETOLOGY METHOD 12/12/2024 3:54 PM EDT [facility] Neutrophils Absolute 6.79 1.50 - 7.00 K/mcL LAB HEMETOLOGY METHOD 12/12/2024 3:54 PM EDT [facility] Lymphocytes Absolute 1.08 1.00 - 5.00 K/mcL LAB HEMETOLOGY METHOD 12/12/2024 3:54 PM EDT [facility] Monocytes Absolute 0.69 0.20 - 1.00 K/mcL LAB HEMETOLOGY METHOD 12/12/2024 3:54 PM EDT [facility] Eosinophils Absolute 0.18 0.00 - 0.50 K/mcL LAB HEMETOLOGY METHOD 12/12/2024 3:54 PM EDT [facility] Basophils Absolute 0.11 0.00 - 0.20 K/mcL LAB HEMETOLOGY METHOD 12/12/2024 3:54 PM EDT [facility] Immature Granulocytes Absolute 0.04(H) 0.00 - 0.03 K/mcL LAB HEMETOLOGY METHOD 12/12/2024 3:54 PM EDT [facility] Blood Venous blood specimen / Unknown Venipuncture / Unknown 12/12/2024 2:03 PM EDT 12/12/2024 3:09 PM EDT us Rober Vaughna MD LAB BLOOD ORDERABLES Final Res ult [facility] [address] [place] [address], [place] [phone] * (ABNORMAL) Microalbumin creatinine urine ratio (12/12/2024 2:03 PM EDT) Creatinine, Urine 291.0 mg/dL LAB CHEMISTRY METHOD 12/12/2024 6:57 PM EDT [facility] Comment:Results verified by repeat testing Microalb, Ur 87.0(H) 0.0 - 29.0 mg/L LAB CHEMISTRY METHOD 12/12/2024 6:57 PM EDT [facility] Microalb/Crea t Ratio 30(H) <30 mg/g creat LAB CHEMISTRY METHOD 12/12/2024 6:57 PM EDT [facility] Urine Urine specimen obtained by clean catch procedure / Unknown Non-blood Collection / Unknown 12/12/2024 2:03 PM EDT 12/12/2024 3:10 PM EDT Rober Vaughan MD LAB URINE ORDERABLES Final Res ult Performing Organization Address [facility]/ZIP Co de Phone Number [facility] [address] [place] [address], [place] [phone] * (ABNORMAL) Vitamin D 25 hydroxy (12/12/2024 2:03 PM EDT) [facility] Vit D, 25-Hydroxy 17.1(L) 30.0 - 80.0 ng/mL LAB CHEMISTRY METHOD 12/12/2024 6:33 PM EDT [facility] Blood Venous blood specimen / Unknown Venipuncture / Unknown 12/12/2024 2:03 PM EDT 12/12/2024 3:10 PM EDT Rober Vaughan MD LAB BLOOD ORDERABLES Final Res ult Performing Organization Address City/[facility]/ZIP Co de Phone Number [facility] [address] [place] [address], [place] [phone] * Sedimentation rate (12/12/2024 2:03 PM EDT) [facility] Sed Rate 7 0 - 20 mm/hr LAB HEMETOLOGY METHOD 12/12/2024 3:28 PM EDT [facility] Blood Venous blood specimen / Unknown Venipuncture / Unknown 12/12/2024 2:03 PM EDT 12/12/2024 3:09 PM EDT Rober Vaughan MD LAB BLOOD ORDERABLES Final Res ult Performing Organization Address City/[facility]/ZIP Co de Phone Number [facility] [address] [place] [address], [place] [phone] * Uric acid (12/12/2024 2:03 PM EDT) [facility] Uric Acid 5.0 3.7 - 9.2 mg/dL LAB CHEMISTRY METHOD 12/12/2024 6:01 PM EDT [facility] Blood Venous blood specimen / Unknown Venipuncture / Unknown 12/12/2024 2:03 PM EDT 12/12/2024 3:10 PM EDT us Rober Vaughan MD LAB BLOOD ORDERABLES Final Res ult Performing Organization Address [facility] Co de Phone Number [facility] [address] [place] [address], [place] [phone] * Thyroid stimulating hormone (12/12/2024 2:03 PM EDT) Pathologist [facility] TSH 2.06 0.40 - 4.00 mcIU/mL LAB CHEMISTRY METHOD 12/12/2024 6:34 PM EDT [facility] Blood Venous blood specimen / Unknown Venipuncture / Unknown 12/12/2024 2:03 PM EDT 12/12/2024 3:10 PM EDT Rober Vaughan MD LAB BLOOD ORDERABLES Final Res ult Performing Organization Address City/[facility]/ZIP Co de Phone Number [facility] [address] [place] [address], [place] [phone] * Hemoglobin A1c (12/12/2024 2:03 PM EDT) [facility] Hemoglobin A1C 5.3 <6.5 % LAB CHEMISTRY METHOD 12/13/2024 11:06 AM EDT [facility] Mean Bld Glu Estim. 105 mg/dL LAB CHEMISTRY METHOD 12/13/2024 11:06 AM EDT [facility] Blood Venous blood specimen / Unknown Venipuncture / Unknown 12/12/2024 2:03 PM EDT 12/12/2024 3:09 PM EDT Rober Vaughan MD LAB BLOOD ORDERABLES Final Res ult [facility] [address] [place] [address], [place] [phone] * (ABNORMAL) Comprehensive metabolic panel (12/12/2024 2:03 PM EDT) [facility] Sodium 140 133 - 145 mmol/L LAB CHEMISTRY METHOD 12/12/2024 6:02 PM [facility] Potassium 4.7 3.5 - 5.5 mmol/L LAB CHEMISTRY METHOD 12/12/2024 6:02 PM [facility] Chloride 109 96 - 110 mmol/L LAB CHEMISTRY METHOD 12/12/2024 6:02 PM [facility] CO2 25 21 - 32 mmol/L LAB CHEMISTRY METHOD 12/12/2024 6:02 PM [facility] Anion Gap 6 3 - 11 LAB CHEMISTRY METHOD 12/12/2024 6:02 PM [facility] Glucose 71 70 - 100 mg/dL LAB CHEMISTRY METHOD 12/12/2024 6:02 PM [facility] BUN 25 5 - 25 mg/dL LAB CHEMISTRY METHOD 12/12/2024 6:02 PM [facility] Creatinine 2.22(H) 0.70 - 1.30 mg/dL LAB CHEMISTRY METHOD 12/12/2024 6:02 PM [facility] eGFR 31(L) >=60 mL/min/1. 73m2 LAB CHEMISTRY METHOD 12/12/2024 6:02 PM [facility] Comment:Calculation based on the Chronic Kidney Disease Epidemiology Collaboration (CKD-EPI) equation refit without adjustment for race. BUN/Creatinine Ratio 11.3 LAB CHEMISTRY METHOD 12/12/2024 6:02 PM [facility] Calcium 9.2 8.5 - 10.5 mg/dL LAB CHEMISTRY METHOD 12/12/2024 6:02 PM [facility] AST (SGOT) 17 10 - 42 unit/L LAB CHEMISTRY METHOD 12/12/2024 6:02 PM [facility] ALT (SGPT) 21 10 - 60 unit/L LAB CHEMISTRY METHOD 12/12/2024 6:02 PM [facility] Alkaline Phosphatase 57 42 - 121 unit/L LAB CHEMISTRY METHOD 12/12/2024 6:02 PM [facility] Total Protein 6.7 6.0 - 8.0 g/dL LAB CHEMISTRY METHOD 12/12/2024 6:02 PM [facility] Albumin 4.1 3.2 - 5.0 g/dL LAB CHEMISTRY METHOD 12/12/2024 6:02 PM [facility] Total Bilirubin 1.0 0.0 - 1.4 mg/dL LAB CHEMISTRY METHOD 12/12/2024 6:02 PM [facility] Blood Venous blood specimen / Unknown Venipuncture / Unknown 12/12/2024 2:03 PM EDT 12/12/2024 3:10 PM EDT us Rober Vaughan MD LAB BLOOD ORDERABLES Final Res ult [facility] LAB [address] [place] [address], from Last 3 Months Insurance [employer] - [place] MEDICARE ADVANTAGE Care 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
[2025-01-19 08:08] LABS: Prothrombin Time Whole Bld POC 31.2 sec (11.1-13.5); ~PT, ~INR - Anti Coag Clinic 2.6 (0.9-1.1)
== END 2025-01-18 14:52 | disposition home or self-care (01) ==
LOC: HO.ACS 14:40
PROVIDERS: PCP Internal Medicine; Visit Provider Internal Medicine Medical Oncology
DX: Z79.01 Long term (current) use of anticoagulants (principal)

== ENCOUNTER → 2025-01-18 14:40 | Outpatient (BNVA) | payer MEDICARE, SELFPAY | PROVIDERS: PCP Internal Medicine; Visit Provider Internal Medicine Medical Oncology | DX: D73.5 Infarction of spleen (principal); Z79.01 Long term (current) use of anticoagulants; Z51.81 Encounter for therapeutic drug level monitoring | CPT/HCPCS: 85610; 99211 ==

== ENCOUNTER 2025-02-15 14:11 | Outpatient (AMB) | payer MEDICARE, SELFPAY ==
[2025-02-15 14:18] LABS: Prothrombin Time Whole Bld POC 31.1 sec (11.1-13.5); ~PT, ~INR - Anti Coag Clinic 2.6 (0.9-1.1)
--- NOTE | 2025-02-15 14:28 | MHC.OFFVISCO ---
Intake Intake Visit Reasons: Anticoagulation Allergies No Known Allergies Allergy (Verified 02/15/25 14:12) Medication List - Last Reconciled 02/15/25 by Mariel Wood RN allopurinol 150 mg PO DAILY fenofibrate 54 mg PO DAILY gabapentin 100 mg PO DAILY PRN hydroxyurea 500 mg PO DAILY losartan 100 mg PO DAILY warfarin 1 mg See Protocol PO DAILY Nursing Note NO CP,SOB,DIET/MED CHANGES,FALLS OR SX OF BLEEDING. CONTINUE PRESENT DOSE AND FOLLOW-UP IN 5 WEEKS GOOD UNDERSTANDING OF DOSING INSTR. Coding Level of Care Code Est Patient Level 1 Diagnoses Current use of anticoagulant therapy Z79.01 Assessment & Plan Assessment & Plan (1) Current use of anticoagulant therapy: Code(s): Z79.01 - FPC (current) use of anticoagulants Category: Medical
--- OUTSIDE RECORDS SUMMARY | 2025-02-15 16:51 | XMS_ITS | Encounter Summary ---
Author Organization [facility] Address [address] [place] [address] Care Team Providers Care Manager Gift Name Role Phone Rober Vaughan MD Primary Care Provider [phone] Encounter Details Date Type Department Care Team (Latest Contact Info) Description 07/26/2024 Lab Requisition [facility] - Main Lab [address] [facility] [place] [address] Rober Vaughan MD [address] [place] [address] Postprocedural hypothyroidism; Essential (primary) hypertension; Encounter for [...] Description 05/03/2025 2:30 PM EST Office Visit [facility] Hematology Oncology [address] [place] [address] Nia Browning MD [address] [place] [address] documented as of this encounter [...] Final Res ult [facility] [address] [place] [address], [place] [phone] * (ABNORMAL) Complete blood count (07/28/2024 3:11 [...] % LAB HEMETOLOGY METHOD 07/28/2024 3:57 PM [facility] Platelets 410(H) 130 [...] Final Res ult [facility] [address] [place] [address], [place] [phone] * (ABNORMAL) Comprehensive metabolic panel (07/28/2024 3:11 PM EST) Sodium 137 133 - 145 mmol/L LAB CHEMISTRY METHOD 07/28/2024 4:24 PM [facility] Potassium 4.5 3.5 - 5.5 mmol/L LAB CHEMISTRY METHOD 07/28/2024 4:24 PM [facility] Chloride 107 96 - 110 mmol/L LAB CHEMISTRY METHOD 07/28/2024 4:24 PM [facility] CO2 25 21 - 32 mmol/L LAB CHEMISTRY METHOD 07/28/2024 4:24 PM [facility] Anion Gap 5 3 - 11 LAB CHEMISTRY METHOD 07/28/2024 4:24 PM [facility] Glucose 90 70 - 100 mg/dL LAB CHEMISTRY METHOD 07/28/2024 4:24 PM [facility] BUN 31(H) 5 - 25 mg/dL LAB CHEMISTRY METHOD 07/28/2024 4:24 PM [facility] Creatinine 2.20(H) 0.70 - 1.30 mg/dL LAB CHEMISTRY METHOD 07/28/2024 4:24 PM [facility] eGFR 31(L) >=60 mL/min/1. 73m2 LAB CHEMISTRY METHOD 07/28/2024 4:24 PM [facility] Comment:Calculation based on the Chronic Kidney Disease Epidemiology Collaboration (CKD-EPI) equation refit without adjustment for race. BUN/Creatinine Ratio 14.1 LAB CHEMISTRY METHOD 07/28/2024 4:24 PM [facility] Calcium 9.4 8.5 - 10.5 mg/dL LAB CHEMISTRY METHOD 07/28/2024 4:24 PM [facility] AST (SGOT) 18 10 - 42 unit/L LAB CHEMISTRY METHOD 07/28/2024 4:24 PM [facility] ALT (SGPT) 19 10 - 60 unit/L LAB CHEMISTRY METHOD 07/28/2024 4:24 PM [facility] Alkaline Phosphatase 52 42 - 121 unit/L LAB CHEMISTRY METHOD 07/28/2024 4:24 PM EST [facility] Total Protein 6.7 6.0 - 8.0 g/dL LAB CHEMISTRY METHOD 07/28/2024 4:24 PM [facility] Albumin 4.1 3.2 - 5.0 g/dL LAB CHEMISTRY METHOD 07/28/2024 4:24 PM [facility] Total Bilirubin 1.0 0.0 - 1.4 mg/dL LAB CHEMISTRY METHOD 07/28/2024 4:24 PM [facility] Blood Venous blood specimen / Unknown Venipuncture / Unknown 07/28/2024 3:11 PM EST 07/28/2024 3:27 PM EST us Rober Vaughan MD LAB BLOOD ORDERABLES Final Res ult [facility] [address] [place] [address], [place] [phone] * Thyroid stimulating hormone (07/28/2024 3:11 PM EST) TSH 2.25 0.40 - 4.00 mcIU/mL LAB CHEMISTRY METHOD 07/28/2024 4:28 PM [facility] Blood Venous blood specimen / Unknown Venipuncture / Unknown 07/28/2024 3:11 PM EST 07/28/2024 3:27 PM EST us Rober Vaughan MD LAB BLOOD ORDERABLES Final Res ult [facility] [address] [place] [address], [place] [phone] documented in this encounter Visit Diagnoses Diagnosis Postprocedural hypothyroidism Postsurgical hypothyroidism Essential (primary) hypertension Unspecified essential hypertension Encounter for general adult medical examination with abnormal findings Unspecified osteoarthritis, unspecified site documented in this encounter Care Teams Manager Gift Relationship Specialty Start Date End Date Rober Vaughan MD [address] [place] [address] PCP - General Internal Medicine 09/26/24 documented as of this encounter
--- OUTSIDE RECORDS SUMMARY | 2025-02-15 16:52 | XMS_ITS | Clinical Summary ---
Author Organization [facility] Address [address] [place] [phone] Phone Care Team Providers Care Benefits Consultant Name Role Phone Rober Vaughan MD Primary Care Provider [phone] Allergies No known active allergies Medications fenofibrate [...] Office Visit [facility] [address] [phone] Napoleon Mooney MD [address] [phone] Health Maintenance Due Date Last Done Comments Pneumococcal Vaccine: 50+ Ye ars (1 of 2 - PCV) 12/20/1970 Colorectal Cancer Screening: Annual FOBT 12/20/2000 Colorectal Cancer Screening: Colonoscopy 12/20/2000 Colorectal Cancer Screening: Sigmoidoscopy 12/20/2000 Influenza Vaccine (#1) 2025 Hepatitis B Vaccine Aged Out No longe r eligible based on patient's age to complete this topic [place] [address] [place] [address] [facility] Care Teams Benefits Consultant Relationship Specialty Start Date End Date Rober Vaughan MD [address] [place] [phone] PCP - General Internal Medicine 10/21/23
--- OUTSIDE RECORDS SUMMARY | 2025-02-15 16:52 | XMS_ITS | Clinical Summary ---
Author Organization [facility] Address [address] [place] [address] Care Team Providers Care Chairlift Operator Name Role Phone Rober Vaughan MD Primary Care Provider [phone] Allergies No known active allergies Medications Medication [...] age to complete this topic Care Teams Chairlift Operator Relationship Specialty Start Date End Date Rober Vaughan MD PCP - General Internal Medicine 06/11/16
--- OUTSIDE RECORDS SUMMARY | 2025-02-15 16:54 | XMS_ITS | Patient Health Record ---
Author Organization [facility] Address [address] [place] [address] Care Team Providers Care Optimization Specialist Name Role Phone Clement SOTO, Rober Primary Care Provider Unavail able Guy Raines Unavailable [phone] Reason For Referral No Information Medications Medication [...] Status W/U Status Risk Notes Problem Bursitis (14176513) Bursitis (727.3) Active confirmed Problem Hammer toe (936335204) Hammer toe (735.4) Active confirmed Plan Of Treatment Pending Test Test Name Order Date X ray : Foot, right 3V 02/03/2013 Insurance Providers Payer Name Payer Address Payer Phone Subscriber Number Group Number Insured Name Patient Relationship to Insured Coverage Start Date Coverage End Date [facility] [address] [place] [address] [phone] [id number] Hardik Jerry Self - patient is the insured Medical (General) History Medical History History ICD Code measles mumps chicken pox Surgical History Surgery Date(Month/Year) thyroidectomy
--- OUTSIDE RECORDS SUMMARY | 2025-02-15 16:55 | XMS_ITS | Clinical Summary ---
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 Portal vein thrombosis 01/04/2020 Other fatigue 01/04/2020 Stage 3 chronic kidney disease (CMS/HCC V24, CMS /HCC V28) 01/04/2020 Encounters Date Type Department Care Team Description 12/11/2024 Lab Requisition [facility] - Main Lab [address] [facility] [place] [address] Rober Vaughan MD Postprocedural hypothyroidism; Encounter for general adult medical examination without abnormal findings; Essential (primary) hypertension; Mild intermittent asthma, uncomplicated; Unspecified osteoarthritis, unspecified site; Vitamin D deficiency, unspecified; Type 2 diabetes mellitus with hyperglycemia ([facility] V24, [facility] V28) from Last 3 Months Social History [...] Description 05/03/2025 2:30 PM EST Office Visit [facility] Hematology Oncology [address] [place] [address] Nia Browning MD [address] [place] [address] Health Maintenance Due Date Last [...] Vaccine (7 - Pfizer risk 2023- season) 2025 02/13/2024, 04/13/2023, 03/08/2022, Additional history exists Influenza [...] EDT Type 2 diabetes mellitus with hyperglycemia ([facility] V24, [facility] V28) MICROALBUMIN CREATININE URINE RATIO Routine 12/12/2024 [...] LAB CHEMISTRY METHOD 12/12/2024 6:02 PM EDT [facility] Triglycerides 178(H) 0 - 150 mg/dL LAB CHEMISTRY METHOD 12/12/2024 6:02 PM EDT [facility] HDL 41 >=40 mg/dL LAB CHEMISTRY METHOD 12/12/2024 6:02 PM EDT [facility] LDL Calculated 83 0 - 100 mg/dL LAB CHEMISTRY METHOD 12/12/2024 6:02 PM EDT [facility] VLDL Cholesterol Juan A 35.6 mg/dL LAB CHEMISTRY METHOD 12/12/2024 6:02 PM EDT [facility] Non HDL Chol. (LDL+VLDL) 119 <145 mg/dL LAB CHEMISTRY METHOD 12/12/2024 6:02 PM EDT [facility] Chol/HDL Ratio 3.9 0.0 - 4.4 LAB CHEMISTRY METHOD 12/12/2024 6:02 PM EDT [facility] Blood Venous blood specimen / Unknown Venipuncture / Unknown 12/12/2024 2:03 PM EDT 12/12/2024 3:10 PM EDT us Rober Vaughan MD LAB BLOOD ORDERABLES Final Res ult [facility] [address] [place] [address], [place] [phone] * (ABNORMAL) CBC auto differential (12/12/2024 2:03 PM EDT) WBC 8.9 4.8 - 10.8 K/mcL LAB HEMETOLOGY METHOD 12/12/2024 3:54 PM EDT [facility] RBC 5.10 4.50 - 5.50 M/mcL LAB HEMETOLOGY METHOD 12/12/2024 3:54 PM EDT [facility] Hemoglobin 16.1 13.5 - 17.5 g/dL LAB HEMETOLOGY METHOD 12/12/2024 3:54 PM EDT [facility] Hematocrit 50.2 42.0 - 54.0 % LAB HEMETOLOGY METHOD 12/12/2024 3:54 PM EDT [facility] MCV 99.2(H) 79.0 - 98.0 FL LAB HEMETOLOGY METHOD 12/12/2024 3:54 PM EDT [facility] MCH 31.8 27.0 - 32.0 pcg LAB HEMETOLOGY METHOD 12/12/2024 3:54 PM EDT [facility] MCHC 32.1 32.0 - 37.0 g/dL LAB HEMETOLOGY METHOD 12/12/2024 3:54 PM EDT [facility] RDW 13.4 11.0 - 15.0 % LAB HEMETOLOGY METHOD 12/12/2024 3:54 PM EDT [facility] Platelets 509(H) 130 - 400 K/mcL LAB HEMETOLOGY METHOD 12/12/2024 3:54 PM EDT [facility] MPV 9.0 7.0 - 11.0 FL LAB HEMETOLOGY METHOD 12/12/2024 3:54 PM EDT [facility] NRBC 0.0 <1.0 % LAB HEMETOLOGY METHOD 12/12/2024 3:54 PM EDT [facility] NRBC Absolute 0.00 <0.10 K/mcL LAB HEMETOLOGY METHOD 12/12/2024 3:54 PM EDT [facility] Neutrophils Relative 76.5 % LAB HEMETOLOGY METHOD 12/12/2024 3:54 PM EDT [facility] Lymphocytes Relative 12.1 % LAB HEMETOLOGY METHOD 12/12/2024 3:54 PM EDT [facility] Monocytes Relative 7.8 % LAB HEMETOLOGY METHOD 12/12/2024 3:54 PM EDT [facility] Eosinophils Relative 2.0 % LAB HEMETOLOGY METHOD 12/12/2024 3:54 PM EDT [facility] Basophils Relative 1.2 % LAB HEMETOLOGY METHOD 12/12/2024 3:54 PM EDT [facility] Immature Granulocytes Relative 0.4 % LAB HEMETOLOGY METHOD 12/12/2024 3:54 PM EDT [facility] Neutrophils Absolute 6.79 1.50 - 7.00 K/mcL LAB HEMETOLOGY METHOD 12/12/2024 3:54 PM EDT [facility] Lymphocytes Absolute 1.08 1.00 - 5.00 K/mcL LAB HEMETOLOGY METHOD 12/12/2024 3:54 PM EDT [facility] Monocytes Absolute 0.69 0.20 - 1.00 K/mcL LAB HEMETOLOGY METHOD 12/12/2024 3:54 PM EDT [facility] Eosinophils Absolute 0.18 0.00 - 0.50 K/mcL LAB HEMETOLOGY METHOD 12/12/2024 3:54 PM EDT [facility] Basophils Absolute 0.11 0.00 - 0.20 K/mcL LAB HEMETOLOGY METHOD 12/12/2024 3:54 PM EDT [facility] Immature Granulocytes Absolute 0.04(H) 0.00 - 0.03 K/mcL LAB HEMETOLOGY METHOD 12/12/2024 3:54 PM EDT [facility] Blood Venous blood specimen / Unknown Venipuncture / Unknown 12/12/2024 2:03 PM EDT 12/12/2024 3:09 PM EDT us Rober Vaughan MD LAB BLOOD ORDERABLES Final Res ult [facility] [address] [place] [address], [place] [phone] * (ABNORMAL) Microalbumin creatinine urine ratio (12/12/2024 2:03 PM EDT) Creatinine, Urine 291.0 mg/dL LAB CHEMISTRY METHOD 12/12/2024 6:57 PM EDT [facility] Comment:Results verified by repeat testing Microalb, Ur 87.0(H) 0.0 - 29.0 mg/L LAB CHEMISTRY METHOD 12/12/2024 6:57 PM EDT [facility] Microalb/Crea t Ratio 30(H) <30 mg/g creat LAB CHEMISTRY METHOD 12/12/2024 6:57 PM EDT [facility] Urine Urine specimen obtained by clean catch procedure / Unknown Non-blood Collection / Unknown 12/12/2024 2:03 PM EDT 12/12/2024 3:10 PM EDT Rober Vaughan MD LAB URINE ORDERABLES Final Res ult Performing Organization Address [facility]/ZIP Co de Phone Number [facility] [address] [place] [address], [place] [phone] * (ABNORMAL) Vitamin D 25 hydroxy (12/12/2024 2:03 PM EDT) [facility] Vit D, 25-Hydroxy 17.1(L) 30.0 - 80.0 ng/mL LAB CHEMISTRY METHOD 12/12/2024 6:33 PM EDT [facility] Blood Venous blood specimen / Unknown Venipuncture / Unknown 12/12/2024 2:03 PM EDT 12/12/2024 3:10 PM EDT Rober Vaughan MD LAB BLOOD ORDERABLES Final Res ult Performing Organization Address City/[facility]/ZIP Co de Phone Number [facility] [address] [place] [address], [place] [phone] * Sedimentation rate (12/12/2024 2:03 PM EDT) [facility] Sed Rate 7 0 - 20 mm/hr LAB HEMETOLOGY METHOD 12/12/2024 3:28 PM EDT [facility] Blood Venous blood specimen / Unknown Venipuncture / Unknown 12/12/2024 2:03 PM EDT 12/12/2024 3:09 PM EDT Rober Vaughan MD LAB BLOOD ORDERABLES Final Res ult Performing Organization Address City/[facility]/ZIP Co de Phone Number [facility] [address] [place] [address], [place] [phone] * Uric acid (12/12/2024 2:03 PM EDT) [facility] Uric Acid 5.0 3.7 - 9.2 mg/dL LAB CHEMISTRY METHOD 12/12/2024 6:01 PM EDT [facility] Blood Venous blood specimen / Unknown Venipuncture / Unknown 12/12/2024 2:03 PM EDT 12/12/2024 3:10 PM EDT us Rober Vaughan MD LAB BLOOD ORDERABLES Final Res ult Performing Organization Address [facility] Co de Phone Number [facility] [address] [place] [address], [place] [phone] * Thyroid stimulating hormone (12/12/2024 2:03 PM EDT) Pathologist [facility] TSH 2.06 0.40 - 4.00 mcIU/mL LAB CHEMISTRY METHOD 12/12/2024 6:34 PM EDT [facility] Blood Venous blood specimen / Unknown Venipuncture / Unknown 12/12/2024 2:03 PM EDT 12/12/2024 3:10 PM EDT Rober Vaughan MD LAB BLOOD ORDERABLES Final Res ult Performing Organization Address City/[facility]/ZIP Co de Phone Number [facility] [address] [place] [address], [place] [phone] * Hemoglobin A1c (12/12/2024 2:03 PM EDT) [facility] Hemoglobin A1C 5.3 <6.5 % LAB CHEMISTRY METHOD 12/13/2024 11:06 AM EDT [facility] Mean Bld Glu Estim. 105 mg/dL LAB CHEMISTRY METHOD 12/13/2024 11:06 AM EDT [facility] Blood Venous blood specimen / Unknown Venipuncture / Unknown 12/12/2024 2:03 PM EDT 12/12/2024 3:09 PM EDT Rober Vaughan MD LAB BLOOD ORDERABLES Final Res ult [facility] [address] [place] [address], [place] [phone] * (ABNORMAL) Comprehensive metabolic panel (12/12/2024 2:03 PM EDT) [facility] Sodium 140 133 - 145 mmol/L LAB CHEMISTRY METHOD 12/12/2024 6:[address] [facility] Potassium 4.7 3.5 - 5.5 mmol/L LAB CHEMISTRY METHOD 12/12/2024 6:[address] [facility] Chloride 109 96 - 110 mmol/L LAB CHEMISTRY METHOD 12/12/2024 6:[address] [facility] CO2 25 21 - 32 mmol/L LAB CHEMISTRY METHOD 12/12/2024 6:[address] [facility] Anion Gap 6 3 - 11 LAB CHEMISTRY METHOD 12/12/2024 6:[address] [facility] Glucose 71 70 - 100 mg/dL LAB CHEMISTRY METHOD 12/12/2024 6:[address] [facility] BUN 25 5 - 25 mg/dL LAB CHEMISTRY METHOD 12/12/2024 6:[address] [facility] Creatinine 2.22(H) 0.70 - 1.30 mg/dL LAB CHEMISTRY METHOD 12/12/2024 6:[address] [facility] eGFR 31(L) >=60 mL/min/1. 73m2 LAB CHEMISTRY METHOD 12/12/2024 6:[address] [facility] Comment:Calculation based on the Chronic Kidney Disease Epidemiology Collaboration (CKD-EPI) equation refit without adjustment for race. BUN/Creatinine Ratio 11.3 LAB CHEMISTRY METHOD 12/12/2024 6:[address] [facility] Calcium 9.2 8.5 - 10.5 mg/dL LAB CHEMISTRY METHOD 12/12/2024 6:[address] [facility] AST (SGOT) 17 10 - 42 unit/L LAB CHEMISTRY METHOD 12/12/2024 6:[address] [facility] ALT (SGPT) 21 10 - 60 unit/L LAB CHEMISTRY METHOD 12/12/2024 6:[address] [facility] Alkaline Phosphatase 57 42 - 121 unit/L LAB CHEMISTRY METHOD 12/12/2024 6:[address] [facility] Total Protein 6.7 6.0 - 8.0 g/dL LAB CHEMISTRY METHOD 12/12/2024 6:[address] [facility] Albumin 4.1 3.2 - 5.0 g/dL LAB CHEMISTRY METHOD 12/12/2024 6:[address] [facility] Total Bilirubin 1.0 0.0 - 1.4 mg/dL LAB CHEMISTRY METHOD 12/12/2024 6:[address] [facility] Blood Venous blood specimen / Unknown Venipuncture / Unknown 12/12/2024 2:03 PM EDT 12/12/2024 3:10 PM EDT us Rober Vaughan MD LAB BLOOD ORDERABLES Final Res ult [facility] H[facility] LAB [address] [place] [address], from Last 3 Months Insurance [employer] - [place] MEDICARE ADVANTAGE Care Teams As400 Analyst Relationship Specialty Start Date End Date Rober Vaughan MD [address] [place] [address] PCP - General Internal Medicine 09/26/24
--- OUTSIDE RECORDS SUMMARY | 2025-02-15 16:55 | XMS_ITS | Encounter Summary ---
Author Organization [facility] Address [address] [place] [address] Care Team Providers Care Material Expeditor Name Role Phone Rober Vaughan MD Primary Care Provider [phone] Encounter Details Date Type Department Care Team (Latest Contact Info) Description 12/11/2024 Lab Requisition [facility] - Main Lab [address] [place] [address] Rober Vaughan MD [address] [place] [address] Postprocedural hypothyroidism; Encounter for general adult medical examination without abnormal findings; Essential (primary) hypertension; Mild intermittent asthma, uncomplicated; Unspecified osteoarthritis, unspecified site; Vitamin D deficiency, unspecified; Type 2 diabetes mellitus with hyperglycemia ([facility] V24, [facility] V28) Social History Tobacco Use Types Packs/Day [...] Description 05/03/2025 2:30 PM EST Office Visit [facility] Hematology Oncology [address] [place] [address] Nia Browning MD [address] [place] [address] documented as of this encounter Procedures Procedure [...] EDT Type 2 diabetes mellitus with hyperglycemia (CMS/[facility] V24, [facility] V28) COMPREHENSIVE METABOLIC PANEL Routine 12/12/2024 2:03 PM EDT Essential (primary) hypertension documented in this encounter Results * (ABNORMAL) CBC auto differential (12/12/2024 2:03 PM EDT) WBC 8.9 4.8 - 10.8 K/mcL LAB HEMETOLOGY METHOD 12/12/2024 3:[address] [facility] RBC 5.10 4.50 - 5.50 M/mcL LAB HEMETOLOGY METHOD 12/12/2024 3:[address] [facility] Hemoglobin 16.1 13.5 - 17.5 g/dL LAB HEMETOLOGY METHOD 12/12/2024 3:[address] [facility] Hematocrit 50.2 42.0 - 54.0 % LAB HEMETOLOGY METHOD 12/12[facility]24 [facility] MCV 99.2(H) 79.0 - 98.0 FL LAB HEMETOLOGY METHOD 12/12/2024 3:[address] [facility] MCH 31.8 27.0 - 32.0 pcg LAB HEMETOLOGY METHOD 12/12/2024 3[facility] MCHC 32.1 32.0 - 37.0 g/dL LAB HEMETOLOGY METHOD 12/12/2024 3:[facility] RDW 13.4 11.0 - 15.0 % LAB HEMETOLOGY METHOD 12/12/2024 3:[address] [facility] Platelets 509(H) 130 - 400 K/mcL LAB HEMETOLOGY METHOD 12/12/2024 3:[facility] MPV 9.0 7.0 - 11.0 FL LAB HEMETOLOGY METHOD 12/12/2024 3:[facility] NRBC 0.0 <1.0 % LAB HEMETOLOGY METHOD 12/12/2024 3:[address] [facility] NRBC Absolute 0.00 <0.10 K/mcL LAB HEMETOLOGY METHOD 12/12/2024 3:[facility] Neutrophils Relative 76.5 % LAB HEMETOLOGY METHOD 12/12/2024 3:[facility] Lymphocytes Relative 12.1 % LAB HEMETOLOGY METHOD 12/12/2024 3:[address] [facility] Monocytes Relative 7.8 % LAB HEMETOLOGY METHOD 12/12/2024 3:[address] [facility] Eosinophils Relative 2.0 % LAB HEMETOLOGY METHOD 12/12/2024 3:[address] [facility] Basophils Relative 1.2 % LAB HEMETOLOGY METHOD 12/12/2024 3:[address] [facility] Immature Granulocytes Relative 0.4 % LAB HEMETOLOGY METHOD 12/12/2024 3:[address] [facility] Neutrophils Absolute 6.79 1.50 - 7.00 K/mcL LAB HEMETOLOGY METHOD 12/12/2024 3:[address] [facility] Lymphocytes Absolute 1.08 1.00 - 5.00 K/mcL LAB HEMETOLOGY METHOD 12/12/2024 3:[address] [facility] Monocytes Absolute 0.69 0.20 - 1.00 K/mcL LAB HEMETOLOGY METHOD 12/12/2024 3:[address] [facility] Eosinophils Absolute 0.18 0.00 - 0.50 K/mcL LAB HEMETOLOGY METHOD 12/12/2024 3:[address] [facility] Basophils Absolute 0.11 0.00 - 0.20 K/mcL LAB HEMETOLOGY METHOD 12/12/2024 3:[address] [facility] Immature Granulocytes Absolute 0.04(H) 0.00 - 0.03 K/mcL LAB HEMETOLOGY METHOD 12/12/2024 3:[address] [facility] Blood Venous blood specimen / Unknown Venipuncture / Unknown 12/12/2024 2:03 PM EDT 12/12/2024 3:09 PM EDT us Rober Vaughan MD LAB BLOOD ORDERABLES Final Res ult [facility] [address] [place] [address], [place] [phone] * Hemoglobin A1c (12/12/2024 2:03 PM EDT) Hemoglobin A1C 5.3 <6.5 % LAB CHEMISTRY METHOD 12/13/2024 11:[address] [facility] Mean Bld Glu Estim. 105 mg/dL LAB CHEMISTRY METHOD 12/13/2024 11:[address] [facility] Blood Venous blood specimen / Unknown Venipuncture / Unknown 12/12/2024 2:03 PM EDT 12/12/2024 3:09 PM EDT us Rober Vaughan MD LAB BLOOD ORDERABLES Final Res ult [facility] [address] [place] [address], [place] [phone] * (ABNORMAL) Microalbumin creatinine urine ratio (12/12/2024 2:03 PM EDT) Pathologist [facility] Creatinine, Urine 291.0 mg/dL LAB CHEMISTRY METHOD 12/12/2024 6:[address] [facility] Comment:Results verified by repeat testing Microalb, Ur 87.0(H) 0.0 - 29.0 mg/L LAB CHEMISTRY METHOD 12/12/2024 6:[address] [facility] Microalb/Crea t Ratio 30(H) <30 mg/g creat LAB CHEMISTRY METHOD 12/12/2024 6:[address] [facility] Urine Urine specimen obtained by clean catch procedure / Unknown Non-blood Collection / Unknown 12/12/2024 2:03 PM EDT 12/12/2024 3:10 PM EDT Rober Vaughan MD LAB URINE ORDERABLES Final Res ult Performing Organization Address [facility]/ZIP Co de Phone Number [facility] [address] [place] [address], [place] [phone] * (ABNORMAL) Vitamin D 25 hydroxy (12/12/2024 2:03 PM EDT) [facility] Vit D, 25-Hydroxy 17.1(L) 30.0 - 80.0 ng/mL LAB CHEMISTRY METHOD 12/12/2024 6:[address] [facility] Blood Venous blood specimen / Unknown Venipuncture / Unknown 12/12/2024 2:03 PM EDT 12/12/2024 3:10 PM EDT Rober Vaughan MD LAB BLOOD ORDERABLES Final Res ult Performing Organization Address [facility]/ZIP Co de Phone Number [facility] [address] [place] [address], [place] [phone] * (ABNORMAL) Lipid panel with reflex to direct LDL (12/12/2024 2:03 PM EDT) [facility] Cholesterol 160 0 - 200 mg/dL LAB CHEMISTRY METHOD 12/12/2024 6:[address] [facility] Triglycerides 178(H) 0 - 150 mg/dL LAB CHEMISTRY METHOD 12/12/2024 6:[address] [facility] HDL 41 >=40 mg/dL LAB CHEMISTRY METHOD 12/12/2024 6:[address] [facility] LDL Calculated 83 0 - 100 mg/dL LAB CHEMISTRY METHOD 12/12/2024 6:[address] [facility] VLDL Cholesterol Juan A 35.6 mg/dL LAB CHEMISTRY METHOD 12/12/2024 6:[address] [facility] Non HDL Chol. (LDL+VLDL) 119 <145 mg/dL LAB CHEMISTRY METHOD 12/12/2024 6:[address] [facility] Chol/HDL Ratio 3.9 0.0 - 4.4 LAB CHEMISTRY METHOD 12/12/2024 6:[address] [facility] Blood Venous blood specimen / Unknown Venipuncture / Unknown 12/12/2024 2:03 PM EDT 12/12/2024 3:10 PM EDT Rober Vaughan MD LAB BLOOD ORDERABLES Final Res ult [facility] [address] [place] [address], [place] [phone] * Sedimentation rate (12/12/2024 2:03 PM EDT) Sed Rate 7 0 - 20 mm/hr LAB HEMETOLOGY METHOD 12/12/2024 3:[address] [facility] Blood Venous blood specimen / Unknown Venipuncture / Unknown 12/12/2024 2:03 PM EDT 12/12/2024 3:09 PM EDT Rober Vaughan MD LAB BLOOD ORDERABLES Final Res ult Performing Organization Address [facility]/ZIP Co de Phone Number [facility] [address] [place] [address], [place] [phone] * (ABNORMAL) Comprehensive metabolic panel (12/12/2024 2:03 PM EDT) Sodium 140 133 - 145 mmol/L LAB CHEMISTRY METHOD 12/12/2024 6:[address] [facility] Potassium 4.7 3.5 - 5.5 mmol/L LAB CHEMISTRY METHOD 12/12/2024 6:[address] [facility] Chloride 109 96 - 110 mmol/L LAB CHEMISTRY METHOD 12/12/2024 6:[address] [facility] CO2 25 21 - 32 mmol/L LAB CHEMISTRY METHOD 12/12/2024 6:02 PM [facility] Anion Gap 6 3 - 11 LAB CHEMISTRY METHOD 12/12/2024 6:02 PM [facility] Glucose 71 70 - 100 mg/dL LAB CHEMISTRY METHOD 12/12/2024 6:02 PM [facility] BUN 25 5 - 25 mg/dL LAB CHEMISTRY METHOD 12/12/2024 6:02 PM [facility] Creatinine 2.22(H) 0.70 - 1.30 mg/dL LAB CHEMISTRY METHOD 12/12/2024 6:02 PM [facility] eGFR 31(L) >=60 mL/min/1. 73m2 LAB CHEMISTRY METHOD 12/12/2024 6:02 PM [facility] Comment:Calculation based on the Chronic Kidney Disease Epidemiology Collaboration (CKD-EPI) equation refit without adjustment for race. BUN/Creatinine Ratio 11.3 LAB CHEMISTRY METHOD 12/12/2024 6:02 PM [facility] Calcium 9.2 8.5 - 10.5 mg/dL LAB CHEMISTRY METHOD 12/12/2024 6:02 PM [facility] AST (SGOT) 17 10 - 42 unit/L LAB CHEMISTRY METHOD 12/12/2024 6:02 PM [facility] ALT (SGPT) 21 10 - 60 unit/L LAB CHEMISTRY METHOD 12/12/2024 6:02 PM [facility] Alkaline Phosphatase 57 42 - 121 unit/L LAB CHEMISTRY METHOD 12/12/2024 6:02 PM [facility] Total Protein 6.7 6.0 - 8.0 g/dL LAB CHEMISTRY METHOD 12/12/2024 6:02 PM [facility] Albumin 4.1 3.2 - 5.0 g/dL LAB CHEMISTRY METHOD 12/12/2024 6:02 PM [facility] Total Bilirubin 1.0 0.0 - 1.4 mg/dL LAB CHEMISTRY METHOD 12/12/2024 6:[address] [facility] Blood Venous blood specimen / Unknown Venipuncture / Unknown 12/12/2024 2:03 PM EDT 12/12/2024 3:10 PM EDT Rober Vaughan MD LAB BLOOD ORDERABLES Final Res ult Performing Organization Address City/[facility]/ZIP Co de Phone Number [facility] [address] [place] [address], [place] [phone] * Uric acid (12/12/2024 2:03 PM EDT) [facility] Uric Acid 5.0 3.7 - 9.2 mg/dL LAB CHEMISTRY METHOD 12/12/2024 6:[address] [facility] Blood Venous blood specimen / Unknown Venipuncture / Unknown 12/12/2024 2:03 PM EDT 12/12/2024 3:10 PM EDT Rober Vaughan MD LAB BLOOD ORDERABLES Final Res ult Performing Organization Address [facility] Co de Phone Number [facility] [address] [place] [address], [place] [phone] * Thyroid stimulating hormone (12/12/2024 2:03 PM EDT) [facility] TSH 2.06 0.40 - 4.00 mcIU/mL LAB CHEMISTRY METHOD 12/12/2024 6:[address] [facility] Blood Venous blood specimen / Unknown Venipuncture / Unknown 12/12/2024 2:03 PM EDT 12/12/2024 3:10 PM EDT Rober Vaughan MD LAB BLOOD ORDERABLES Final Res ult Performing Organization Address City/[facility]/ZIP Co de Phone Number [facility] [address] [place] [address], documented in this encounter Visit Diagnoses Diagnosis Postprocedural hypothyroidism Postsurgical hypothyroidism Encounter for general adult medical examination without abnormal findings Essential (primary) hypertension Unspecified essential hypertension Mild intermittent asthma, uncomplicated Unspecified osteoarthritis, unspecified site Vitamin D deficiency, unspecified Type 2 diabetes mellitus with hyperglycemia (CMS/[facility] V24, CMS/[facility] V28) documented in this encounter Care Teams Material Expeditor Relationship Specialty Start Date End Date Rober Vaughan MD [address] [place] [address] PCP - General Internal Medicine 09/26/24 documented as of this encounter
== END 2025-02-15 14:30 | disposition home or self-care (01) ==
LOC: HO.ACS 14:11
PROVIDERS: PCP Internal Medicine; Visit Provider Internal Medicine Medical Oncology
DX: Z79.01 Long term (current) use of anticoagulants (principal)

== ENCOUNTER → 2025-02-15 14:11 | Outpatient (BNVA) | payer MEDICARE, SELFPAY | PROVIDERS: PCP Internal Medicine; Visit Provider Internal Medicine Medical Oncology | DX: D73.5 Infarction of spleen (principal); Z79.01 Long term (current) use of anticoagulants; Z51.81 Encounter for therapeutic drug level monitoring | CPT/HCPCS: 85610; 99211 ==

== ENCOUNTER 2025-03-22 14:20 | Outpatient (AMB) | payer MEDICARE, SELFPAY ==
--- NOTE | 2025-03-22 14:31 | MHC.OFFVISCO ---
Intake Intake Visit Reasons: Anticoagulation Allergies No Known Allergies Allergy (Verified 03/22/25 14:25) Medication List - Last Reconciled 03/22/25 by Mary Santa RN allopurinol 150 mg PO DAILY fenofibrate 54 mg PO DAILY gabapentin 100 mg PO DAILY PRN hydroxyurea 500 mg PO DAILY losartan 100 mg PO DAILY warfarin 1 mg See Protocol PO DAILY Nursing Note INR: 2.6- in therapeutic range 2-3 Medications and supplements reviewed- no changes No changes in health, diet, medications, or supplements, Denies any signs and symptoms of bleeding or bruising or clotting. Bleeding, bruising, clotting discussed Nutritional guidance given Dose: 1mg x 6, 0.5mg x 1 F/U INR: 4 weeks Patient verbalizes understanding of instructions given Coding Level of Care Code Est Patient Level 1 Diagnoses Current use of anticoagulant therapy Z79.01 Results AMB INR Fingerstick AMB INR Fingerstick 2.6 Last Edit by Mary Santa RN on 03/22/25 14:33 interface delay Assessment & Plan Assessment & Plan (1) Current use of anticoagulant therapy: Code(s): Z79.01 - intermediate manager (current) use of anticoagulants Category: Medical
[2025-03-22 14:33] LABS: Prothrombin Time Whole Bld POC 30.9 sec (11.1-13.5); ~PT, ~INR - Anti Coag Clinic 2.6 (0.9-1.1)
--- OUTSIDE RECORDS SUMMARY | 2025-03-22 18:30 | XMS_ITS | Encounter Summary ---
Author Organization [facility] Address [address] [place] [address] Care Team Providers Care Plastic Outfitter Name Role Phone Rober Vaughan MD Primary Care Provider [phone] Encounter Details Date Type Department Care Team (Latest Contact Info) Description 07/26/2024 Lab Requisition [facility] - Main Lab [address] [facility] [address] Rober Vaughan MD [address] [place] [address] Postprocedural hypothyroidism; Essential (primary) hypertension; Encounter for [...] Description 05/03/2025 2:30 PM EST Office Visit [facility] Hematology Oncology [address] [place] [address] Nia Browning MD [address] [place] [address] documented as of this encounter [...] Res ult [facility] [address] [place] [address], [place] [phone] * (ABNORMAL) Complete blood count (07/28/2024 3:11 [...] % LAB HEMETOLOGY METHOD 07/28/2024 3:[address] [facility] Platelets 410(H) 130 - 400 [...] Res ult [facility] [address] [place] [address], [place] [phone] * (ABNORMAL) Comprehensive metabolic panel (07/28/2024 3:11 PM EST) Sodium 137 133 - 145 mmol/L LAB CHEMISTRY METHOD 07/28/2024 4:[address] [facility] Potassium 4.5 3.5 - 5.5 mmol/L LAB CHEMISTRY METHOD 07/28/2024 4:[address] [facility] Chloride 107 96 - 110 mmol/L LAB CHEMISTRY METHOD 07/28/2024 4:[address] [facility] CO2 25 21 - 32 mmol/L LAB CHEMISTRY METHOD 07/28/2024 4:[address] [facility] Anion Gap 5 3 - 11 LAB CHEMISTRY METHOD 07/28/2024 4:[address] [facility] Glucose 90 70 - 100 mg/dL LAB CHEMISTRY METHOD 07/28/2024 4:[address] [facility] BUN 31(H) 5 - 25 mg/dL LAB CHEMISTRY METHOD 07/28/2024 4:[address] [facility] Creatinine 2.20(H) 0.70 - 1.30 mg/dL LAB CHEMISTRY METHOD 07/28/2024 4:[address] [facility] eGFR 31(L) >=60 mL/min/1. 73m2 LAB CHEMISTRY METHOD 07/28/2024 4:[address] [facility] Comment:Calculation based on the Chronic Kidney Disease Epidemiology Collaboration (CKD-EPI) equation refit without adjustment for race. BUN/Creatinine Ratio 14.1 LAB CHEMISTRY METHOD 07/28/2024 4:[address] [facility] Calcium 9.4 8.5 - 10.5 mg/dL LAB CHEMISTRY METHOD 07/28/2024 4:[address] [facility] AST (SGOT) 18 10 - 42 unit/L LAB CHEMISTRY METHOD 07/28/2024 4:[address] [facility] ALT (SGPT) 19 10 - 60 unit/L LAB CHEMISTRY METHOD 07/28/2024 4:[address] [facility] Alkaline Phosphatase 52 42 - 121 unit/L LAB CHEMISTRY METHOD 07/28/2024 4:24 PM EST [facility] Total Protein 6.7 6.0 - 8.0 g/dL LAB CHEMISTRY METHOD 07/28/2024 4:[address] [facility] Albumin 4.1 3.2 - 5.0 g/dL LAB CHEMISTRY METHOD 07/28/2024 4:[address] [facility] Total Bilirubin 1.0 0.0 - 1.4 mg/dL LAB CHEMISTRY METHOD 07/28/2024 4:[address] [facility] Blood Venous blood specimen / Unknown Venipuncture / Unknown 07/28/2024 3:11 PM EST 07/28/2024 3:27 PM EST us Rober Vaughan MD LAB BLOOD ORDERABLES Final Res ult [facility] [address] [place] [address], [place] [phone] * Thyroid stimulating hormone (07/28/2024 3:11 PM EST) TSH 2.25 0.40 - 4.00 mcIU/mL LAB CHEMISTRY METHOD 07/28/2024 4:[address] [facility] Blood Venous blood specimen / Unknown Venipuncture / Unknown 07/28/2024 3:11 PM EST 07/28/2024 3:27 PM EST us Rober Vaughan MD LAB BLOOD ORDERABLES Final Res ult [facility] [address] [place] [address], [place] [phone] documented in this encounter Visit Diagnoses Diagnosis Postprocedural hypothyroidism Postsurgical hypothyroidism Essential (primary) hypertension Unspecified essential hypertension Encounter for general adult medical examination with abnormal findings Unspecified osteoarthritis, unspecified site documented in this encounter Care Teams Plastic Outfitter Relationship Specialty Start Date End Date Rober Vaughan MD [address] [place] [address] PCP - General Internal Medicine 09/26/24 documented as of this encounter
--- OUTSIDE RECORDS SUMMARY | 2025-03-22 18:32 | XMS_ITS | Clinical Summary ---
Author Organization [facility] Address [address] [place] [phone] Phone Care Team Providers Care Whitewater Rafting Guide Name Role Phone Rober Vaughan MD Primary Care Provider [phone] Allergies No known active allergies Medications fenofibrate [...] Department Care Team (Latest Contact Info) Description 04/06/2025 8:20 AM EST Office Visit [facility] [address] [place] [phone] Napoleon Mooney MD [address] [phone] 04/08/2025 Orders Only [facility] [address] [phone] Napoleon Mooney MD [address] [phone] Stage 3a chronic kidney disease (HCC); Hypertension; Essential thrombocytosis (HCC); Other obesity; Benign prostatic hyperplasia; Thrombosis of mesenteric vein (HCC); Cyst of kidney; Hypercalcemia Health Maintenance Due Date Last Done Comments Pneumococcal Vaccine: 50+ Years (1 of 2 - PCV) 12/20/1970 Colorectal Cancer Screening: Annual FOBT 12/20/2000 Colorectal Cancer Screening: Colonoscopy 12/20/2000 Colorectal Cancer Screening: Sigmoidoscopy 12/20/2000 Influenza Vaccine (#1) 2025 Diabetes: Ophthalmology Exam 03/09/2025 Diabetes: Pedal Pulse Checked 03/09/2025 Diabetes: Sensory Foot Exam 03/09/2025 Diabetes: Visual Foot Exam 03/09/2025 Diabetes: Hemoglobin A1C 03/14/2025 025, 12/12/2024 Hepatitis B Vaccine Aged Out No longe r eligible based on patient's age to complete this topic Insurance Care Teams Whitewater Rafting Guide Relationship Specialty Start Date End Date Rober Vaughan MD [address] [place] [phone] PCP - General Internal Medicine 10/21/23
--- OUTSIDE RECORDS SUMMARY | 2025-03-22 18:34 | XMS_ITS | Clinical Summary ---
Author Organization [facility] Address [address] [place] [address] Care Team Providers Care Travel Agent Name Role Phone Rober Vaughan MD Primary Care Provider [phone] Allergies No known active allergies Medications Medication [...] age to complete this topic Care Teams Travel Agent Relationship Specialty Start Date End Date Rober Vaughan MD PCP - General Internal Medicine 06/11/16
--- OUTSIDE RECORDS SUMMARY | 2025-03-22 18:36 | XMS_ITS | Patient Health Record ---
Author Organization [facility] Address [address] [place] [address] Care Team Providers Care Hospital Tray Service Worker Name Role Phone Clement SOTO, Rober Primary Care Provider Unavail able Guy Raines Unavailable [phone] Reason For Referral No Information Medications Medication [...] Status W/U Status Risk Notes Problem Bursitis (07434849) Bursitis (727.3) Active confirmed Problem Hammer toe (148463577) Hammer toe (735.4) Active confirmed Plan Of Treatment Pending Test Test Name Order Date X ray : Foot, right 3V 02/03/2013 Insurance Providers Payer Name Payer Address Payer Phone Subscriber Number Group Number Insured Name Patient Relationship to Insured Coverage Start Date Coverage End Date [facility] [address] [place] [address] [phone] [id number] Hardik Jerry Self - patient is the insured Medical (General) History Medical History History ICD Code measles mumps chicken pox Surgical History Surgery Date(Month/Year) thyroidectomy
--- OUTSIDE RECORDS SUMMARY | 2025-03-22 18:37 | XMS_ITS | Encounter Summary ---
Author Organization [facility] Address [address] [place] [address] Care Team Providers Care Bed And Breakfast Operator Name Role Phone Rober Vaughan MD Primary Care Provider [phone] Encounter Details Date Type Department Care Team (Latest Contact Info) Description 12/11/2024 Lab Requisition [facility] - Main Lab [address] [place] [address] Rober Vaughan MD [address] [place] [address] Postprocedural hypothyroidism; Encounter for general adult medical examination without abnormal findings; Essential (primary) hypertension; Mild intermittent asthma, uncomplicated; Unspecified osteoarthritis, unspecified site; Vitamin D deficiency, unspecified; Type 2 diabetes mellitus with hyperglycemia ([facility] V24, [facility] V28) Social History Tobacco Use [...] Description 05/03/2025 2:30 PM EST Office Visit Hematology Oncology [address] [place] [address] Nia Browning MD [address] [place] [address] documented as of this encounter Procedures Procedure [...] EDT Type 2 diabetes mellitus with hyperglycemia ([facility] V24, [facility] V28) COMPREHENSIVE METABOLIC PANEL Routine [...] % LAB HEMETOLOGY [facility] MCV 99.2(H) 79.0 - 98.0 FL LAB HEMETOLOGY METHOD 12/12/2024 3:[address] [facility] MCH 31.8 27.0 - 32.0 pcg LAB HEMETOLOGY METHOD 12/12/2024 3:54 [facility] MCHC 32.1 32.0 - 37.0 g/dL LAB HEMETOLOGY METHOD 12/12/2024 3:54 [facility] RDW 13.4 11.0 - 15.0 % LAB HEMETOLOGY METHOD 12/12/2024 3:[address] [facility] Platelets 509(H) 130 - 400 K/mcL LAB HEMETOLOGY METHOD 12/12/2024 3:54 [facility] MPV 9.0 7.0 - 11.0 FL LAB HEMETOLOGY METHOD 12/12/2024 3:54 [facility] NRBC 0.0 <1.0 % LAB HEMETOLOGY METHOD 12/12/2024 3:[address] [facility] NRBC Absolute 0.00 <0.10 K/mcL LAB HEMETOLOGY METHOD 12/12/2024 3:54 [facility] Neutrophils Relative 76.5 % LAB HEMETOLOGY METHOD 12/12/2024 3:54 [facility] Lymphocytes Relative 12.1 % LAB [...] Res ult [facility] [address] [place] [address], [place] [phone] * Hemoglobin A1c (12/12/2024 2:03 PM EDT) [...] Res ult [facility] [address] [place] [address], [place] [phone] * (ABNORMAL) Microalbumin creatinine urine ratio (12/12/2024 [...] Organization Address [facility]/ZIP Co de Phone Number [facility] [address] [place] [address], [place] [phone] * (ABNORMAL) Vitamin D 25 hydroxy (12/12/2024 2:03 PM EDT) [facility] Vit D, 25-Hydroxy 17.1(L) 30.0 - 80.0 ng/mL LAB CHEMISTRY METHOD 12/12/2024 6:[address] [facility] Blood Venous blood specimen / Unknown Venipuncture / Unknown 12/12/2024 2:03 PM EDT 12/12/2024 3:10 PM EDT Rober Vaughan MD LAB BLOOD ORDERABLES Final Res ult Performing Organization Address [facility]/ZIP Co de Phone Number [facility] [address] [place] [address], [place] [phone] * (ABNORMAL) Lipid panel with reflex to direct LDL (12/12/2024 2:03 PM EDT) [facility] Cholesterol 160 0 - 200 mg/dL LAB [...] Res ult [facility] [address] [place] [address], [place] [phone] * Sedimentation rate (12/12/2024 2:03 PM EDT) Sed Rate 7 0 - 20 mm/hr LAB HEMETOLOGY METHOD 12/12/2024 3:[address] [facility] Blood Venous blood specimen / Unknown Venipuncture / Unknown 12/12/2024 2:03 PM EDT 12/12/2024 3:09 PM EDT Rober Vaughan MD LAB BLOOD ORDERABLES Final Res ult Performing Organization Address [facility]/ZIP Co de Phone Number [facility] [address] [place] [address], [place] [phone] * (ABNORMAL) Comprehensive metabolic panel (12/12/2024 2:03 [...] mmol/L LAB CHEMISTRY METHOD 12/12/2024 6:02 PM [facility] Anion Gap 6 3 - 11 LAB CHEMISTRY METHOD 12/12/2024 6:02 PM [facility] Glucose 71 70 - 100 mg/dL LAB CHEMISTRY METHOD 12/12/2024 6:02 PM [facility] BUN 25 5 - 25 mg/dL LAB CHEMISTRY METHOD 12/12/2024 6:02 PM [facility] Creatinine 2.22(H) 0.70 - 1.30 mg/dL LAB CHEMISTRY METHOD 12/12/2024 6:02 PM [facility] eGFR 31(L) >=60 mL/min/1. 73m2 LAB CHEMISTRY METHOD 12/12/2024 6:02 PM [facility] Comment:Calculation based on the Chronic Kidney Disease Epidemiology Collaboration (CKD-EPI) equation refit without adjustment for race. BUN/Creatinine Ratio 11.3 LAB CHEMISTRY METHOD 12/12/2024 6:02 PM [facility] Calcium 9.2 8.5 - 10.5 mg/dL LAB CHEMISTRY METHOD 12/12/2024 6:02 PM [facility] AST (SGOT) 17 10 - 42 unit/L LAB CHEMISTRY METHOD 12/12/2024 6:02 PM [facility] ALT (SGPT) 21 10 - 60 unit/L LAB CHEMISTRY METHOD 12/12/2024 6:02 PM [facility] Alkaline Phosphatase 57 42 - 121 unit/L LAB CHEMISTRY METHOD 12/12/2024 6:02 PM [facility] Total Protein 6.7 6.0 - 8.0 g/dL LAB CHEMISTRY METHOD 12/12/2024 6:02 PM [facility] Albumin 4.1 3.2 - 5.0 g/dL LAB CHEMISTRY METHOD 12/12/2024 6:02 PM [facility] Total Bilirubin 1.0 0.0 - 1.4 mg/dL LAB CHEMISTRY METHOD 12/12/2024 6:[address] [facility] Blood Venous blood specimen / Unknown Venipuncture / Unknown 12/12/2024 2:03 PM EDT 12/12/2024 3:10 PM EDT Rober Vaughan MD LAB BLOOD ORDERABLES Final Res ult Performing Organization Address City/[facility]/ZIP Co de Phone Number [facility] [address] [place] [address], [place] [phone] * Uric acid (12/12/2024 2:03 PM EDT) [facility] Uric Acid 5.0 3.7 - 9.2 mg/dL LAB CHEMISTRY METHOD 12/12/2024 6:[address] [facility] Blood Venous blood specimen / Unknown Venipuncture / Unknown 12/12/2024 2:03 PM EDT 12/12/2024 3:10 PM EDT Rober Vaughan MD LAB BLOOD ORDERABLES Final Res ult Performing Organization Address [facility] Co de Phone Number [facility] [address] [place] [address], [place] [phone] * Thyroid stimulating hormone (12/12/2024 2:03 PM EDT) [facility] TSH 2.06 0.40 - 4.00 mcIU/mL LAB CHEMISTRY METHOD 12/12/2024 6:[address] [facility] Blood Venous blood specimen / Unknown Venipuncture / Unknown 12/12/2024 2:03 PM EDT 12/12/2024 3:10 PM EDT Rober Vaughan MD LAB BLOOD ORDERABLES Final Res ult Performing Organization Address City/[facility]/ZIP Co de Phone Number [facility]) HOSPITAL LAB [address] [place] [address], documented in this encounter Visit Diagnoses Diagnosis Postprocedural hypothyroidism Postsurgical hypothyroidism Encounter for general adult medical examination without abnormal findings Essential (primary) hypertension Unspecified essential hypertension Mild intermittent asthma, uncomplicated Unspecified osteoarthritis, unspecified site Vitamin D deficiency, unspecified Type 2 diabetes mellitus with hyperglycemia ([facility] V24, [facility] V28) documented in this encounter Care Teams Bed And Breakfast Operator Relationship Specialty Start Date End Date Rober Vaughan MD [address] [place] [address] PCP - General Internal Medicine 09/26/24 documented as of this encounter
--- OUTSIDE RECORDS SUMMARY | 2025-03-22 18:38 | XMS_ITS | Clinical Summary ---
Author Organization [facility] Address [address] [place] [address] Phone Care Team Providers Care Production Supply Equipment Tender Name Role Phone Rober Vaughan MD Primary Care Provider [phone] Allergies No known active allergies Medications allopurinoL [...] disease (CMS/HCC V24, CMS /HCC V28) 01/04/2020 Social History Tobacco Use Types Packs/Day [...] Description 05/03/2025 2:30 PM EST Office Visit [facility] Hematology Oncology [address] [place] [phone] Nia Browning MD [address] [place] [phone] Health Maintenance Due Date Last Done Comments Colorectal Cancer Screening: Colonoscopy 1950 DTaP,Tdap,and Td Vaccines (1 - Tdap) 12/20/1970 Pneumococcal Vaccine: 50+ Years (1 of 2 - PCV) 12/20/1970 Zoster Vaccines (1 of 2) 12/20/1970 RSV Immunization Adult Patients (1 - Risk 50-74 years 1-dose series) 12/20/2001 Falls Risk Assessment 05/02/2022 Hepatitis C Screening 05/02/2022 Medicare Annual Wellness Visit 05/02/2022 Social Influencers of Health Screening 05/02/2022 Depression Screening 05/25/2024 COVID-19 Vaccine (7 - Pfizer risk season) 2025 02/13/2024, 04/13/2023, 03/08/2022, Additional history exists Influenza Vaccine (#1) 2025 , 04/13/2023, 04/05/2022, Additional history exists Hypertension/CHF/CAD Annual BMP Blood [...] Procedure Name Priority Date/Time Associated Diagnosis Comments COMPREHENSIVE METABOLIC PANEL Routine 12/12/2024 2:03 PM EDT Essential (primary) hypertension LIPID PANEL WITH REFLEX TO DIRECT LDL Routine 12/12/2024 2:03 PM EDT Encounter for general adult medical examination without abnormal findings from Last 3 Months or Most Recently Relevant to Health Maintenance Results * (ABNORMAL) Lipid panel with reflex to direct LDL (12/12/2024 2:03 PM EDT) Cholesterol 160 0 - 200 mg/dL LAB CHEMISTRY METHOD 12/12/2024 6:02 PM EDT [facility] Triglycerides 178(H) 0 - 150 mg/dL LAB CHEMISTRY METHOD 12/12/2024 6:02 PM EDT [facility] HDL 41 >=40 mg/dL LAB CHEMISTRY METHOD 12/12/2024 6:02 PM EDT [facility] LDL Calculated 83 0 - 100 mg/dL LAB CHEMISTRY METHOD 12/12/2024 6:02 PM EDT [facility] VLDL Cholesterol Juan A 35.6 mg/dL LAB CHEMISTRY METHOD [facility]24 [facility] Non HDL Chol. (LDL+VLDL) 119 <145 mg/dL LAB CHEMISTRY METHOD 12/12/2024 6:02 PM EDT [facility] Chol/HDL Ratio 3.9 0.0 - 4.4 LAB CHEMISTRY METHOD 12/12/2024 6:02 PM [facility] Blood Venous blood specimen / Unknown Venipuncture / Unknown 12/12/2024 2:03 PM EDT 12/12/2024 3:10 PM EDT us Rober Vaughan MD LAB BLOOD ORDERABLES Final Res ult [facility] [address] [place] [address], [place] [phone] * (ABNORMAL) Comprehensive metabolic panel (12/12/2024 2:03 PM EDT) Sodium 140 133 - 145 mmol/L LAB CHEMISTRY METHOD 12/12/2024 6:02 PM T [facility] Potassium 4.7 3.5 - 5.5 mmol/L LAB CHEMISTRY METHOD 12/12/2024 6:02 PM [facility] Chloride 109 96 - 110 mmol/L LAB CHEMISTRY METHOD 12/12/2024 6:02 PM [facility] CO2 25 21 - 32 mmol/L LAB CHEMISTRY METHOD 12/12/2024 6:02 PM T [facility] Anion Gap 6 3 - 11 LAB CHEMISTRY METHOD 12/12/2024 6:02 PM [facility] Glucose 71 70 - 100 mg/dL LAB CHEMISTRY METHOD 12/12/2024 6:02 PM [facility] BUN 25 5 - 25 mg/dL LAB CHEMISTRY METHOD 12/12/2024 6:02 PM [facility] Creatinine 2.22(H) 0.70 - 1.30 mg/dL LAB CHEMISTRY METHOD 12/12/2024 6:02 PM [facility] eGFR 31(L) >=60 mL/min/1. 73m2 LAB CHEMISTRY METHOD 12/12/2024 6:02 PM [facility] Comment:Calculation based on the Chronic Kidney Disease Epidemiology Collaboration (CKD-EPI) equation refit without adjustment for race. BUN/Creatinine Ratio 11.3 LAB CHEMISTRY METHOD 12/12/2024 6:02 PM [facility] Calcium 9.2 8.5 - 10.5 mg/dL LAB CHEMISTRY METHOD 12/12/2024 6:02 PM [facility] AST (SGOT) 17 10 - 42 unit/L LAB CHEMISTRY METHOD 12/12/2024 6:02 PM [facility] ALT (SGPT) 21 10 - 60 unit/L LAB CHEMISTRY METHOD 12/12/2024 6:02 PM [facility] Alkaline Phosphatase 57 42 - 121 unit/L LAB CHEMISTRY METHOD 12/12/2024 6:02 PM [facility] Total Protein 6.7 6.0 - 8.0 g/dL LAB CHEMISTRY METHOD 12/12/2024 6:02 PM [facility] Albumin 4.1 3.2 - 5.0 g/dL LAB CHEMISTRY METHOD 12/12/2024 6:02 PM [facility] Total Bilirubin 1.0 0.0 - 1.4 mg/dL LAB CHEMISTRY METHOD 12/12/2024 6:02 PM EDT [facility] Blood Venous blood specimen / Unknown Venipuncture / Unknown 12/12/2024 2:03 PM EDT 12/12/2024 3:10 PM EDT Rober Vaughan MD LAB BLOOD ORDERABLES Final Res ult [facility] [address] [place] [address], from Last 3 Months or Most Recently Relevant to Health Maintenance Insurance [employer] - [place] MEDICARE ADVANTAGE Care Teams Production Supply Equipment Tender Relationship Specialty Start Date End Date Rober Vaughna MD [address] [place] [address] PCP - General Internal Medicine 09/26/24
== END 2025-03-22 14:43 | disposition home or self-care (01) ==
LOC: HO.ACS 14:20
PROVIDERS: PCP Internal Medicine; Visit Provider Internal Medicine Medical Oncology
DX: Z79.01 Long term (current) use of anticoagulants (principal)

== ENCOUNTER → 2025-03-22 14:20 | Outpatient (BNVA) | payer MEDICARE, SELFPAY | PROVIDERS: PCP Internal Medicine; Visit Provider Internal Medicine Medical Oncology | DX: D73.5 Infarction of spleen (principal); Z79.01 Long term (current) use of anticoagulants; Z51.81 Encounter for therapeutic drug level monitoring | CPT/HCPCS: 85610; 99211 ==

== ENCOUNTER 2025-04-18 13:56 | Outpatient (AMB) | payer MEDICARE, SELFPAY ==
[2025-04-18 14:05] LABS: Prothrombin Time Whole Bld POC 25.2 sec (11.1-13.5); ~PT, ~INR - Anti Coag Clinic 2.1 (0.9-1.1)
--- NOTE | 2025-04-18 14:13 | MHC.OFFVISCO ---
Intake Intake Visit Reasons: Anticoagulation Allergies No Known Allergies Allergy (Verified 04/18/25 13:59) Medication List - Last Reconciled 04/18/25 by Kimberley Mcgowan, JORGE allopurinol 150 mg PO DAILY fenofibrate 54 mg PO DAILY gabapentin 100 mg PO DAILY PRN hydroxyurea 500 mg PO DAILY losartan 100 mg PO DAILY warfarin 1 mg See Protocol PO DAILY Nursing Note INR: 2.1 in therapeutic range of 2-3 Medications and supplements reviewed No changes in health, diet, medications, or supplements, Denies any signs and symptoms of bleeding or bruising or clotting. 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
--- OUTSIDE RECORDS SUMMARY | 2025-04-18 17:50 | XMS_ITS | Clinical Summary ---
Author Organization [facility] Address [address] [place] [phone] Phone Care Team Providers Care Orientation And Mobility Instructor Name Role Phone Rober Vaughan MD Primary Care Provider [phone] Allergies No known active allergies Medications fenofibrate [...] Encounters Date Type Department Care Team Description 04/08/2025 Orders Only [facility] [address] [phone] Napoleon Mooney MD Stage 3a chronic kidney disease (HCC); Hypertension; Essential thrombocytosis (HCC); Other obesity; Benign prostatic hyperplasia; Thrombosis of mesenteric vein (HCC); Cyst of kidney; Hypercalcemia 04/06/2025 8:20 AM EST Office Visit [facility] [place] [id number] [phone] Napoleon Mooney MD Stage 3a chronic kidney disease (HCC) (Primary Dx); Hypertension; Hypercalcemia; Essential thrombocytosis (HCC); Benign prostatic hyperplasia; Cyst of kidney; Thrombosis of mesenteric vein (HCC); Other obesity from Last 3 Months Family History Medical [...] Sign Reading Time Taken Comments Blood Pressure 164/90 04/06/2025 8:14 AM EST Pulse 66 04/06/2025 8:14 AM EST Temperature - - Respiratory Rate - - Oxygen Saturation 97% 04/06/2025 8:14 AM EST Inhaled Oxygen Concentration - - Weight 109 kg (240 lb) 04/06/2025 8:14 AM EST Height 185.4 cm (6' 1 ) 10/21/2023 7:40 AM EDT Body Mass Index 31.66 10/21/2023 7:40 AM EDT Plan of Treatment Upcoming Encounters Date Type Department Care Team (Late st Contact Info) Description 10/04/2025 8:20 AM EDT Office Visit [facility] [address] [phone] Napoleon Mooney MD [address] [address] Health Maintenance Due Date Last [...] Procedure Name Priority Date/Time Associated Diagnosis Comments CALCIUM, URINE, RANDOM Routine 03/27/2025 2:06 PM EST Stage 3a chronic kidney disease (HCC) Hypertension Essential thrombocytosis (HCC) Other obesity Benign prostatic hyperplasia Thrombosis of mesenteric vein (HCC) Cyst of kidney Hypercalcemia PROTEIN / CREATININE RATIO, URINE Routine 03/27/2025 2:06 PM EST Stage 3a chronic kidney disease (HCC) Hypertension Essential thrombocytosis (HCC) Other obesity Benign prostatic hyperplasia Thrombosis of mesenteric vein (HCC) Cyst of kidney Hypercalcemia CBC WITH AUTO DIFFERENTIAL Routine 03/27/2025 1:57 PM EST VITAMIN D 1,25 DIHYDROXY Routine 03/27/2025 1:57 PM EST Stage 3a chronic kidney disease (HCC) Hypertension Essential thrombocytosis (HCC) Other obesity Benign prostatic hyperplasia Thrombosis of mesenteric vein (HCC) Cyst of kidney Hypercalcemia PTH, INTACT Routine 03/27/2025 1:57 PM EST Stage 3a chronic kidney disease (HCC) Hypertension Essential thrombocytosis (HCC) Other obesity Benign prostatic hyperplasia Thrombosis of mesenteric vein (HCC) Cyst of kidney Hypercalcemia PHOSPHATE ( PHOSPHORUS) Routine 03/27/2025 1:57 PM EST Stage 3a chronic kidney disease (HCC) Hypertension Essential thrombocytosis (HCC) Other obesity Benign prostatic hyperplasia Thrombosis of mesenteric vein (HCC) Cyst of kidney Hypercalcemia MAGNESIUM Routine 03/27/2025 1:57 PM EST Stage 3a chronic kidney disease (HCC) Hypertension Essential thrombocytosis (HCC) Other obesity Benign prostatic hyperplasia Thrombosis of mesenteric vein (HCC) Cyst of kidney Hypercalcemia URIC ACID Routine 03/27/2025 1:57 PM EST Stage 3a chronic kidney disease (HCC) Hypertension Essential thrombocytosis (HCC) Other obesity Benign prostatic hyperplasia Thrombosis of mesenteric vein (HCC) Cyst of kidney Hypercalcemia COMPREHENSIVE METABOLIC PANEL Routine 03/27/2025 1:57 PM EST Stage 3a chronic kidney disease (HCC) Hypertension Essential thrombocytosis (HCC) Other obesity Benign prostatic hyperplasia Thrombosis of mesenteric vein (HCC) Cyst of kidney Hypercalcemia from Last 3 Months Results * Protein, Total, Random Urine w/Creatinine (Protein/Creat Ratio) (03/27/2025 2:06 PM EST) Protein, Ur 29 mg/dL [facility] Urine Protein/Creati nine Ratio 0.11 <=0.20 mg/mg creat [facility] Creatinine, Urine 275.0 mg/dL [facility] Urine specimen (specimen) Urine specimen obtained by clean catch procedure / Unknown 03/27/2025 2:06 PM EST 03/27/2025 2:24 PM EST us Napoleon Mooney MD LAB URINE ORDERABLES Final Re sult [facility] [address] [place] [address] * Calcium, urine, random (03/27/2025 2:06 PM EST) [facility] Calcium, Ur <5.0 mg/dL [facility] Comment:Results verified by repeat testing Urine specimen (specimen) Urine specimen obtained by clean catch procedure / Unknown 03/27/2025 2:06 PM EST 03/27/2025 2:24 PM EST us Napoleon Mooney MD LAB URINE ORDERABLES Final Re sult STACEY [facility] [address] [place] [address] * (ABNORMAL) CBC auto differential (03/27/2025 1:57 PM EST) [facility] WBC 7.3 4.8 - 10.8 K/mcL [facility] RBC 4.80 4.50 - 5.50 M/[facility] Hgb 15.9 13.5 - 17.5 g/dL [facility] Hematocrit 48.4 42.0 - 54.0 % [facility] MCV 100.8(H) 79.0 - 98.0 FL [facility] MCH 33.1(H) 27.0 - 32.0 pcg [facility] MCHC 32.9 32.0 - 37.0 g/dL [facility] RDW 14.6 11.0 - 15.0 % [facility] Platelets 399 130 - 400 K/[facility] MPV 8.8 7.0 - 11.0 FL [facility] nRBC Count 0.0 <1.0 % [facility] NRBC Absolute 0.00 <0.10 K/[facility] Bands Relative 75.3 % [facility] Lymphocyte Realative Percent 14.5 % [facility] Monocyte Relative Percent 5.9 % [facility] Eosinophil Relative Percent 2.5 % [facility] Basophils Relative Diff 1.5 % [facility] Immature Granulocytes 0.3 % [facility] Neutrophils Absolute 5.51 1.50 - 7.00 K/[facility] Lymphocytes Absolute 1.06 1.00 - 5.00 K/[facility] Monocytes Absolute 0.43 0.20 - 1.00 K/[facility] Eosinophil Absolute 0.18 0.00 - 0.50 K/[facility] Basophil ABS 0.11 0.00 - 0.20 K/[facility] Immature Grans (Absolute) 0.02 0.00 - 0.03 K/[facility] 03/27/2025 1:57 PM EST 03/27/2025 2:06 PM EST us Napoleon Mooney MD LAB BLOOD ORDERABLES Final Re sult [facility] [address] [place] [address] * Vitamin D 1,25 dihydroxy (03/27/2025 1:57 PM EST) Vitamin D, 1,25-Dihydroxy 34 20 - 79 pg/mL [facility] Comment: Vitamin D 1, 25 dihydroxy levels should be primarily used to assess Vitamin D status in patients with renal disease and hypercalcemia. Vitamin D 1,25-dihydroxy levels are generally less than 5 pg/mL in end stage renal disease patients. The preferred initial test for assessing Vitamin D status in the general population is Vitamin D 25-hydroxy (VITD). Test performed at [facility], [address] , [place] [address] Yue Armas MD, PhD - Box Fabricator Blood specimen (specimen) Venous blood / Unknown 03/27/2025 1:57 PM EST 03/27/2025 2:31 PM EST us Napoleon Mooney MD LAB BLOOD ORDERABLES Final Re sult Performing Organization Address City/[facility]/ZIP Co de Phone Number [facility] [address] [place] [address] * Uric Acid (03/27/2025 1:57 PM EST) Uric Acid 4.6 3.7 - 9.2 mg/dL [facility] Blood specimen (specimen) Venous blood / Unknown 03/27/2025 1:57 PM EST 03/27/2025 2:06 PM EST Napoleon Mooney MD LAB BLOOD ORDERABLES Final Re sult Performing Organization Address [facility] Co de Phone Number [facility] [address] [place] [address] * Phosphorus (03/27/2025 1:57 PM EST) Phosphorus 3.2 2.5 - 4.5 mg/dL [facility] Blood specimen (specimen) Venous blood / Unknown 03/27/2025 1:57 PM EST 03/27/2025 2:06 PM EST Result [facility] Napoleon Mooney MD LAB BLOOD ORDERABLES Final Re sult Performing Organization Address [facility] Co de Phone Number [facility] [address] [place] [address] * PTH, Intact (03/27/2025 1:57 PM EST) PTH 87.0 18.5 - 88.0 pcg/mL [facility] Blood specimen (specimen) Venous blood / Unknown 03/27/2025 1:57 PM EST 03/27/2025 2:06 PM EST us Napoleon Mooney MD LAB BLOOD ORDERABLES Final Re sult Performing Organization Address City/[facility]/ZIP Co de Phone Number [facility] [address] [place] [address] * Magnesium (03/27/2025 1:57 PM EST) Pathologist [facility] Magnesium 2.2 1.9 - 2.6 mg/dL [facility] Blood specimen (specimen) Venous blood / Unknown 03/27/2025 1:57 PM EST 03/27/2025 2:06 PM EST us Napoleon Mooney MD LAB BLOOD ORDERABLES Final Re sult Performing Organization Address [facility] de Phone Number [facility] [address] [place] [address] * (ABNORMAL) Comprehensive Metabolic Panel (03/27/2025 1:57 PM EST) [facility] Sodium 140 133 - 145 mmol/L [facility] Potassium 4.3 3.5 - 5.5 mmol/L [facility] Chloride 110 96 - 110 mmol/L [facility] Bicarbonate (CO2) 24 21 - 32 mmol/L [facility] Anion Gap 6 3 - 11 [facility] Glucose 76 70 - 100 mg/dL [facility] BUN 26(H) 5 - 25 mg/dL [facility] Creatinine Serum 2.01(H) 0.70 - 1.30 mg/dL [facility] eGFR 34(L) >=60 mL/min/1. 73m2 [facility] Comment:Calculation based on the Chronic Kidney Disease Epidemiology Collaboration (CKD-EPI) equation refit without adjustment for race. BUN/Creatinine Ratio 12.9 [facility] Calcium 8.7 8.5 - 10.5 mg/dL [facility] AST (SGOT) 28 10 - 42 unit/L [facility] ALT (SGPT) 28 10 - 60 unit/L [facility] Alkaline Phosphatase 43 42 - 121 unit/L [facility] Total Protein 6.4 6.0 - 8.0 g/dL [facility] Albumin 4.1 3.2 - 5.0 g/dL [facility] Total Bilirubin 1.5(H) 0.0 - 1.4 mg/dL [facility] Blood specimen (specimen) Venous blood / Unknown 03/27/2025 1:57 PM EST 03/27/2025 2:06 PM EST us Napoleon Mooney MD LAB BLOOD ORDERABLES Final Re sult STACEY [facility] [address] [place] [address] from Last 3 Months Insurance Care Teams Orientation And Mobility Instructor Relationship Specialty Start Date End Date Rober Vaughan MD [address] [place] [phone] PCP - General Internal Medicine 10/21/23
--- OUTSIDE RECORDS SUMMARY | 2025-04-18 17:50 | XMS_ITS | Encounter Summary ---
Author Organization [facility] Address [address] [place] [address] Care Team Providers Care Territory Sales Manager Medical Name Role Phone Rober Vaughan MD Primary Care Provider [phone] Encounter Details Date Type Department Care Team (Latest Contact Info) Description 07/26/2024 Lab Requisition [facility] - Main Lab [address] [facility] [employer] [place] [address] Rober Vaughan MD [address] [place] [address] Postprocedural hypothyroidism; Essential (primary) hypertension; Encounter for [...] Description 05/03/2025 2:30 PM EST Office Visit [facility] Hematology Oncology [address] [place] [address] Nia Browning MD [address] [place] [address] documented as of this encounter [...] LAB HEMETOLOGY METHOD 07/28/2024 4:08 PM EST [facility] Blood Venous blood specimen / Unknown Venipuncture / Unknown 07/28/2024 3:11 PM EST 07/28/2024 3:27 PM EST us Rober Vaughan MD LAB BLOOD ORDERABLES Final Res ult [facility] [address] [place] [address], [place] [phone] * (ABNORMAL) Complete blood count (07/28/2024 3:11 PM EST) WBC 7.3 4.8 - 10.8 K/mcL LAB HEMETOLOGY METHOD 07/28/2024 3:57 PM EST [facility] RBC 5.00 4.50 - 5.50 M/mcL LAB HEMETOLOGY METHOD 07/28/2024 3:57 PM EST [facility] Hemoglobin 15.0 13.5 - 17.5 g/dL LAB HEMETOLOGY METHOD 07/28/2024 3:57 PM EST [facility] Hematocrit 47.3 42.0 - 54.0 % LAB HEMETOLOGY METHOD 07/28/2024 3:57 PM EST [facility] MCV 94.2 79.0 - 98.0 FL LAB HEMETOLOGY METHOD 07/28/2024 3:57 PM EST [facility] MCH 29.9 27.0 - 32.0 pcg LAB HEMETOLOGY METHOD 07/28/2024 3:57 PM EST [facility] MCHC 31.7(L) 32.0 - 37.0 g/dL LAB HEMETOLOGY METHOD 07/28/2024 3:57 PM EST [facility] RDW 15.3(H) 11.0 - 15.0 % LAB HEMETOLOGY METHOD 07/28/2024 3:57 PM [facility] Platelets 410(H) 130 - 400 K/mcL LAB HEMETOLOGY METHOD 07/28/2024 3:57 PM EST [facility] MPV 9.4 7.0 - 11.0 FL LAB HEMETOLOGY METHOD 07/28/2024 3:57 PM EST [facility] NRBC 0.0 <1.0 % LAB HEMETOLOGY METHOD 07/28/2024 3:57 PM EST [facility] NRBC Absolute 0.00 <0.10 K/mcL LAB HEMETOLOGY METHOD 07/28/2024 3:57 PM EST [facility] Blood Venous blood specimen / Unknown Venipuncture / Unknown 07/28/2024 3:11 PM EST 07/28/2024 3:27 PM EST us Rober Vaughan MD LAB BLOOD ORDERABLES Final Res ult [facility] [address] [place] [address], [place] [phone] * (ABNORMAL) Comprehensive metabolic panel (07/28/2024 3:11 [...] LAB CHEMISTRY METHOD 07/28/2024 4:24 PM EST [facility] Total Protein 6.7 6.0 [...] MD LAB BLOOD ORDERABLES Final Res ult [facility] [address] [place] [address], [place] [phone] * Thyroid stimulating hormone (07/28/2024 3:11 PM EST) TSH 2.25 0.40 - 4.00 mcIU/mL LAB CHEMISTRY METHOD 07/28/2024 4:28 PM [facility] Blood Venous blood specimen / Unknown Venipuncture / Unknown 07/28/2024 3:11 PM EST 07/28/2024 3:27 PM EST us Rober Vaughan MD LAB BLOOD ORDERABLES Final Res ult [facility] [address] [place] [address], [place] [phone] documented in this encounter Visit Diagnoses Diagnosis Postprocedural hypothyroidism Postsurgical hypothyroidism Essential (primary) hypertension Unspecified essential hypertension Encounter for general adult medical examination with abnormal findings Unspecified osteoarthritis, unspecified site documented in this encounter Care Teams Territory Sales Manager Medical Relationship Specialty Start Date End Date Rober Vaughan MD [address] [place] [address] PCP - General Internal Medicine 09/26/24 documented as of this encounter
--- OUTSIDE RECORDS SUMMARY | 2025-04-18 17:50 | XMS_ITS | Patient Health Record ---
Author Organization [facility] Address [address] [place] [address] Care Team Providers Care Cam Maker Name Role Phone Clement SOTO, Rober Primary Care Provider Unavail able Guy Raines Unavailable [phone] Reason For Referral No Information Medications Medication [...] Status W/U Status Risk Notes Problem Bursitis (73737899) Bursitis (727.3) Active confirmed Problem Hammer toe (887653382) Hammer toe (735.4) Active confirmed Plan Of Treatment Pending Test Test Name Order Date X ray : Foot, right 3V 02/03/2013 Insurance Providers Payer Name Payer Address Payer Phone Subscriber Number Group Number Insured Name Patient Relationship to Insured Coverage Start Date Coverage End Date [facility] [address] [place] [address] [id number] Hardik Jerry Self - patient is the insured Medical (General) History Medical History History ICD Code measles mumps chicken pox Surgical History Surgery Date(Month/Year) thyroidectomy
--- OUTSIDE RECORDS SUMMARY | 2025-04-18 17:50 | XMS_ITS | Clinical Summary ---
Author Organization [facility] Address [address] [place] [address] Care Team Providers Care Alodize Machine Helper Name Role Phone Rober Vaughan MD Primary Care Provider [phone] Allergies No known active allergies Medications Medication [...] age to complete this topic Care Teams Alodize Machine Helper Relationship Specialty Start Date End Date Rober Vaughan MD PCP - General Internal Medicine 06/11/16
--- OUTSIDE RECORDS SUMMARY | 2025-04-18 17:50 | XMS_ITS | Encounter Summary ---
Author Organization [facility] Address [address] [place] [address] Care Team Providers Care Tufter Hand Name Role Phone Rober Vaughan MD Primary Care Provider [phone] Encounter Details Date Type Department Care Team (Latest Contact Info) Description 12/11/2024 Lab Requisition [facility] - Main Lab [address] [place] [address] Rober Vuaghan MD [address] [place] [address] Postprocedural hypothyroidism; Encounter for general adult medical examination without abnormal findings; Essential (primary) hypertension; Mild intermittent asthma, uncomplicated; Unspecified osteoarthritis, unspecified site; Vitamin D deficiency, unspecified; Type 2 diabetes mellitus with hyperglycemia ([facility] V24, [facility] V28) Social History Tobacco [...] Description 05/03/2025 2:30 PM EST Office Visit [facility] Hematology Oncology [address] [place] [address] Nia Browning MD [address] [place] [address] documented as of this encounter Procedures Procedure [...] EDT Type 2 diabetes mellitus with hyperglycemia ([facility] V24, [facility] V28) COMPREHENSIVE METABOLIC PANEL Routine 12/12/2024 2:03 PM EDT Essential (primary) hypertension documented in this encounter Results * (ABNORMAL) CBC auto differential (12/12/2024 2:03 PM EDT) WBC 8.9 4.8 - 10.8 K/mcL LAB HEMETOLOGY METHOD 12/12/2024 3:54 PM EDT [facility] RBC 5.10 4.50 - 5.50 M/mcL LAB HEMETOLOGY METHOD 12/12/2024 3:54 PM EDT [facility] Hemoglobin 16.1 13.5 - 17.5 g/dL LAB HEMETOLOGY METHOD 12/12/2024 3:54 PM EDT [facility] Hematocrit 50.2 42.0 - 54.0 % LAB [facility]OLOG[facility] MCV 99.2(H) 79.0 - 98.0 FL LAB HEMETOLOGY METHOD 12/12/2024 3:54 PM EDT [facility] MCH 31.8 27.0 - 32.0 pcg LAB HEMETOLOGY METHOD [facility] MCHC 32.1 32.0 - 37.0 g/dL LAB HEMETOLOGY METHOD 12/12[facility]2024 [facility] RDW 13.4 11.0 - 15.0 % LAB HEMETOLOGY METHOD 12/12/2024 3:54 PM EDT [facility] Platelets 509(H) 130 - 400 K/mcL LAB HEMETOLOGY METHOD 12/12[facility]24 [facility] MPV 9.0 7.0 - 11.0 FL LAB HEMETOLOGY METHOD 12/12[facility]24 [facility] NRBC 0.0 <1.0 % LAB HEMETOLOGY METHOD 12/12/2024 3:54 PM EDT [facility] NRBC Absolute 0.00 <0.10 K/mcL LAB HEMETOLOGY METHOD 12/12[facility]24 [facility] Neutrophils Relative 76.5 % LAB HEMETOLOGY METHOD 12/12[facility]24 [facility] Lymphocytes Relative 12.1 % LAB HEMETOLOGY METHOD 12/12/2024 3:54 PM EDT [facility] Monocytes Relative 7.8 % LAB HEMETOLOGY METHOD 12/12/2024 3:54 PM EDT [facility] Eosinophils Relative 2.0 % LAB HEMETOLOGY METHOD 12/12/2024 3:54 PM EDT [facility] Basophils Relative 1.2 % LAB HEMETOLOGY METHOD 12/12/2024 3:54 PM EDT [facility] Immature Granulocytes Relative 0.4 % LAB HEMETOLOGY METHOD 12/12/2024 3:54 PM EDT [facility] Neutrophils Absolute 6.79 1.50 - 7.00 K/mcL LAB HEMETOLOGY METHOD 12/12/2024 3:54 PM EDT [facility] Lymphocytes Absolute 1.08 1.00 - 5.00 K/mcL LAB HEMETOLOGY METHOD 12/12/2024 3:54 PM EDT [facility] Monocytes Absolute 0.69 0.20 - 1.00 K/mcL LAB HEMETOLOGY METHOD 12/12/2024 3:54 PM EDT [facility] Eosinophils Absolute 0.18 0.00 - 0.50 K/mcL LAB HEMETOLOGY METHOD 12/12/2024 3:54 PM EDT [facility] Basophils Absolute 0.11 0.00 - 0.20 K/mcL LAB HEMETOLOGY METHOD 12/12/2024 3:54 PM EDT [facility] Immature Granulocytes Absolute 0.04(H) 0.00 - 0.03 K/mcL LAB HEMETOLOGY METHOD 12/12/2024 3:54 PM EDT [facility] Blood Venous blood specimen / Unknown Venipuncture / Unknown 12/12/2024 2:03 PM EDT 12/12/2024 3:09 PM EDT us Rober Vaughan MD LAB BLOOD ORDERABLES Final Res ult [facility] [address] [place] [address], [place] [phone] * Hemoglobin A1c (12/12/2024 2:03 PM EDT) Hemoglobin A1C 5.3 <6.5 % LAB CHEMISTRY METHOD 12/13/2024 11:06 AM EDT [facility] Mean Bld Glu Estim. 105 mg/dL LAB CHEMISTRY METHOD 12/13/2024 11:06 AM EDT [facility] Blood Venous blood specimen / Unknown Venipuncture / Unknown 12/12/2024 2:03 PM EDT 12/12/2024 3:09 PM EDT us Rober Vaughan MD LAB BLOOD ORDERABLES Final Res ult [facility] [address] [place] [address], [place] [phone] * (ABNORMAL) Microalbumin creatinine urine ratio (12/12/2024 2:03 PM EDT) Pathologist [facility] Creatinine, Urine 291.0 mg/dL LAB CHEMISTRY METHOD 12/12/2024 6:57 PM EDT [facility] Comment:Results verified by repeat testing Microalb, Ur 87.0(H) 0.0 - 29.0 mg/L LAB CHEMISTRY METHOD 12/12/2024 6:57 PM EDT [facility] Microalb/Crea t Ratio 30(H) <30 mg/g creat LAB CHEMISTRY METHOD 12/12/2024 6:57 PM EDT [facility] Urine Urine specimen obtained by clean catch procedure / Unknown Non-blood Collection / Unknown 12/12/2024 2:03 PM EDT 12/12/2024 3:10 PM EDT Rober Vaughan MD LAB URINE ORDERABLES Final Res ult Performing Organization Address [facility]/ZIP Co de Phone Number [facility] [address] [place] [address], [place] [phone] * (ABNORMAL) Vitamin D 25 hydroxy (12/12/2024 2:03 PM EDT) [facility] Vit D, 25-Hydroxy 17.1(L) 30.0 - 80.0 ng/mL LAB CHEMISTRY METHOD 12/12/2024 6:33 PM EDT [facility] Blood Venous blood specimen / Unknown Venipuncture / Unknown 12/12/2024 2:03 PM EDT 12/12/2024 3:10 PM EDT Rober Vaughan MD LAB BLOOD ORDERABLES Final Res ult Performing Organization Address [facility]/ZIP Co de Phone Number [facility] [address] [place] [address], [place] [phone] * (ABNORMAL) Lipid panel with reflex to direct LDL (12/12/2024 2:03 PM EDT) [facility] Cholesterol 160 0 - 200 mg/dL LAB CHEMISTRY METHOD 12/12/2024 6:02 PM EDT [facility] Triglycerides 178(H) 0 - 150 mg/dL LAB CHEMISTRY METHOD 12/12/2024 6:02 PM EDT [facility] HDL 41 >=40 mg/dL LAB CHEMISTRY METHOD 12/12/2024 6:02 PM EDT [facility] LDL Calculated 83 0 - 100 mg/dL LAB CHEMISTRY METHOD 12/12/2024 6:02 PM EDT [facility] VLDL Cholesterol Juan A 35.6 mg/dL LAB CHEMISTRY METHOD 12/12/2024 6:02 PM EDT [facility] Non HDL Chol. (LDL+VLDL) 119 <145 mg/dL LAB CHEMISTRY METHOD 12/12/2024 6:02 PM EDT [facility] Chol/HDL Ratio 3.9 0.0 - 4.4 LAB CHEMISTRY METHOD 12/12/2024 6:02 PM EDT [facility] Blood Venous blood specimen / Unknown Venipuncture / Unknown 12/12/2024 2:03 PM EDT 12/12/2024 3:10 PM EDT Rober Vaughan MD LAB BLOOD ORDERABLES Final Res ult [facility] [address] [place] [address], [place] [phone] * Sedimentation rate (12/12/2024 2:03 PM EDT) Sed Rate 7 0 - 20 mm/hr LAB HEMETOLOGY METHOD 12/12/2024 3:28 PM EDT [facility] Blood Venous blood specimen / Unknown Venipuncture / Unknown 12/12/2024 2:03 PM EDT 12/12/2024 3:09 PM EDT Rober Vaughan MD LAB BLOOD ORDERABLES Final Res ult Performing Organization Address [facility]/ZIP Co de Phone Number [facility] [address] [place] [address], [place] [phone] * (ABNORMAL) Comprehensive metabolic panel (12/12/2024 2:03 PM EDT) Sodium 140 133 - 145 mmol/L LAB CHEMISTRY METHOD 12/12/2024 6:02 PM EDT [facility] Potassium 4.7 3.5 - 5.5 mmol/L LAB CHEMISTRY METHOD 12/12/2024 6:02 PM EDT [facility] Chloride 109 96 - 110 mmol/L LAB CHEMISTRY METHOD 12/12/2024 6:02 PM EDT [facility] CO2 25 21 - 32 mmol/L LAB CHEMISTRY METHOD 12/12/2024 6:[address] [facility] Anion Gap 6 3 - 11 LAB CHEMISTRY METHOD 12/12/2024 6:[address] [facility] Glucose 71 70 - 100 mg/dL LAB CHEMISTRY METHOD 12/12/2024 6:[address] [facility] BUN 25 5 - 25 mg/dL LAB CHEMISTRY METHOD 12/12/2024 6:[address] [facility] Creatinine 2.22(H) 0.70 - 1.30 mg/dL LAB CHEMISTRY METHOD 12/12/2024 6:[address] [facility] eGFR 31(L) >=60 mL/min/1. 73m2 LAB CHEMISTRY METHOD 12/12/2024 6:[address] [facility] Comment:Calculation based on the Chronic Kidney Disease Epidemiology Collaboration (CKD-EPI) equation refit without adjustment for race. BUN/Creatinine Ratio 11.3 LAB CHEMISTRY METHOD 12/12/2024 6:[address] [facility] Calcium 9.2 8.5 - 10.5 mg/dL LAB CHEMISTRY METHOD 12/12/2024 6:[address] [facility] AST (SGOT) 17 10 - 42 unit/L LAB CHEMISTRY METHOD 12/12/2024 6:[address] [facility] ALT (SGPT) 21 10 - 60 unit/L LAB CHEMISTRY METHOD 12/12/2024 6:[address] [facility] Alkaline Phosphatase 57 42 - 121 unit/L LAB CHEMISTRY METHOD 12/12/2024 6:[address] [facility] Total Protein 6.7 6.0 - 8.0 g/dL LAB CHEMISTRY METHOD 12/12/2024 6:[address] [facility] Albumin 4.1 3.2 - 5.0 g/dL LAB CHEMISTRY METHOD 12/12/2024 6:[address] [facility] Total Bilirubin 1.0 0.0 - 1.4 mg/dL LAB CHEMISTRY METHOD 12/12/2024 6:02 PM EDT [facility] Blood Venous blood specimen / Unknown Venipuncture / Unknown 12/12/2024 2:03 PM EDT 12/12/2024 3:10 PM EDT Rober Vaughan MD LAB BLOOD ORDERABLES Final Res ult Performing Organization Address [facility]/ZIP Co de Phone Number [facility] [address] [place] [address], [place] [phone] * Uric acid (12/12/2024 2:03 PM EDT) [facility] Uric Acid 5.0 3.7 - 9.2 mg/dL LAB CHEMISTRY METHOD 12/12/2024 6:01 PM EDT [facility] Blood Venous blood specimen / Unknown Venipuncture / Unknown 12/12/2024 2:03 PM EDT 12/12/2024 3:10 PM EDT Rober Vaughan MD LAB BLOOD ORDERABLES Final Res ult Performing Organization Address [facility] Co de Phone Number [facility] [address] [place] [address], [place] [phone] * Thyroid stimulating hormone (12/12/2024 2:03 PM EDT) [facility] TSH 2.06 0.40 - 4.00 mcIU/mL LAB CHEMISTRY METHOD 12/12/2024 6:34 PM EDT [facility] Blood Venous blood specimen / Unknown Venipuncture / Unknown 12/12/2024 2:03 PM EDT 12/12/2024 3:10 PM EDT Rober Vaughan MD LAB BLOOD ORDERABLES Final Res ult Performing Organization Address City/[facility]/ZIP Co de Phone Number [facility] [address] [place] [address], documented in this encounter Visit Diagnoses Diagnosis Postprocedural hypothyroidism Postsurgical hypothyroidism Encounter for general adult medical examination without abnormal findings Essential (primary) hypertension Unspecified essential hypertension Mild intermittent asthma, uncomplicated Unspecified osteoarthritis, unspecified site Vitamin D deficiency, unspecified Type 2 diabetes mellitus with hyperglycemia ([facility] V24, [facility] V28) documented in this encounter Care Teams Tufter Hand Relationship Specialty Start Date End Date Rober Vaughan MD [address] [place] [address] PCP - General Internal Medicine 09/26/24 documented as of this encounter
--- OUTSIDE RECORDS SUMMARY | 2025-04-18 17:50 | XMS_ITS | Clinical Summary ---
Author Organization 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 Portal vein thrombosis 01/04/2020 Other fatigue 01/04/2020 Stage 3 chronic kidney disease (CMS/HCC V24, CMS /HCC V28) 01/04/2020 Encounters Date Type Department Care Team Description 04/06/2025 2:50 PM EST Lab Draw Station - 299 [facility] [address] [place] [address] Thrombocythemia (Primary Dx); Mixed hyperlipidemia; Essential hypertension, malignant; Malignant hypertensive kidney disease with chronic kidney disease stage I through stage IV, or unspecified(403.00); Portal vein thrombosis 03/27/2025 1:50 PM EST Lab Draw Station - 299 [facility] [address] [place] [id number] Chronic kidney disease (CKD) stage G3a/A1, moderately decreased glomerular filtration rate (GFR) between 45-59 mL/min/1.73 square meter and albuminuria creatinine ratio les* ([facility] V24, [facility] V28) (Primary Dx); Thrombocythemia, essential ([facility] V24, CMS/[facility] V28); Hyperplastic-hypertrophic obesity; Benign enlargement of prostate; Acute vascular insufficiency of intestine ([facility] V24); Acquired cyst of kidney; Hypercalcemia from Last 3 Months Social History Tobacco [...] Visit [facility] Hematology Oncology [address] [place] [address] Nia Browning MD [address] [place] [address] Health Maintenance Due Date Last [...] Screening 05/02/2022 Depression Screening 05/25/2024 COVID-19 Vaccine (8 - Pfizer risk 2024- season) 2025 02/25/2025, 02/13/2024, 04/13/2023, Additional history exists Hypertension/CHF/CAD Annual BMP Blood Test 04/06/2026 04/06/2025, 03/27/2025, 03/27/2025, Additional history exists Cholesterol Screening (Lipid Panel) 12/12/2029 12/12/2024 Influenza Vaccine Completed 02/25/2025, , 04/13/2023, Additional history exists HIB Vaccines Aged Out [...] Diagnosis Comments CBC WITH AUTO DIFFERENTIAL Routine 04/06/2025 2:52 PM EST Thrombocythemia Mixed hyperlipidemia Essential hypertension, malignant Malignant hypertensive kidney disease with chronic kidney disease stage I through stage IV, or unspecified(403.00) Portal vein thrombosis THYROID STIMULATING HORMONE Routine 04/06/2025 2:52 PM EST Thrombocythemia Mixed hyperlipidemia Essential hypertension, malignant Malignant hypertensive kidney disease with chronic kidney disease stage I through stage IV, or unspecified(403.00) Portal vein thrombosis SEDIMENTATION RATE Routine 04/06/2025 2: 52 PM EST Thrombocythemia Mixed hyperlipidemia Essential hypertension, malignant Malignant hypertensive kidney disease with chronic kidney disease stage I through stage IV, or unspecified(403.00) Portal vein thrombosis COMPREHENSIVE METABOLIC PANEL Routine 04/06/2025 2:52 PM EST Thrombocythemia Mixed hyperlipidemia Essential hypertension, malignant Malignant hypertensive kidney disease with chronic kidney disease stage I through stage IV, or unspecified(403.00) Portal vein thrombosis CBC AND DIFFERENTIAL Routine 04/06/2025 2:52 PM EST Thrombocythemia Mixed hyperlipidemia Essential hypertension, malignant Malignant hypertensive kidney disease with chronic kidney disease stage I through stage IV, or unspecified(403.00) Portal vein thrombosis PROTEIN AND CREATININE WITH RATIO, URINE Routine 03/27/2025 2:06 PM EST Chronic kidney disease (CKD) stage G3a/A1, moderately decreased glomerular filtration rate (GFR) between 45-59 mL/min/1.73 square meter and albuminuria creatinine ratio les* (CMS/HCC V24, CMS/HCC V28) Thrombocythemia, essential (CMS/HCC V24, CMS/HCC V28) Hyperplastic-hypertro phic obesity Benign enlargement of prostate Acute vascular insufficiency of intestine (CMS/HCC V24) Acquired cyst of kidney Hypercalcemia CALCIUM, URINE, RANDOM Routine 03/27/2025 2:06 PM EST Chronic kidney disease (CKD) stage G3a/A1, moderately decreased glomerular filtration rate (GFR) between 45-59 mL/min/1.73 square meter and albuminuria creatinine ratio les* (CMS/HCC V24, CMS/HCC V28) Thrombocythemia, essential (CMS/HCC V24, CMS/HCC V28) Hyperplastic-hypertro phic obesity Benign enlargement of prostate Acute vascular insufficiency of intestine (CMS/HCC V24) Acquired cyst of kidney Hypercalcemia CBC WITH AUTO DIFFERENTIAL Routine 03/27/2025 1:57 PM EST Chronic kidney disease (CKD) stage G3a/A1, moderately decreased glomerular filtration rate (GFR) between 45-59 mL/min/1.73 square meter and albuminuria creatinine ratio les* (CMS/HCC V24, CMS/HCC V28) Thrombocythemia, essential (CMS/HCC V24, CMS/HCC V28) Hyperplastic-hypertro phic obesity Benign enlargement of prostate Acute vascular insufficiency of intestine (CMS/HCC V24) Acquired cyst of kidney Hypercalcemia VITAMIN D 1,25 DIHYDROXY Routine 03/27/2025 1:57 PM EST Chronic kidney disease (CKD) stage G3a/A1, moderately decreased glomerular filtration rate (GFR) between 45-59 mL/min/1.73 square meter and albuminuria creatinine ratio les* (CMS/HCC V24, CMS/HCC V28) Thrombocythemia, essential (CMS/HCC V24, CMS/HCC V28) Hyperplastic-hypertro phic obesity Benign enlargement of prostate Acute vascular insufficiency of intestine (CMS/HCC V24) Acquired cyst of kidney Hypercalcemia CBC AND DIFFERENTIAL Routine 03/27/2025 1:57 PM EST Chronic kidney disease (CKD) stage G3a/A1, moderately decreased glomerular filtration rate (GFR) between 45-59 mL/min/1.73 square meter and albuminuria creatinine ratio les* (CMS/HCC V24, CMS/HCC V28) Thrombocythemia, essential (CMS/HCC V24, CMS/HCC V28) Hyperplastic-hypertro phic obesity Benign enlargement of prostate Acute vascular insufficiency of intestine (CMS/HCC V24) Acquired cyst of kidney Hypercalcemia PARATHYROID HORMONE INTACT Routine 03/27/2025 1:57 PM EST Chronic kidney disease (CKD) stage G3a/A1, moderately decreased glomerular filtration rate (GFR) between 45-59 mL/min/1.73 square meter and albuminuria creatinine ratio les* (CMS/HCC V24, CMS/HCC V28) Thrombocythemia, essential (CMS/HCC V24, CMS/HCC V28) Hyperplastic-hypertro phic obesity Benign enlargement of prostate Acute vascular insufficiency of intestine (CMS/HCC V24) Acquired cyst of kidney Hypercalcemia PHOSPHORUS Routine 03/27/2025 1:57 PM EST Chronic kidney disease (CKD) stage G3a/A1, moderately decreased glomerular filtration rate (GFR) between 45-59 mL/min/1.73 square meter and albuminuria creatinine ratio les* (CMS/HCC V24, CMS/HCC V28) Thrombocythemia, essential (CMS/HCC V24, CMS/HCC V28) Hyperplastic-hypertro phic obesity Benign enlargement of prostate Acute vascular insufficiency of intestine (CMS/HCC V24) Acquired cyst of kidney Hypercalcemia MAGNESIUM Routine 03/27/2025 1:57 PM EST Chronic kidney disease (CKD) stage G3a/A1, moderately decreased glomerular filtration rate (GFR) between 45-59 mL/min/1.73 square meter and albuminuria creatinine ratio les* (CMS/HCC V24, CMS/HCC V28) Thrombocythemia, essential (CMS/HCC V24, CMS/HCC V28) Hyperplastic-hypertro phic obesity Benign enlargement of prostate Acute vascular insufficiency of intestine (CMS/HCC V24) Acquired cyst of kidney Hypercalcemia URIC ACID Routine 03/27/2025 1:57 PM EST Chronic kidney disease (CKD) stage G3a/A1, moderately decreased glomerular filtration rate (GFR) between 45-59 mL/min/1.73 square meter and albuminuria creatinine ratio les* (CMS/HCC V24, CMS/HCC V28) Thrombocythemia, essential (CMS/HCC V24, CMS/HCC V28) Hyperplastic-hypertro phic obesity Benign enlargement of prostate Acute vascular insufficiency of intestine (CMS/HCC V24) Acquired cyst of kidney Hypercalcemia COMPREHENSIVE METABOLIC PANEL Routine 03/27/2025 1:57 PM EST Chronic kidney disease (CKD) stage G3a/A1, moderately decreased glomerular filtration rate (GFR) between 45-59 mL/min/1.73 square meter and albuminuria creatinine ratio les* ([facility]/HCC V24, CMS/HCC V28) Thrombocythemia, essential (CMS/HCC V24, CMS/HCC V28) Hyperplastic-hypertro phic obesity Benign enlargement of prostate Acute vascular insufficiency of intestine ([facility] V24) Acquired cyst of kidney Hypercalcemia LIPID PANEL WITH REFLEX TO DIRECT LDL Routine 12/12/2024 2:03 PM EDT Encounter for general adult medical examination without abnormal findings from Last 3 Months or Most Recently Relevant to Health Maintenance Results * (ABNORMAL) CBC auto differential (04/06/2025 2:52 PM EST) Only the most recent of2 resultswithin the time period is included. WBC 6.9 4.8 - 10.8 K/mcL LAB HEMETOLOGY METHOD 04/06/2025 4:[address] [facility] RBC 4.80 4.50 - 5.50 M/mcL LAB HEMETOLOGY METHOD 04/06/2025 4:[address] [facility] Hemoglobin 15.8 13.5 - 17.5 g/dL LAB HEMETOLOGY METHOD 04/06/2025 4:[address] [facility] Hematocrit 49.0 42.0 - 54.0 % LAB HEMETOLOGY METHOD 04/06/2025 4:[address] [facility] MCV 102.5(H) 79.0 - 98.0 FL LAB HEMETOLOGY METHOD 04/06/2025 4:[address] [facility] MCH 33.1(H) 27.0 - 32.0 pcg LAB HEMETOLOGY METHOD 04/06/2025 4:[address] [facility] MCHC 32.2 32.0 - 37.0 g/dL LAB HEMETOLOGY METHOD 04/06/2025 4:[address] [facility] RDW 14.4 11.0 - 15.0 % LAB HEMETOLOGY METHOD 04/06/2025 4:[address] [facility] Platelets 452(H) 130 - 400 K/mcL LAB HEMETOLOGY METHOD 04/06/2025 4:[address] [facility] MPV 8.8 7.0 - 11.0 FL LAB HEMETOLOGY METHOD 04/06/2025 4:[address] [facility] NRBC 0.0 <1.0 % LAB HEMETOLOGY METHOD 04/06/2025 4:[address] [facility] NRBC Absolute 0.00 <0.10 K/mcL LAB HEMETOLOGY METHOD 04/06/2025 4:[address] [facility] Neutrophils Relative 73.8 % LAB HEMETOLOGY METHOD 04/06/2025 4:[address] [facility] Lymphocytes Relative 15.1 % LAB HEMETOLOGY METHOD 04/06/2025 4:[address] [facility] Monocytes Relative 7.9 % LAB HEMETOLOGY METHOD 04/06/2025 4:[address] [facility] Eosinophils Relative 1.5 % LAB HEMETOLOGY METHOD 04/06/2025 4:[address] [facility] Basophils Relative 1.3 % LAB HEMETOLOGY METHOD 04/06/2025 4:[address] [facility] Immature Granulocytes Relative 0.4 % LAB HEMETOLOGY METHOD 04/06/2025 4:[address] [facility] Neutrophils Absolute 5.07 1.50 - 7.00 K/mcL LAB HEMETOLOGY METHOD 04/06/2025 4:[address] [facility] Lymphocytes Absolute 1.04 1.00 - 5.00 K/mcL LAB HEMETOLOGY METHOD 04/06/2025 4:22 PM EST [facility] Monocytes Absolute 0.54 0.20 - 1.00 K/[facility] LAB HEMETOLOGY METHOD 04/06/2025 4:22 PM EST [facility] Eosinophils Absolute 0.10 0.00 - 0.50 K/mcL LAB HEMETOLOGY METHOD 04/06/2025 4:22 PM EST [facility] Basophils Absolute 0.09 0.00 - 0.20 K/[facility] LAB HEMETOLOGY METHOD 04/06/2025 4:22 PM EST [facility] Immature Granulocytes Absolute 0.03 0.00 - 0.03 K/[facility] LAB HEMETOLOGY METHOD 04/06/2025 4:22 PM EST [facility] Blood Venous blood specimen / Unknown Venipuncture / Unknown 04/06/2025 2:52 PM EST 04/06/2025 4:05 PM EST Rober Vaughan MD LAB BLOOD ORDERABLES Final Res ult [facility] [address] [place] [address], [place] [phone] * Sedimentation rate (04/06/2025 2:52 PM EST) Sed Rate 9 0 - 20 mm/hr LAB HEMETOLOGY METHOD 04/06/2025 4:29 PM EST [facility] Blood Venous blood specimen / Unknown Venipuncture / Unknown 04/06/2025 2:52 PM EST 04/06/2025 4:05 PM EST Rober Vaughan MD LAB BLOOD ORDERABLES Final Res ult [facility] [address] [place] [address], [place] [phone] * Thyroid stimulating hormone (04/06/2025 2:52 PM EST) TSH 1.82 0.40 - 4.00 mcIU/mL LAB CHEMISTRY METHOD 04/06/2025 5:52 PM EST [facility] Blood Venous blood specimen / Unknown Venipuncture / Unknown 04/06/2025 2:52 PM EST 04/06/2025 4:05 PM EST us Rober Vaughan MD LAB BLOOD ORDERABLES Final Res ult [facility] [address] [place] [address], * (ABNORMAL) Comprehensive metabolic panel (04/06/2025 2:52 PM EST) Only the most recent of2 resultswithin the time period is included. Pathologist [facility] Sodium 140 133 - 145 mmol/L LAB CHEMISTRY METHOD 04/06/2025 5:[address] [facility] Potassium 4.5 3.5 - 5.5 mmol/L LAB CHEMISTRY METHOD 04/06/2025 5:[address] [facility] Chloride 109 96 - 110 mmol/L LAB CHEMISTRY METHOD 04/06/2025 5:[address] [facility] CO2 26 21 - 32 mmol/L LAB CHEMISTRY METHOD 04/06/2025 5:[address] [facility] Anion Gap 5 3 - 11 LAB CHEMISTRY METHOD 04/06/2025 5:[address] [facility] Glucose 80 70 - 100 mg/dL LAB CHEMISTRY METHOD 04/06/2025 5:[address] [facility] BUN 33(H) 5 - 25 mg/dL LAB CHEMISTRY METHOD 04/06/2025 5:[address] [facility] Creatinine 1.97(H) 0.70 - 1.30 mg/dL LAB CHEMISTRY METHOD 04/06/2025 5:[address] [facility] eGFR 35(L) >=60 mL/min/1. 73m2 LAB CHEMISTRY METHOD 04/06/2025 5:[address] [facility] Comment:Calculation based on the Chronic Kidney Disease Epidemiology Collaboration (CKD-EPI) equation refit without adjustment for race. BUN/Creatinine Ratio 16.8 LAB CHEMISTRY METHOD 04/06/2025 5:[address] [facility] Calcium 9.1 8.5 - 10.5 mg/dL LAB CHEMISTRY METHOD 04/06/2025 5:[address] [facility] AST (SGOT) 18 10 - 42 unit/L LAB CHEMISTRY METHOD 04/06/2025 5:[address] [facility] ALT (SGPT) 26 10 - 60 unit/L LAB CHEMISTRY METHOD 04/06/2025 5:[address] [facility] Alkaline Phosphatase 50 42 - 121 unit/L LAB CHEMISTRY METHOD 04/06/2025 5:[address] [facility] Total Protein 6.5 6.0 - 8.0 g/dL LAB CHEMISTRY METHOD 04/06/2025 5:[address] [facility] Albumin 4.1 3.2 - 5.0 g/dL LAB CHEMISTRY METHOD 04/06/2025 5:[address] [facility] Total Bilirubin 1.2 0.0 - 1.4 mg/dL LAB CHEMISTRY METHOD 04/06/2025 5:[address] [facility] Blood Venous blood specimen / Unknown Venipuncture / Unknown 04/06/2025 2:52 PM EST 04/06/2025 4:05 PM EST us Rober Vaughan MD LAB BLOOD ORDERABLES Final Res ult [facility] [address] [place] [address], [place] [phone] * Protein and creatinine with ratio, urine (03/27/2025 2:06 PM EST) Protein, Urine 29 mg/dL LAB CHEMISTRY METHOD 03/27/2025 4:44 PM EST [facility] Prot/Creat, Ur 0.11 <=0.20 mg/mg creat LAB CHEMISTRY METHOD 03/27/2025 4:44 PM EST [facility] Creatinine, Urine 275.0 mg/dL LAB CHEMISTRY METHOD 03/27/2025 4:44 PM EST [facility] Urine Urine specimen obtained by clean catch procedure / Unknown Non-blood Collection / Unknown 03/27/2025 2:06 PM EST 03/27/2025 2:24 PM EST us Napoleon Mooney MD LAB URINE ORDERABLES Final Result [facility] [address] [place] [address], [place] [phone] * Calcium, urine, random (03/27/2025 2:06 PM EST) Calcium, Ur <5.0 mg/dL LAB CHEMISTRY METHOD 03/27/2025 6:09 PM EST [facility] Comment:Results verified by repeat testing Urine Urine specimen obtained by clean catch procedure / Unknown Non-blood Collection / Unknown 03/27/2025 2:06 PM EST 03/27/2025 2:24 PM EST us Napoleon Mooney MD LAB URINE ORDERABLES Final Result [facility] [address] [place] [address], [place] [phone] * Vitamin D 1,25 dihydroxy (03/27/2025 1:57 PM EST) Vitamin D, 1, 25-Dihydroxy 34 20 - 79 pg/mL 03/30/2025 9:26 PM EST [facility] Comment: Vitamin D 1, 25 dihydroxy levels should be primarily used to assess Vitamin D status in patients with renal disease and hypercalcemia. Vitamin D 1,25-dihydroxy levels are generally less than 5 pg/mL in end stage renal disease patients. The preferred initial test for assessing Vitamin D status in the general population is Vitamin D 25-hydroxy (VITD). Test performed at [facility], [address] , [place] [address] Yue Armas MD, PhD - Aviation Maintenance In[employer] Blood Venous blood specimen / Unknown Venipuncture / Unknown 03/27/2025 1:57 PM EST 03/27/2025 2:06 PM EST us Napoleon Mooney MD LAB BLOOD ORDERABLES Final Result [facility] [address] [place] [address] * Uric acid (03/27/2025 1:57 PM EST) Uric Acid 4.6 3.7 - 9.2 mg/dL LAB CHEMISTRY METHOD 03/27/2025 4:53 PM EST [facility] Blood Venous blood specimen / Unknown Venipuncture / Unknown 03/27/2025 1:57 PM EST 03/27/2025 2:06 PM EST us Napoleon Mooney MD LAB BLOOD ORDERABLES Final Result [facility] [address] [place] [address], [place] [phone] * Phosphorus (03/27/2025 1:57 PM EST) Phosphorus 3.2 2.5 - 4.5 mg/dL LAB CHEMISTRY METHOD 03/27/2025 4:49 PM EST [facility] Blood Venous blood specimen / Unknown Venipuncture / Unknown 03/27/2025 1:57 PM EST 03/27/2025 2:06 PM EST us Napoleon Mooney MD LAB BLOOD ORDERABLES Final Result Performing Organization Address [facility] Co de Phone Number [facility] [address] [place] [address], [place] [phone] * Parathyroid hormone intact (03/27/2025 1:57 PM EST) [facility] PTH 87.0 18.5 - 88.0 pcg/mL LAB CHEMISTRY METHOD 03/27/2025 6:00 PM EST [facility] Blood Venous blood specimen / Unknown Venipuncture / Unknown 03/27/2025 1:57 PM EST 03/27/2025 2:06 PM EST us Napoleon Mooney MD LAB BLOOD ORDERABLES Final Result Performing Organization Address [facility] Co de Phone Number [facility] [address] [place] [address], [place] [phone] * Magnesium (03/27/2025 1:57 PM EST) [facility] Magnesium 2.2 1.9 - 2.6 mg/dL LAB CHEMISTRY METHOD 03/27/2025 4:49 PM EST [facility] Blood Venous blood specimen / Unknown Venipuncture / Unknown 03/27/2025 1:57 PM EST 03/27/2025 2:06 PM EST us Napoleon Mooney MD LAB BLOOD ORDERABLES Final Result Performing Organization Address [facility]/ZIP Co de Phone Number [facility] [address] [place] [address], [place] [phone] * (ABNORMAL) Lipid panel with reflex to direct LDL (12/12/2024 2:03 PM EDT) [facility] Cholesterol 160 0 - 200 mg/dL LAB CHEMISTRY METHOD 12/12/2024 6:02 PM EDT [facility] Triglycerides 178(H) 0 - 150 mg/dL LAB CHEMISTRY METHOD 12/12/2024 6:02 PM EDT [facility] HDL 41 >=40 mg/dL LAB CHEMISTRY METHOD 12/12/2024 6:02 PM EDT [facility] LDL Calculated 83 0 - 100 mg/dL LAB CHEMISTRY METHOD 12/12/2024 6:02 PM EDT [facility] VLDL Cholesterol Juan A 35.6 mg/dL LAB CHEMISTRY METHOD 12/12/2024 6:02 PM EDT [facility] Non HDL Chol. (LDL+VLDL) 119 <145 mg/dL LAB CHEMISTRY METHOD 12/12/2024 6:02 PM EDT [facility] Chol/HDL Ratio 3.9 0.0 - 4.4 LAB CHEMISTRY METHOD 12/12/2024 6:02 PM EDT [facility] Blood Venous blood specimen / Unknown Venipuncture / Unknown 12/12/2024 2:03 PM EDT 12/12/2024 3:10 PM EDT us Rober Vaughan MD LAB BLOOD ORDERABLES Final Res ult [facility] [address] [place] [address], from Last 3 Months or Most Recently Relevant to Health Maintenance Insurance [employer] [place] [employer]AGE Care Teams Inspector Set Up And Lay Out Relationship Specialty Start Date End Date Rober Vaughan MD [address] [place] [id number] PCP - General Internal Medicine 09/26/24
== END 2025-04-18 14:19 | disposition home or self-care (01) ==
LOC: HO.ACS 13:56
PROVIDERS: PCP Internal Medicine; Visit Provider Internal Medicine Medical Oncology
DX: Z79.01 Long term (current) use of anticoagulants (principal)

== ENCOUNTER → 2025-04-18 13:56 | Outpatient (BNVA) | payer MEDICARE, SELFPAY | PROVIDERS: PCP Internal Medicine; Visit Provider Internal Medicine Medical Oncology | DX: D73.5 Infarction of spleen (principal); Z79.01 Long term (current) use of anticoagulants; Z51.81 Encounter for therapeutic drug level monitoring | CPT/HCPCS: 85610; 99211 ==